=== PATIENT | female | born 1970 | race Caucasian/White ===

== ENCOUNTER 2024-06-25 19:35 | Emergency (ER) | payer OTHER, SELFPAY ==
[2024-06-25 19:51] VITALS: BP 124/77; PULSE 84; TEMP 37; O2SAT 97; BMI 25.3
--- NOTE | 2024-06-25 19:55 | ED_ITS ---
HPI HPI - Extremity Injury (Lower) General Chief Complaint: Extremity Injury, Lower Stated Complaint: Lower Pain Time Seen by Provider: 06/25/24 19:44 Source: patient Mode of arrival: walk-in Limitations: no limitations History of Present Illness HPI Narrative: 53-year-old female presents to the emergency department for pain to her right knee. She points to the ischial tuberosity region. Yesterday she tripped on a step and hit the knee on the corner of the step. No other injury was sustained, she did not hit her head. Is a sharp pain and it hurts more when she touches it or walks on it. Related Data Home Medications ?Medication ?Instructions ?Recorded ?Confirmed obeticholic acid 10 mg tablet mg 06/25/24 (Ocaliva) omeprazole 40 mg capsule,delayed mg 06/25/24 release phytonadione (vitamin K1) 5 mg mg 06/25/24 tablet ursodiol 300 mg capsule mg 06/25/24 Allergies Allergy/AdvReac Type Severity Reaction Status Date / Time codeine Allergy other Verified 06/25/24 19:55 Opioid HPI Opioid Management Most Recent Pain and Opioid Data: Last Pain Scale 6 06/25/24 20:09 06/25/24 Review of Systems ROS Narrative A ten point review of systems is negative except as noted above. PFSH PFSH Social History Little interest or pleasure in doing things: not at all Feeling down, depressed, or hopeless: not at all Exam Narrative Exam Narrative: Nurses note and vital signs reviewed and patient is not hypoxic. General: The patient appears well and in no apparent distress. Patient is resting comfortably on cart. Skin: Warm, dry, no pallor noted. There is no rash noted. Head: Normocephalic, atraumatic Eye: Normal conjunctiva, no drainage Ears, Nose, Mouth, and Throat: oral mucosa is moist. Nares patent. Cardiovascular: Regular Rate and Rhythm Respiratory: Patient is in no distress, no accessory muscle use Back: non-tender GI: Nontender Musculoskeletal: The right knee has no visible swelling. She has some tenderness in the tibial tuberosity region. Skin intact, no abrasion or sw elling or erythema. Her knee has good range of motion. Neurological: A&O, normal speech Psychiatric: Cooperative Constitutional Vital Signs, click to edit/add: Last Vital Signs Temp 98.6 F 06/25/24 19:51 Pulse 84 06/25/24 19:51 Resp 20 06/25/24 19:51 BP 124/77 06/25/24 19:51 Pulse Ox 97 06/25/24 19:51 O2 Del Method Room Air 06/25/24 19:51 Course Vital Signs Vital signs: Vital Signs Temperature 98.6 F 06/25/24 19:51 Pulse Rate 84 06/25/24 19:51 Respiratory Rate 20 06/25/24 19:51 Blood Pressure 124/77 06/25/24 19:51 Pulse Oximetry 97 06/25/24 19:51 Oxygen Delivery Method Room Air 06/25/24 19:51 Temperature 98.6 F 06/25/24 19:51 Pulse Rate 84 06/25/24 19:51 Respiratory Rate 20 06/25/24 19:51 Blood Pressure 124/77 06/25/24 19:51 Pulse Oximetry 97 06/25/24 19:51 Oxygen Delivery Method Room Air 06/25/24 19:51 MDM - Extremity Injury (Lower) MDM Narrative Medical decision making narrative: My clinical impression is that the patient has a knee contusion. Mj wrap applied, application checked by me and found to be appropriate, she is neurovascularly intact. She was recommended ice and ibuprofen. Treatment diagnosis and follow-up were discussed with the patient. Differential Diagnosis Differential diagnosis: Likely other (Contusion, fracture) Imaging Data Right knee x-ray: My impression: No acute findings, degenerative changes present Discharge Plan Discharge Chief Complaint: Extremity Injury, Lower Clinical Impression: Contusion of right knee Patient Disposition: Home, Self-Care Time of Disposition Decision: 21:05 Condition: Good Mode of Transportation: Private Vehicle Prescriptions / Home Meds: No Action omeprazole 40 mg capsule,delayed release(DR/EC) ursodiol 300 mg capsule phytonadione (vitamin K1) 5 mg tablet Ocaliva 10 mg tablet Print Language: Moldovan Instructions: Contusion in Adults (ED) Referrals: LAURIE POSEY [Primary Care Provider] - 1 week
--- NOTE | 2024-06-25 20:08 | XR_ITS ---
[facility] [id number] Patient Name: DEMARCUS PRADO MRN: [id number] date: 1970 Sex: F Assigned Patient Location: ER Current Patient Location: Accession/Order Number: [id number] Exam Date: 06/25/2024 20:05 Report Date: 06/25/2024 21:34 At the request of: TJ CONDON Procedure: XR knee RT 3V EXAM: XR knee RT 3V HISTORY: fall COMPARISON: None. TECHNIQUE: 3 view right knee. FINDINGS: Osseous demineralization. No lytic or blastic or destructive bone process. No acute fracture. Joints are well-maintained. No significant narrowing. No subluxation, dislocation or joint effusion seen. There is some vascular calcifications/phleboliths along the medial left knee joints likely project intra-articular on lateral view. Extra-articular soft tissues are otherwise normal. XR/XR knee RT 3V IMPRESSION: 1. No acute bone or joint findings. Electronically authenticated by: GAMA FIGUEROA Date: 06/25/2024 21:34
== END 2024-06-25 21:12 | disposition home or self-care (01) ==
PROVIDERS: Emergency Provider Emergency Medicine; PCP Internal Medicine
DX: S80.01XA Contusion of right knee, initial encounter (principal); W01.10XA Fall on same level from slipping, tripping and stumbling with subsequent striking against unspecified object, initial encounter
CPT/HCPCS: 73562; 99283

== ENCOUNTER 2024-10-11 13:24 | Outpatient (OUT) | payer OTHER, SELFPAY ==
--- NOTE | 2024-10-11 13:30 | ECG_ITS ---
[facility] Test Date: 2024-10-11 Pat Name: DEMARCUS PRADO Department: Room: - Gender: Female Product Tester: : 1970 Requested By: LAURIE POSEY Order Number: [id number] Reading MD: NORMAN JONES Measurements Intervals [place] Rate: 81 P: 47 NC: 160 QRS: 65 QRSD: 100 T: 45 QT: 371 QTc: 431 Interpretive Statements SINUS RHYTHM No previous ECG available for comparison Electronically Signed On 10-12-2024 7:51:08 EST by NORMAN JONES
[2024-10-11 14:43] LABS: Basophils Percent Auto 0.3 % (0.2-2.0); Eosinophils Percent Auto 0.4 % (0.9-7.0); Hematocrit 42.4 % (36.0-48.0); Hemoglobin 13.5 g/dL (12.0-16.0); Immature Granulocytes Abs Auto 0.05 10^3/uL (0.00-0.03); Immature Granulocytes Pct Auto 0.6 % (0.0-0.5); Lymphocytes Absolute Auto 1.7 10^3/uL (1.2-3.8); Lymphocytes Percent Auto 21.6 % (20.5-60.0); Mean Corpuscular HGB Conc 31.8 g/dL (29.9-35.2); Mean Corpuscular Hemoglobin 31.3 pg (26.7-34.0); Mean Corpuscular Volume 98.4 fL (81.0-99.0); Mean Platelet Volume 10.1 fL (9.5-13.5); Monocytes Absolute Auto 0.6 10^3/uL (0.3-0.8); Monocytes Percent Auto 7.3 % (1.7-12.0); Neutrophils Absolute Auto 5.5 10^3/uL (1.4-6.5); Neutrophils Percent Auto 69.8 % (43.0-75.0); Platelet Count 261 10^3/uL (150-450); Red Blood Count 4.31 10^6/uL (4.20-5.40); Red Cell Distribution Width 12.7 % (11.0-15.0); White Blood Count 7.9 10^3/uL (4.0-11.0)
[2024-10-11 14:49] LABS: Anion Gap 9.4; BUN Creatinine Ratio 17.4; Calcium 8.7 mg/dL (8.5-10.1); Chloride 102 mmol/L (98-107); Estimated GFR (African America >60 (>=60 mL/min/1.73m^2); Estimated GFR (Non-African Ame >60 (>=60 mL/min/1.73m^2); Glucose 87 mg/dL (74-106); Potassium 3.4 mmol/L (3.5-5.1); Sodium 139 mmol/L (136-145)
[2024-10-11 15:07] LABS: INR 1.03; Partial Thromboplastin Time 29.1 sec (22.3-36.2); Prothrombin Time 10.9 sec (9.0-11.6)
[2024-10-15 13:05] LABS: Alanine Aminotransferase 55 U/L (14-59); Albumin Level 3.4 g/dL (3.4-5.0); Alkaline Phosphatase 514 U/L (46-116); Aspartate Amino Transferase 32 U/L (15-37); Bilirubin Direct <0.1 mg/dL (0.0-0.2); Bilirubin Total 0.2 mg/dL (0.2-1.0); Globulin 3.4 g/dL; Total Protein 6.8 g/dL (6.4-8.2)
== END 2024-10-11 13:25 | disposition home or self-care (01) ==
LOC: PST 13:25
PROVIDERS: PCP Internal Medicine; Visit Provider Otolaryngology
DX: Z01.810 Encounter for preprocedural cardiovascular examination (principal); Z01.812 Encounter for preprocedural laboratory examination; H69.91 Unspecified Eustachian tube disorder, right ear
CPT/HCPCS: 36415; 80048; 80076; 85025; 85610; 85730; 87811; 93005

== ENCOUNTER 2024-10-17 07:27 | Day surgery (SDC) | payer OTHER, SELFPAY ==
[2024-10-11 13:45] VITALS: BP 114/75; PULSE 99; TEMP 36.2; O2SAT 95; BMI 24.9
[2024-10-17] VITALS (10 sets, daily range): BP systolic 97–129; BP diastolic 61–81; PULSE 65–81; TEMP 36.1; O2SAT 93–99; BMI 24.8
--- NOTE | 2024-10-17 | OP_ITS ---
OPERATION DATE: 10/17/2024 PRIMARY CARE PHYSICIAN: Raul Christianson D.O. SURGEON: Mariel Ramos M.D. PREOPERATIVE DIAGNOSIS: Right eustachian tube dysfunction. POSTOPERATIVE DIAGNOSIS: Right eustachian tube dysfunction. PROCEDURE: Right myringotomy and tube with microdissection, placement of a T- tube. ANESTHESIA: General. COMPLICATIONS: None. FINDINGS: Right serous effusion with deep inferior and posterior tympanic membrane retraction. INDICATIONS: This 53-year-old woman with a history of multiple tubes as a youngster presented with a recent ear infection on the right with clear evidence of deep tympanic membrane retraction due to chronic eustachian tube dysfunction. PROCEDURE: Patient identified in the holding area and taken back to the OR where she was placed in the supine position. After induction of general anesthesia by LMA, the right ear was approached with the otomicroscope. Nitrous oxide was used for anesthesia, but because there was no air filled space in the middle ear or mastoids, there was no reduction of the tympanic membrane retraction. An anterior radial myringotomy was performed. Serous effusion suctioned from the ear, and a modified Mp?s T-tube was folded and inserted through the myringotomy using microdissection. The tube was then opened in the middle ear and suction used to try to gently reduce the retraction. The retraction could not be reduced from the incus and stapes head. Patient was then awakened and taken to the recovery room in good condition. WILLIAM
--- OUTSIDE RECORDS SUMMARY | 2024-10-17 07:30 | XMS_ITS | CCD ---
Author Organization [facility] Care Team Providers Care Sterile Instrument Technician Name Role Phone GIOVANNY HINSON Admitting Unavailable GIOVANNY HINSON Attending Unavailable LAURIE POSEY Referring Unavailable GIOVANNY HINSON Consulting Unavailable RAMIRO IRIZARRY V Consulting Unavailable GIOVANNY HINSON Admitting Unavailable GIOVANNY HINSON Attending Unavailable GIOVANNY HINSON Consulting Unavailable [facility] [place], DOCTOR Consulting Unavailable GIOVANNY HINSON Admitting Unavailable GIOVANNY HINSON Attending Unavailable Brandy Hernandez Unavailable Lance Nogueira Unavailable Oly Ruff Unavailable DO Laurie Posey Primary Care Provider BOOGIE Hernandez Attending Provider [phone] Brandy Hernandez Attending Unavailable Brandy Hernandez Admitting Unavailable Laurie Posey Primary Care Unavailable Va ARIAS-Lisette DRISCOLL Primary Care Provider RAUL CHRISTIANSON Referring Unavailable RAUL CHRISTIANSON Primary Care Unavailable Raul Christianson MD Primary Care Provider [phone] Raul Christianson DO Primary Care Provider LISETTE NOVA Referring Unavailable LISETTE NOVA Primary Care Unavailable LANCE NOGUEIRA Referring Unavailable LISETTE NOVA Primary Care Unavailable LAURIE POSEY Admitting Unavailable LAURIE POSEY Attending Unavailable RAUL CHRISTIANSON Primary Care Unavailable LISETTE NOVA Attending Unavailable LISETTE NOVA Referring Unavailable KUNS, LISETTE KHAN Primary Care Unavailable JOSE PAINTER Attending Unavailable LISETTE NOVA Referring Unavailable ANYSLISETTE Primary Care Unavailable LISETTE NOVA Attending Unavailable LISETTE NOVA Referring Unavailable KUNSLISETTE Primary Care Unavailable FURLONG, RAUL G Attending Unavailable ANYKushLISETTE Referring Unavailable FURLONG, RAUL G Primary Care Unavailable FURLONG, RAUL G Attending Unavailable FURLONG, RAUL G Referring Unavailable FURLONG, RAUL G Primary Care Unavailable JOSE PAINTER Attending Unavailable FURLONG, RAUL G Referring Unavailable FURLONG, RAUL G Primary Care Unavailable ANYKushLISETTEPIPER Attending Unavailable VALISETTEPIPER Referring Unavailable ANYS, PIPER Primary Care Unavailable LISETTE NOVA Attending Unavailable LISETTE NOVA Referring Unavailable VA, PIPER Primary Care Unavailable OKSANA JENNY W Attending Unavailable LISETTE NOVA Referring Unavailable GANDHI JENNY W Attending Unavailable GANDHI JENNY W Referring Unavailable GANDHI JENNY W Attending Unavailable GANDHI JENNY W Attending Unavailable GANDHI JENNY W Attending Unavailable GANDHI JENNY W Attending Unavailable TRAE GANN Attending Unavailable Allergies Allergy Classification Reported Allergen(s) Allergy Type Date of Onset Reaction(s) Facility [facility]io[facility]on[facility] (1 source) Codeine; Translations: [CODEINE] Drug Allergy 2 [facility] (20 sources) Codeine; Translations: [CODEINE] Drug Allergy 9 GI Disturbance, GI intolerance [facility] (1 source) Codeine Drug Allergy 9 [facility] Medications Current Medications Medication Drug Class(es) Dates Sig (Normalized) Sig (Original) [id number] 200 actuat albuterol 0.09 mg/actuat metered dose inhaler (20 sources) beta2-Adrenergic Agonist Start: 04-23-2024 take 2 puff(s) by inhalation every four hours albuterol HFA 90 mcg/act inhaler Inhale 2 puffs every 4 (four) hours if needed 04/23/2024 Active Start: 04-23-2024 take 2 puff(s) by mo uth every four hours as needed for wheezing albuterol (PROVENTIL HFA;VENTOLIN HFA) 90 mcg/actuation inhaler Indications: Bronchitis inhale 2 puffs by mouth every 4 hours as needed for wheezing 8.5 g 1 04/23/2024 Active Start: 10-25-2023 take 2 puff(s) by mo uth every six hours for wheezing albuterol (PROVENTIL HFA;VENTOLIN HFA) 90 mcg/actuation inhaler Indications: Bronchitis inhale 2 puffs by mouth and INTO THE LUNGS every 6 hours if needed for wheezing 8.5 g 1 10/25/2023 Active Start: 09-01-2023 End: 10-25-2023 take 2 puff(s) by inhalation every six hours as needed for wheezing albuterol (PROVENTIL HFA;VENTOLIN HFA) 90 mcg/actuation inhaler Indications: Bronchitis Inhale 2 puffs every 6 (six) hours as needed for wheezing. 18 g 1 09/01/2023 10/25/2023 Discontinued Start: 06-11-2022 take 2 puff(s) by in halation every four hours as needed Albuterol Sulfate HFA 108 (90 Base) MCG/ACT 2 puffs as needed Inhalation every 4 hrs Jun, Active Start: 06-11-2022 take 2 puff(s) by in halation every four hours as needed Albuterol Sulfate HFA 108 (90 Base) MCG/ACT 2 puffs as needed Inhalation every 4 hrs Jun, Active Start: 06-11-2022 Start: 06-11-2022 take 2 puff(s) by in halation every four hours as needed Albuterol Sulfate HFA 108 (90 Base) MCG/ACT 2 puffs as needed Inhalation every 4 hrs Jun, Active amoxicillin 500 mg oral capsule (2 sources) Penicillin-class Antibacterial Start: 09-01-2023 End: 09-08-2023 take 1 capsule by mouth in the morning, then take 1 capsule by mouth at bedtime amoxicillin (AMOXIL) 500 mg capsule Take 1 capsule (500 mg total) by mouth in the morning and 1 capsule (500 mg total) before bedtime. Do all this for 7 days. 14 capsule 0 09/01/2023 09/08/2023 Active Start: 06-11-2022 take 1 tablet by nadeen every twelve hours Amoxicillin 875 MG 1 tablet Orally every 12 hrs for 7 days Jun, Active amoxicillin 875 mg / clavulanate 125 mg oral tablet (7 sources) Penicillin-class Antibacterial Start: 10-04-2024 End: 10-14-2024 take 1 tablet by mouth in the morning amoxicillin-clavulanate (Augmentin) 875-125 MG tablet Indications: Acute suppurative otitis media without spontaneous rupture of ear drum, recurrence not specified, unspecified laterality Take 1 tablet (875 mg) by mouth in the morning and 1 tablet (875 mg) before bedtime. Do all this for 10 days. 20 tablet 10/04/2024 10/14/2024 Active Start: 08-16-2024 take 1 tablet by nadeen th twice daily at mealtime amoxicillin-pot clavulanate (AUGMENTIN) 875-125 mg per tablet TAKE 1 TABLET BY MOUTH TWICE DAILY FOR 10 DAYS. TAKE WITH FOOD 08/16/2024 Active Start: 09-11-2023 End: 09-21-2023 take 1 tablet by mouth once in the morning amoxicillin-pot clavulanate (AUGMENTIN) 875-125 mg per tablet Take 1 tablet by mouth in the morning and 1 tablet before bedtime. Do all this for 10 days. 20 tablet 0 09/11/2023 09/21/2023 Active benzocaine 15 mg / menthol 2.6 mg oral lozenge (20 sources) Standardized Chemical Allergen Start: 09-01-2023 benzocaine-menthoL (CEPACOL SORE THROAT, DAWSON-MEN,) 15-2.6 mg lozenge Dissolve 1 lozenge in the mouth every 2 (two) hours as needed (sore throat). 14 lozenge 1 09/01/2023 Active benzocaine-menth ol (Cepastat Sore Throat) 15-3.6 MG Dissolve 1 lozenge in the mouth every 2 (two) hours if needed for sore throat Active biotin 1 mg oral capsule (20 sources) biotin 1 MG caps ule Take by mouth. Active take 1 tablet by mouth in the mo rning biotin 1 mg tablet Take 1 tablet (1 mg total) by mouth in the morning. Active calcium carbonate 1500 mg oral tablet (20 sources) Start: 07-18-2019 take 1 tablet by mouth twice daily Calcium Carbonate (Calcium 600) 600 mg calcium (1,500 mg) Tablet Active 600 MG PO Twice daily July 18, 2019 12:00am calcium carbonat e (Tums) 500 MG chewable tablet Chew 500 mg in the morning. Active calcium carbonat e (OS-NILESH) 500 mg calcium (1,250 mg) chewable tablet Chew 1 tablet (500 mg total) and swallow in the morning. Active cholecalciferol 1.25 mg oral tablet (20 sources) Vitamin D Start: 07-18-2019 take 17569 [IU] by mouth twice daily Cholecalciferol (Vitamin D3) Active 62510 UNIT PO Twice daily July 18, 2019 12:00am take 1 capsule by mouth every we ek cholecalciferol (Vitamin D-3) 1.25 MG (54597 UT) capsule Take 50,000 Units by mouth 1 (one) time per week. Active take 1 capsule by mouth in the m orning cholecalciferol (VITAMIN D3) 50,000 units capsule Take 1 capsule (50,000 Units total) by mouth in the morning. Active take 1 capsule by [facility] every twenty-four hours D3-50 1.25 MG (88655 UT) 1 capsule Oral ONCE A DAY for 30 Active take 1 capsule by mouth twice da judy D3-50 1.25 MG (42227 UT) take 1 capsule by mouth twice a day Oral for 30 Active clindamycin 300 mg oral capsule (2 sources) Lincosamide Antibacterial Start: 10-13-2023 End: 10-20-2023 take 1 capsule by mouth three times daily clindamycin (CLEOCIN) 300 mg capsule Indications: Osteomyelitis of left foot, unspecified type ([facility]) Take 1 capsule (300 mg total) by mouth 3 (three) times a day for 7 days. 21 capsule 0 10/13/2023 10/20/2023 Active Start: 12-22-2021 take 1 capsule by [facility] every eight hours Clindamycin HCl 300 MG 1 cap(s) Orally tid for 10 day(s) Dec, Active 12 hr dextromethorphan hydrobromide 60 mg / guaiFENesin 1200 mg extended release oral tablet (16 sources) Uncompetitive C-umxfur-N-aspartate Receptor Antagonist, Sigma-1 Agonist Start: 08-16-2024 take 60-1200 mg by mouth every twelve hours as needed Dextromethorphan-guaiFENesin (Mucus Relief DM Max) 60-1200 MG tablet sustained-release 12 hour TAKE 1 TABLET BY MOUTH EVERY 12 HOURS NEEDED FOR COUGH AND CONGESTION WITH A FULL GLASS OF WATER. 08/16/2024 Active Start: 10-13-2023 End: 10-23-2023 take 1 tablet by mouth every hour as needed dextromethorphan-guaiFENesin (MUCINEX DM ) 30-600 mg tablet extended release 12 hr Indications: COVID Take 1 tablet by mouth every 12 (twelve) hours as needed (cough and congestion) for up to 10 days. 20 tablet 0 10/13/2023 10/23/2023 Active dextromethorphan hydrobromide 3 mg/ml / promethazine hydrochloride 1.25 mg/ml oral solution (20 sources) Phenothiazine, Uncompetitive L-execky-C-aspartate Receptor Antagonist, Sigma-1 Agonist Start: 09-11-2023 promethazine-dextromethorpha n (Phenergan-DM) 6.25-15 MG/5ML syrup Take 5 mL by mouth 4 (four) times a day as needed 09/11/2023 Active escitalopram 20 mg oral tablet (20 sources) Serotonin Reuptake Inhibitor Start: 06-24-2024 escitalopram (LEXAPRO) 20 mg tablet Take 1.5 tablets (30 mg total) by mouth in the morning. Taking 1 1/2 tabs. 06/24/2024 Active Start: 06-16-2023 End: 06-24-2024 take 1 tablet by mouth once daily in the morning escitalopram (LEXAPRO) 20 mg tablet take 1 tablet by mouth every morning 90 tablet 1 06/16/2023 06/24/2024 Discontinued take 1 tablet by nadeen th once daily in the morning Escitalopram Oxalate 10 MG take 1 tablet by mouth every morning Oral for 30 Days Active ferrous sulfate 325 mg oral tablet (20 sources) Start: 07-18-2019 take 1 tablet by mouth in the morning, then take 1 tablet by mouth at bedtime FeroSuL 325 mg (65 mg iron) tablet Take 1 tablet (325 mg total) by mouth in the morning and 1 tablet (325 mg total) before bedtime. 05/29/2022 Active ferrous sulfate 8.8 mg/mL elemental iron elixir 65 mg of iron. Active fluticasone propionate 0.05 mg/actuat metered dose nasal spray (20 sources) Corticosteroid Start: 06-24-2024 fluticasone pr opionate (FLONASE) 50 mcg/actuation nasal spray Administer 1 spray into each nostril as needed for rhinitis. 16 g 5 06/24/2024 Active Start: 06-11-2022 End: 06-24-2024 fluticasone propionate (FLON ASE) 50 mcg/actuation nasal spray Administer 1 spray into each nostril as needed. 06/11/2022 06/24/2024 Discontinued (Reorder) Start: 06-11-2022 take 1 spray(s) nasa l route once daily Fluticasone Propionate 50 MCG/ACT 1 spray in each nostril Nasally Once a day for 30 day(s) Jun, Active Start: 06-11-2022 take 1 spray(s) nasa l route once daily Fluticasone Propionate 50 MCG/ACT 1 spray in each nostril Nasally Once a day for 30 day(s) Jun, Active Start: 06-11-2022 take 1 spray(s) nasa l route in the morning fluticasone (Flonase) 50 MCG/ACT nasal spray Administer 1 spray into each nostril in the morning. Shake gently. Before first use, prime pump. After use, clean tip and replace cap.. Active 12 hr guaiFENesin 600 mg extended release oral tablet (20 sources) Start: 09-01-2023 take 1 tablet by mouth once guaiFENesin (MUCINEX) 600 mg tablet extended release 12hr Take 1 tablet (600 mg total) by mouth every 12 (twelve) hours. 20 tablet 1 09/01/2023 Active inhalational spacing device (AEROCHAMBER MV) spacer (20 sources) Start: 09-01-2023 inhalational s pacing device (AEROCHAMBER MV) spacer 1 each by miscellaneous route every 6 (six) hours as needed (use with albuterol). 1 each 09/01/2023 Active Start: 09-01-2023 inhalational s pacing device (AEROCHAMBER MV) spacer 1 each by miscellaneous route every 6 (six) hours as needed (use with albuterol). 1 each 0 09/01/2023 Active methylPREDNISolone 4 mg oral tablet (1 source) Corticosteroid Start: 06-11-2022 methylPREDNISo lone 4 MG as directed Orally Once a day for 6 days Jun, Active qfuunxjoujko-sxnvbxjd-gutu in (MULTIVITAMIN 50 PLUS) tablet (20 sources) multivitamin-min erals-lut ein (MULTIVITAMIN 50 PLUS) tablet 1 tablet in the morning. Active multivitamin-min erals-lutein (MULTIVITAMIN 50 PLUS) tablet 1 tablet in the morning. 0 Active 24 hr nicotine 0.875 mg/hr transdermal system (20 sources) Cholinergic Nicotinic Agonist Start: 05-18-2023 apply 1 dose transdermal route once daily nicotine (NICODERM CQ) 21 mg/[address] 1 patch on the skin daily. 30 patch 1 05/18/2023 Active apply 1 dose transdermal route o nce daily Nicotine 14 MG/24HR apply 1 patch TO CLEAN, DRY, AND INTACT SKIN REMOVE AND REPLACE once daily Transdermal for 28 Not-Taking obeticholic acid 10 mg oral tablet (20 sources) Farnesoid X Receptor Agonist Start: 11-16-2023 Ocaliva 10 MG tablet 11/16/2023 Active Start: 06-15-2023 OCALIVA 5 mg t ablet 06/15/2023 Active Start: 05-31-2023 take 1 tablet by nadeen once daily Obeticholic Acid 5 MG 1 tablet Orally Once a day for 90 days [facility] APPROVAL NUMBER - [id number] VALID 06/02/23-05/31/24 May, Active omeprazole 40 mg delayed release oral capsule (20 sources) Proton Pump Inhibitor Start: 09-04-2022 omeprazo le (PriLOSEC) 40 mg capsule 1 capsule (40 mg total) in the morning and 1 capsule (40 mg total) before bedtime. 09/04/2022 Active PriLOSEC Active predniSONE 20 mg oral tablet (11 sources) Start: 11-02-2023 End: 11-09-2023 take 1 tablet by mouth in the morning predniSONE (DELTASONE) 20 mg tablet Indications: COVID Take 1 tablet (20 mg total) by mouth in the morning for 7 days. 7 tablet 0 11/02/2023 11/09/2023 Active Start: 09-11-2023 End: 09-18-2023 take 1 tablet by mouth in the morning predniSONE (DELTASONE) 20 mg tablet Take 1 tablet (20 mg total) by mouth in the morning for 7 days. 7 tablet 0 09/11/2023 09/18/2023 Active Start: 09-01-2023 End: 09-06-2023 take 1 tablet by mouth in the morning, then take 1 tablet by mouth at bedtime predniSONE (DELTASONE) 20 mg tablet Take 1 tablet (20 mg total) by mouth in the morning and 1 tablet (20 mg total) before bedtime. Do all this for 5 days. 10 tablet 0 09/01/2023 09/06/2023 Active Start: 11-02-2022 predniSONE 10 MG 2 tablets x 3 days then 1 tablet x 3 days Orally Once a day for 6 days Nov, Not-Taking/PRN Start: 11-02-2022 RA One Daily Maximum - (14 sources) take 1 tablet by mouth twice waldemar ly RA One Daily Maximum - take 1 tablet by mouth twice a day Oral for 30 Active Tab-A-Nae/Beta Carotene - (6 sources) take 1 tablet by mouth twice daily Tab-A-Nae/Beta Carotene - take 1 tablet by mouth twice a day Oral for 30 Active tiZANidine 4 mg oral tablet (20 sources) Central alpha-2 Adrenergic Agonist Start: 06-08-20 take 1 tablet by mouth at bedtime tiZANidine (ZANAFLEX) 4 mg tablet Indications: Degeneration of lumbar intervertebral disc Take 1 tablet (4 mg total) by mouth in the morning and at bedtime. 60 tablet 2 06/08/2022 Active Zanaflex 4 MG 1 capsule as needed Orally PRN ONLY Active Zanaflex Active traMADol hydrochloride 50 mg oral tablet (20 sources) Opioid Agonist Start: 10-01-2024 End: 10-31-2024 take 1 tablet by mouth every six hours as needed for pain traMADoL (ULTRAM) 50 mg tablet Indications: Degeneration of inte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 Take 1 tablet (50 mg total) by mouth every 6 (six) hours as needed for pain for up to 30 days. 120 tablet 10/01/2024 10/31/2024 Active Start: 08-29-2024 End: 09-28-2024 take 1 tablet by mouth four times daily at bedtime as needed for pain traMADoL (ULTRAM) 50 mg tablet Indications: Degeneration of lumbar intervertebral disc Take 1 tablet (50 mg total) by mouth 4 (four) times daily after meals and at bedtime as needed (as needed for back pain) for up to 30 days. 120 tablet 08/29/2024 09/28/2024 Active Start: 07-26-2024 End: 08-26-2024 take 1 tablet by mouth four times daily at bedtime as needed for pain traMADoL (ULTRAM) 50 mg tablet Indications: Degeneration of lumbar intervertebral disc Take 1 tablet (50 mg total) by mouth 4 (four) times daily after meals and at bedtime as needed (as needed for back pain) for up to 30 days. 120 tablet 07/26/2024 08/26/2024 Discontinued (Reorder) Start: 06-20-2024 End: 07-20-2024 take 1 tablet by mouth four times daily at bedtime as needed for pain traMADoL (ULTRAM) 50 mg tablet Indications: Degeneration of lumbar intervertebral disc Take 1 tablet (50 mg total) by mouth 4 (four) times daily after meals and at bedtime as needed (as needed for back pain) for up to 30 days. 120 tablet 06/20/2024 07/20/2024 Active Start: 01-04-2024 End: 02-03-2024 take 1 tablet by mouth four times daily at bedtime as needed for pain traMADoL (ULTRAM) 50 mg tablet Indications: Degeneration of lumbar intervertebral disc Take 1 tablet (50 mg total) by mouth 4 (four) times daily after meals and at bedtime as needed (as needed for back pain) for up to 30 days. 120 tablet 01/04/2024 02/03/2024 Active Start: 11-02-2023 End: 12-30-2023 take 1 tablet by mouth four times daily at bedtime as needed for pain traMADoL (ULTRAM) 50 mg tablet Indications: Degeneration of lumbar intervertebral disc Take 1 tablet (50 mg total) by mouth 4 (four) times daily after meals and at bedtime as needed (as needed for back pain) for up to 30 days. 120 tablet 0 11/30/2023 12/30/2023 Active Start: 09-29-2023 End: 10-29-2023 take 1 tablet by mouth four times daily at bedtime as needed for pain traMADoL (ULTRAM) 50 mg tablet Indications: Degeneration of lumbar intervertebral disc Take 1 tablet (50 mg total) by mouth 4 (four) times daily after meals and at bedtime as needed (as needed for back pain) for up to 30 days. 120 tablet 0 09/29/2023 10/29/2023 Active Start: 07-25-2023 End: 09-24-2023 take 1 tablet by mouth four times daily at bedtime as needed for pain traMADoL (ULTRAM) 50 mg tablet Indications: Degeneration of lumbar intervertebral disc Take 1 tablet (50 mg total) by mouth 4 (four) times daily after meals and at bedtime as needed (as needed for back pain) for up to 30 days. 120 tablet 0 08/25/2023 09/24/2023 Active Start: 07-18-2019 take 50 mg by mouth three times daily Tramadol Active 50 MG PO Three times daily July 18, 2019 12:00am ursodiol 300 mg oral capsule (20 sources) Bile Acid Start: 12-23-2020 ursodiol (Actigall) 300 MG capsule 09/08/2024 Active valACYclovir 1000 mg oral tablet (20 sources) Herpesvirus Nucleoside Analog DNA Polymerase Inhibitor, Herpes Simplex Virus Nucleoside Analog DNA Polymerase Inhibitor, Herpes Zoster Virus Nucleoside Analog DNA Polymerase Inhibitor Start: 06-24-2024 take 2 tablets by mouth twice daily as needed valACYclovir (VALTREX) 1000 mg tablet Take 2 tablets (2,000 mg total) by mouth 2 (two) times a day as needed (cold sore). 06/24/2024 Active Start: 06-18-2023 End: 06-24-2024 take 2 tablets by mouth every twelve hours valACYclovir (VALTREX) 1000 mg tablet take 2 tablets by mouth every 12 hours for 1 day 4 tablet 5 06/18/2023 06/24/2024 Discontinued valACYclovir (Va ltrex) 1 g tablet Take 1,000 mg by mouth in the morning and 1,000 mg before bedtime. Active vitamin k 0.1 mg oral tablet (20 sources) phytonadione (Vi tamin K) 100 MCG tablet Take by mouth. Active phytonadione, vi t K1, (phytonadione, vitamin K1,) 100 mcg tablet Take 12 tablets (1,200 mcg total) by mouth once a week. Active zinc gluconate 50 mg oral tablet (20 sources) take 1 tablet by nadeen th in the morning zinc gluconate 50 MG tablet Take 50 mg by mouth in the morning. Active Completed/Discontinued Medications Medication Drug Class(es) Dates Sig (Normalized) Sig (Original) cefuroxime 500 mg oral tablet (7 sources) Cephalosporin Antibacterial Start: 11-02-2022 take 1 tablet by mouth every twelve hours Cefuroxime Axetil 500 MG 1 tablet Orally every 12 hrs for 7 days Nov, Not-Taking/PRN cephalexin 500 mg oral capsule (13 sources) Cephalosporin Antibacterial Start: 10-06-2023 End: 10-13-2023 CEPHalexin (KEFLEX) 500 mg capsule Take 1 capsule (500 mg total) by mouth in the morning and 1 capsule (500 mg total) at noon and 1 capsule (500 mg total) in the evening and 1 capsule (500 mg total) before bedtime. Do all this for 7 days. 28 capsule 0 10/06/2023 10/13/2023 Start: 03-01-2023 take 1 capsule by mo uth every eight hours Cephalexin 500 MG 1 capsule Orally tid for 10 day(s) Feb, Active Start: 06-28-2021 take 1 capsule by mo uth every eight hours Cephalexin 500 MG 1 capsule Orally three times a day for 7 days Jun, Active Cephalexin Activ e phenazopyridine hydrochloride 200 mg oral tablet (20 sources) Start: 08-24-2022 End: 09-11-2023 take 1 tablet by mouth three times daily as needed for muscle spasms phenazopyridine (PYRIDIUM) 200 mg tablet Indications: Acute cystitis without hematuria Take 1 tablet (200 mg total) by mouth 3 (three) times a day as needed for bladder spasms. 10 tablet 0 08/24/2022 09/11/2023 Discontinued (Therapy completed) Start: 06-28-2021 take 1 tablet by nadeen th every eight hours Pyridium 200 MG 1 tablet after meals Orally Three times a day for 2 day(s) Jun, Active take 1 tablet by nadeen th three times daily as needed for muscle spasms phenazopyridine (Pyridium) 200 MG tablet Take 200 mg by mouth 3 (three) times a day as needed for bladder spasms. Active Problems Active Problems Problem Classification Problem Date Documented Da te Episodic/Chronic Abdominal pain (14 sources) Abdominal pain; Translations: [Unspecified abdominal pain] Episodic Anxiety disorders (19 sources) Anxiety; Translations: [Anxiety disorder, unspecified] Onset: 09-03-2024 03-04-2024 Chronic Fracture of lower limb (1 source) Closed fracture of first metatarsal bone ; Translations: [Nondisplaced fracture of first metatarsal bone, left foot, subsequent encounter for fracture with delayed healing] 11-09-2023 Episodic Genitourinary symptoms and ill-defined conditions (3 sources) Dysuria; Translations: [Dysuria] Onset: 06-28-2021 Resolved: 06-28-2021 Episodic Hepatitis (14 sources) Autoimmune hepatitis; Translations: [Autoimmune hepatitis] Chronic Infective arthritis and osteomyelitis (except that caused by tuberculosis or sexually transmitted disease) (3 sources) Osteomyelitis of left foot; Translations: [Osteomyelitis, unspecified] Onset: 10-13-2023 10-13-2023 Chronic Nutritional deficiencies (1 source) Vitamin D deficiency, unspecified; Translations: [Vitamin D deficiency, unspecified] Onset: 11-07-2023 Chronic Other congenital anomalies (6 sources) Porokeratosis; Translations: [Other specified congenital malformations of skin] 06-06-2024 Chronic Other connective tissue disease (6 sources) Pain in both feet; Translations: [Pain in right foot] 06-06-2024 Episodic Other connective tissue disease (2 sources) Bilateral metatarsalgia; Translations: [Metatarsalgia, right foot] 06-06-2024 Episodic Other ear and sense organ disorders (1 source) Conductive hearing loss, unilateral, right ear, with unrestricted hearing on the contralateral side; Translations: [Conductive hearing loss, unilateral] 10-16-2024 Chronic Other gastrointestinal disorders (1 source) Intestinal malabsorption, unspecified; Translations: [Intestinal malabsorption, unspecified] Onset: 11-07-2023 Chronic Other gastrointestinal disorders (1 source) Feces contents abnormal; Translations: [Other fecal abnormalities] 06-17-2024 Episodic Other gastrointestinal disorders (1 source) Other fecal abnormalities; Translations: [Other fecal abnormalities] Onset: 07-17-2024 Episodic Other injuries and conditions due to external causes (1 source) Other injury of unspecified body region, initial encounter Episodic Other liver diseases (8 sources) Primary biliary cirrhosis; Translations: [PRIMARY BILIARY CIRRHOSIS] Onset: 08-26-2019 Resolved: 11-30-2021 Chronic Other liver diseases (20 sources) Primary biliary cholangitis; 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] Onset: 08-19-2019 05-06-2022 Chronic Other liver diseases (2 sources) Abnormal levels of other serum enzymes; Translations: [ABNORMAL LEVELS OTHER SERUM ENZYMES] Onset: 06-26-2019 Episodic Other liver diseases (13 sources) Liver enzymes abnormal; Translations: [Abnormal levels of other serum enzymes] Episodic Other nervous system disorders (20 sources) Carpal tunnel syndrome; Translations: [Carpal tunnel syndrome, unspecified upper limb] Onset: 05-06-2022 05-06-2022 Chronic Other nutritional; endocrine; and metabolic disorders (1 source) Overweight; Translations: [Overweight] 06-24-2024 Episodic Other skin disorders (6 sources) Callosity; Translations: [Corns and callosities] 06-06-2024 Episodic Other skin disorders (6 sources) Acquired keratoderma; 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] 06-06-2024 Episodic Other upper respiratory disease (1 source) Allergic rhinitis, unspecified Chronic Other upper respiratory infections (15 sources) Sinusitis; Translations: [Chronic sinusitis, unspecified] Chronic Otitis media and related conditions (11 sources) Unspecified nonsuppurative otitis media, right ear; Translations: [Finding of fluid behind tympanic membrane] Onset: 08-23-2024 Episodic Residual codes; unclassified (1 source) Viral syndrome; Translations: [Other general symptoms and signs] 10-13-2023 Episodic Spondylosis; intervertebral disc disorders; other back problems (20 sources) Degeneration of lumbar intervertebral disc; Translations: [Other intervertebral disc degeneration, lumbar region] Onset: 09-01-2020 05-06-2022 Chronic Substance-related disorders (1 source) Nicotine dependence, cigarettes, uncomplicated; Translations: [Nicotine dependence, cigarettes, uncomplicated] Onset: 03-04-2024 Chronic Unclassified (1 source) abnormal findings in stool Onset: 07-17-2024 Unclassified (1 source) Controlled Sub Onset: 03-04-2024 Unclassified (1 source) Sinus Problem Onset: 09-11-2023 Viral infection (2 sources) Disease caused by 2019-nCoV; Translations: [COVID-19] 10-13-2023 Episodic Viral infection (1 source) COVID-19; Translations: [COVID-19] Onset: 11-02-2023 Past or Other Problems Problem Classification Problem Date Documented Da te Episodic/Chronic Administrative/social admission (1 source) Counseling procedure with explicit context; Translations: [Tobacco abuse counseling] 09-11-2023 Episodic Chronic obstructive pulmonary disease and bronchiectasis (3 sources) Bronchitis; Translations: [Bronchitis, not specified as acute or chronic] Onset: 09-01-2023 10-25-2023 Episodic Deficiency and other anemia (20 sources) Anemia; Translations: [Anemia, unspecified] Onset: 05-06-2022 05-06-2022 Episodic Deficiency and other anemia (1 source) Iron deficiency anemia, unspecified; Translations: [Iron deficiency anemia, unspecified] Onset: 11-07-2023 Episodic Malaise and fatigue (20 sources) Malaise and fatigue; Translations: [Other malaise] Onset: 05-06-2022 05-06-2022 Episodic Mood disorders (20 sources) Mood disorders Onset: 09-11-2023 Resolved: 10-13-2023 09-11-2023 Nutritional deficiencies (2 sources) Dietary zinc deficiency; Translations: [Vitamin A deficiency, unspecified] Onset: 11-07-2023 Episodic Other gastrointestinal disorders (1 source) Bariatric surgery status; Translations: [Bariatric surgery status] Onset: 11-07-2023 Episodic Other gastrointestinal disorders (16 sources) Stool DNA-based colorectal cancer screening positive; Translations: [Other fecal abnormalities] Onset: 07-07-2024 07-17-2024 Episodic Other lower respiratory disease (1 source) Cough Onset: 09-01-2023 Episodic Other nutritional; endocrine; and metabolic disorders (20 sources) Obesity; Translations: [Obesity, unspecified] Onset: 05-06-2022 Resolved: 03-04-2024 05-06-2022 Chronic Other nutritional; endocrine; and metabolic disorders (1 source) Overweight; Translations: [Overweight] Onset: 03-04-2024 Episodic Other screening for suspected conditions (not mental disorders or infectious disease) (19 sources) Abnormal findings on diagnostic imaging of other abdominal regions, including retroperitoneum; Translations: [CT of abdomen abnormal] Onset: 06-20-2019 Episodic Other upper respiratory infections (4 sources) Acute pharyngitis, unspecified; Translations: [Upper respiratory infection] Onset: 09-11-2023 Episodic Residual codes; unclassified (1 source) Edema, unspecified; Translations: [Edema, unspecified] Onset: 11-07-2023 Episodic Residual codes; unclassified (1 source) Other general symptoms and signs; Translations: [Other general symptoms and signs] Onset: 10-13-2023 Episodic Skin and subcutaneous tissue infections (5 sources) Cellulitis of left lower limb; Translations: [Local infection of the skin and subcutaneous tissue, unspecified] Onset: 12-22-2021 Resolved: 12-22-2021 Episodic Spondylosis; intervertebral disc disorders; other back problems (20 sources) Chronic back pain ; Translations: [Dorsalgia, unspecified] Onset: 12-05-2017 05-06-2022 Episodic Unclassified (20 sources) Onset: 08-25-2022 08-25-2022 Urinary tract infections (20 sources) Acute cystitis with hematuria; Translations: [Recurrent urinary tract infection] Onset: 06-28-2021 Resolved: 06-28-2021 Episodic Varicose veins of lower extremity (20 sources) Varicose veins of lower extremity; Translations: [Asymptomatic varicose veins of unspecified lower extremity] Onset: 12-23-2021 05-06-2022 Episodic Results Test Name Value Interpretation Reference Range Facility Auditory function testson Right Ear: Mild conductive hearing loss from 250 Hz - 500 Hz and above 2K Hz Left Ear: Normal hearing. Possible air bone gaps - could not mask bone conduction [facility] LIVER PANELon 5 Albumin [Mass/Vol] 3.4 g/dL 3.4 - 5.0 g/dL [facility] ALBUMIN GLOBULIN RATIO 1 [facility] ALP [Catalytic activity/Vol] 514 U/L High 46 - 116 U/L [facility] ALT [Catalytic activity/Vol] 55 U/L 14 - 59 U/L [facility] AST [Catalytic activity/Vol] 32 U/L 15 - 37 U/L [facility] Bilirubin [Mass/Vol] 0.2 mg/dL 0.2 - 1 .0 mg/dL [facility] Bilirubin.indirect [Mass/Vol] mg/dL 0.0 - 0.2 mg/dL [facility] Globulin (S) [Mass/Vol] 3.4 g/dL [facility] Interpretation and review of laboratory results Abnormal [facility] Protein [Mass/Vol] 6.8 g/dL 6.4 - 8.2 g/dL [facility] ECG 12-LEADon 10-12-2024 [facility] [place] [id number] Electrocardiograph Report Signed Patient: ARUNA BENZ MR#: [id number] : 1970 Acct:[id number] Age/Sex: 53 / F ADM Date: 10/11/24 Loc: PST Attending Dr: Trae Gann M.D. Ordering Physician: Trae Gann M.D. Date of Service: 10/11/24 Procedure(s): ECG 12 lead Accession Number(s): [id number] cc: [facility] Test Date: 2024-10-11 Pat Name: ARUNA BENZ Department: Room: - Gender: Female Services Coordinator: : 1970 Requested By: LAURIE POSEY Order Number: [id number] Reading MD: CASH LALA Measurements Intervals [place] Rate: 81 P: 47 IA: 160 QRS: 65 QRSD: 100 T: 45 QT: 371 QTc: 431 Interpretive Statements SINUS RHYTHM No previous ECG available for comparison Electronically Signed On 10-12-2024 7:51:08 EST by CASH LALA Dictated By: Cash Lala D.O. Signed By: 10/12/24 0751 DD/ 1419 TD/TT: District Representative: [facility] Radiology, Radiologist, MD - 10/12/2024 [facility] [place] [id number] Electrocardiograph Report Signed Patient: ARUNA BENZ MR#: [id number] : 1970 Acct:[id number] Age/Sex: 53 / F ADM Date: 10/11/24 Loc: PST Attending Dr: Trae Gann M.D. Ordering Physician: Trae Gann M.D. Date of Service: 10/11/24 Procedure(s): ECG 12 lead Accession Number(s): [id number] cc: [facility] Test Date: 2024-10-11 Pat Name: ARUNA BENZ Department: Room: - Gender: Female Services Coordinator: : 1970 Requested By: LAURIE POSEY Order Number: [id number] Reading MD: CASH LALA Measurements Intervals [place] Rate: 81 P: 47 IA: 160 QRS: 65 QRSD: 100 T: 45 QT: 371 QTc: 431 Interpretive Statements SINUS RHYTHM No previous ECG available for comparison Electronically Signed On 10-12-2024 7:51:08 EST by CASH LALA Dictated By: Cash Lala D.O. Signed By: 10/12/24 0751 DD/ 1419 TD/TT: District Representative: [facility] ECG 12-LEADOrdered By: Radio logist Radiology on 10-12-2024 [facility] [employer] Work Phone: ALL BASIC METABOLIC PANELon 10-11-2024 Anion gap [Moles/Vol] 9.4 mmol/L [facility] Calcium [Mass/Vol] 8.7 mg/dL 8.5 - 10. 1 mg/dL [facility] Chloride [Moles/Vol] 102 mmol/L 98 - 10 7 mmol/L [facility] CO2 [Moles/Vol] 31 mmol/L 21.0 - 32.0 mmol/L [facility] Creatinine [Mass/Vol] 0.69 mg/dL 0.55 - 1.02 mg/dL [facility] GFR/1.73 sq M.predicted CKD-EPI (S/P/Bld) [Vol rate/Area] >60 >=60 mL/min/1.73m 2 [facility] Glucose [Mass/Vol] 87 mg/dL 74 - 106 mg/dL [facility] Interpretation and review of laboratory results Abnormal [facility] Potassium [Moles/Vol] 3.4 mmol/L Low 3.5 - 5.1 mmol/L [facility] Sodium [Moles/Vol] 139 mmol/L 136 - 145 mmol/L [facility] TBH EGFR-NON AF [place] >60 >=60 mL/min/1.73m 2 [facility] Urea nitrogen [Mass/Vol] 12 mg/dL 7.0 - 18.0 mg/dL [facility] Urea nitrogen/Creatinine [Mass ratio] 17.4 mg/mg [facility] Alexandre de Pariscar e ECG 12-LEADon 02-07-2025 Radiology Study observation (narrative) [facility] DRUG SCREEN, URINEon 024 AMPHETAMINE/METHAMP Negative Normal NEG [facility] Comment on above: Result Comment: AMPH /METH screening cut off = 1000 ng/mL Performed By: #### D HUMMEL #### [facility] ([id number]) [address], [address] [place] [address] BARBITURATES Negative Normal NEG [facility] Comment on above: Result Comment: Susanne iturates screening cut off value = 200 ng/mL Performed By: #### D HUMMEL #### [facility] ([id number]) [address], [address] [place] [address] BENZODIAZEPINES Negative Normal NEG [facility] Comment on above: Result Comment: Dawson odiazepines screening cut off value = 200 ng/mL Performed By: #### D HUMMEL #### [facility] ([id number]) [address], [address] [place] [address] CANNABINOIDS Negative Normal NEG [facility] Comment on above: Result Comment: Jenifer abinoids/THC screening cut off value = 50 ng/mL Performed By: #### D HUMMEL #### [facility] ([id number]) [address], [address] [place] [address] COCAINE METABOLITE Negative Normal NEG [facility] Comment on above: Result Comment: Coca ine screening cut off value = 300 ng/mL Performed By: #### D HUMMEL #### [facility] ([id number]) [address], [address] [place] [address] ECSTASY Negative Normal NEG [facility] Comment on above: Result Comment: Ecst asy screening cut off value = 500 ng/mL This report is intended for use in clinical monitoring or management of patients. Performed By: #### D HUMMEL #### [facility] ([id number]) [address], [address] [place] [address] METHADONE Negative Normal NEG [facility] Comment on above: Result Comment: Meth adone screening cut off value = 300 ng/mL. Performed By: #### D HUMMEL #### [facility] ([id number]) [address], [address] [place] [address] OPIATES Negative Normal NEG [facility] Comment on above: Result Comment: Opia eligio screening cut off value = 300 ng/mL NOTE: This test is used for the detection of codeine, hydrocodone (>1000 ng/mL), morphine and hydromorphone (>900 ng/mL) in urine. Performed By: #### D HUMMEL #### [facility] ([id number]) [address], [address] [place] [address] OXYCODONE Negative Normal NEG [facility] Comment on above: Result Comment: Oxyc odone screening cut off value = 300 ng/mL NOTE: This test is used for the detection of oxycodone and oxymorphone in urine. Performed By: #### D HUMMEL #### [facility] ([id number]) [address], [address] [place] [address] PHENCYCLIDINE Negative Normal NEG [facility] Comment on above: Result Comment: Phen cyclidine screening cut off value = 25 ng/mL Performed By: #### D HUMMEL #### [facility] ([id number]) [address], [address] [place] [address] MR FOOT LT WO CONTon 024 MR FOOT LT WO CONT MR FOOT LT WO CONT HISTORY AND/OR TECH NOTES Osteomyelitis of left foot, unspecified type ([facility]) No injury Since Sep 2023 cellulitis and 2nd toes in question Series ?8 PROCEDURE MRI of the left foot COMPARISON no comparison currently available FINDINGS The ankle and hindfoot are not included on the diagnostic imaging There is suggestion of mild arthritic change along the intertarsal and tarsometatarsal joints with trace effusions, probable mild reactive signal changes. No visible bone destruction or abnormal widening or fragmentation about the midfoot Lisfranc region There is no abnormal signal in the toes/phalanges There is no visible gas or foreign body artifact There is mild to moderate effusion first MTP without periarticular erosions or bone destruction There is mild effusion at the second through fifth metatarsal phalangeal joints There is intense signal abnormality within and around the distal second metatarsal head extending into the mid and distal shaft with mild surrounding soft tissue edema There is suggestion of a crescentic hypointense T1 abnormality at the articular surface with probable early flattening There is significant atrophy of the plantar and inter osseous musculature IMPRESSION: Intense signal abnormality distal second metatarsal with crescentic signal along the subcortical subchondral bone of the articular surface and mild flattening Joint effusion and periarticular edema and marrow edema involving the mid and distal metatarsal shaft The location, 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 This could also be seen with a subchondral insufficiency fracture Infection is considered less likely particularly given no adjacent ulcer, soft tissue gas or foreign body and given the lack of abnormal signal adjacent proximal phalangeal base Mild arthritic changes at the midfoot without fragmentation or bone destruction or malalignment Severe fatty replacement and atrophy of the musculature in the mid and forefoot Finalized by Braden Wang MD on 11/08/2023 1:49 PM Normal [facility] COMPREHENSIVE METABOLIC PANE [place] 11-07-2023 Albumin [Mass/Vol] 4.2 g/dL Normal 3.2-5.3 [facility] Comment on above: Performed By: #### C ANDRE #### [facility] ([id number]) [address] [place] [address], [address] [place] [address] #### 9622-2 #### [facility] ([id number]) [address] [place] [address], [place] [address] ALP [Catalytic activity/Vol] 306 U/L High 39-130 [facility] Comment on above: Performed By: #### C MP #### [facility] ([id number]) [address], [address] [place] [address] #### 9622-2 #### [facility] ([id number]) [address] [place] [address] ALT [Catalytic activity/Vol] 28 U/L Normal 0-31 [facility] Comment on above: Performed By: #### C MP #### [facility] ([id number]) [address] [facility], [address] [place] [address] #### 9622-2 #### [facility] ([id number]) [address] [place] [address] Anion gap [Moles/Vol] 8 mmol/L Normal 5-15 [facility] Comment on above: Performed By: #### C MP #### [facility] ([id number]) [address] [facility], [address] [place] [address] #### 9622-2 #### [facility] ([id number]) [address] [place] [address] AST [Catalytic activity/Vol] 19 U/L Normal 0-41 [facility] Comment on above: Performed By: #### C MP #### [facility] ([id number]) [address] [place] [address] #### 9622-2 #### [facility] ([id number]) [address] [place] [address] Bilirubin [Mass/Vol] 0.5 mg/dL Normal 0.3-1.2 [facility] Comment on above: Performed By: #### C MP #### [facility] ([id number]) [address], [address] [place] [address] #### 9622-2 #### [facility] ([id number]) [address] [place] [address] Calcium [Mass/Vol] 9.3 mg/dL Normal 8.5-10.5 [facility] Comment on above: Performed By: #### C MP #### [facility] ([id number]) [address] [facility], [address] [place] [address] #### 9622-2 #### [facility] ([id number]) [address] [place] [address] Chloride [Moles/Vol] 103 mmol/L Normal 98-109 [facility] Comment on above: Performed By: #### C MP #### [facility] ([id number]) [address] [facility], [address] [place] [address] #### 9622-2 #### [facility] ([id number]) [address] [place] [address] CO2 [Moles/Vol] 28 mmol/L Normal 22-32 [facility] Comment on above: Performed By: #### C MP #### [facility] ([id number]) [address] [facility], [address] [place] [address] #### 9622-2 #### [facility] ([id number]) [address] [place] [address] Creatinine [Mass/Vol] 0.59 mg/dL Normal 0.40-1.00 [facility] Comment on above: Result Comment: METH OD TRACEABLE TO IDMS STANDARD Performed By: #### C MP #### [facility] ([id number]) [address] [facility], [address] [place] [address] #### 9622-2 #### [facility] ([id number]) [address] [place] [address] eGFR (CKD-EPI) NON-RACE DEPENDENT >90 Normal >59 [facility] Comment on above: Result Comment: Reported eGFR is based on the CKD-EPI 2020 equation that does not use a race coefficient. Performed By: #### C MP #### [facility] ([id number]) [address] [facility], [facility] [address] [place] [address] #### 9622-2 #### [facility] ([id number]) [address] [place] [address] Glucose [Mass/Vol] 75 mg/dL Normal 65-99 [facility] Comment on above: Performed By: #### C MP #### [facility] ([id number]) [address] [facility], [address] [address] #### 9622-2 #### [facility] ([id number]) [address] [place] [address] Potassium [Moles/Vol] 3.5 mmol/L Normal 3.5-5.0 [facility] Comment on above: Performed By: #### C MP #### [facility] ([id number]) [address] [address] #### 9622-2 #### [facility] ([id number]) [address] [place] [address] Protein [Mass/Vol] 7.2 g/dL Normal 6.0-8.0 [facility] Comment on above: Performed By: #### C MP #### [facility] ([id number]) [address] [address] #### 9622-2 #### [facility] ([id number]) [address] [place] [address] Sodium [Moles/Vol] 139 mmol/L Normal 134-146 [facility] Comment on above: Performed By: #### C MP #### [facility] ([id number]) [address] [place] [address], [address] [place] [address] #### 9622-2 #### [facility] ([id number]) [address] [place] [address] Urea nitrogen [Mass/Vol] 16 mg/dL Normal 5-23 [facility] Comment on above: Performed By: #### C MP #### [facility] ([id number]) [address] [place] [address] [address] [place] [address] #### 9622-2 #### [facility] ([id number]) [address] [place] [address] Phytonadione [Mass/Vol]on VITAMIN K1 0.17 nmol/L Low 0.22-4.88 [facility] Comment on above: Result Comment: NOTE Vitamin K concentrations in healthy individuals typically are greater than 0.22 nmol/L. Low vitamin K concentrations reflect low hepatic stores. Repeated specimen freezing and thawing and exposure to ultraviolet light may result in decreased values. INTERPRETIVE INFORMATION: Vitamin K1, Serum Vitamin K concentration is reported as nanomoles per liter (nmol/L). To convert concentration to nanograms per milliliter (ng/mL), multiply the result by 0.45. This test was developed and its performance characteristics determined by [facility]. It has not been cleared or approved by the [place] Food and Drug Administration. This test was performed in a CLIA certified laboratory and is intended for clinical purposes. Performed By: [facility] [address] [place] [address] Potash Flaker: Braden Jenkins MD, PhD CLIA Number: [id number] Performed By: #### C MP #### [facility] ([id number]) [address] [place] [address], [address] [place] [address] #### 9622-2 #### [facility] ([id number]) [address] [place] [address] Zinc [Mass/Vol]on 11-07-2023 ZINC 68 ug/dL Normal 60-120 [facility] Comment on above: Result Comment: NOTE This test was developed and its performance characteristics determined by [facility]'s Nima Lin [facility] Pathology and Laboratory Medicine [place] ([facility]). It has not been cleared or approved by the FDA. -[facility] is regulated under CLIA as qualified to perform high-complexity testing. This test is used for clinical purposes. It should not be regarded as investigational or for research. Test Performed By: [facility] [address] [place] [address] Potash Flaker: Enrique Tenorio III, M.D. [place] #[id number] Performed By: #### [phone] #### [facility] ([id number]) [address] [place] [address], [place] [address] POCT Influenza A/Influenza B /SARS-COV-2 Veritoron 10-13-2023 External Poct Influenza A Antigen Negative [facility] Comment on above: negative External Poct Influenza B Antigen Negative [facility] Comment on above: negative Interpretation and review of laboratory results Abnormal [facility] SARS-CoV-2 (COVID-19) Ag IA.rapid Ql (Resp) Positive [facility] Comment on above: positive [facility] Quick Strepon 11-02-2022 S. pyogenes Org specific cx Ql (Throat) Negative Appoet Other Urinalysis - AUTOMATEDon Appearance (U) Cloudy [place] [employer] Other Bilirubin Ql (U) Negative [employer] Other Color (U) Dark Yellow [employer] Other Glucose Ql (U) Negative [place] [employer] Other Hemoglobin Ql (U) Trace-intact [employer] Other Ketones Ql (U) Negative [place] [employer] Other Leukocyte esterase Test strip Ql (U) Moderate [employer] Other Nitrite Ql (U) Negative [place] [employer] Other pH (U) 6.5 [pH] [employer] Other Protein Ql (U) Negative [place] [employer] Other Specific gravity (U) [Rel density] 1.025 [employer] Other Urobilinogen (U) [Mass/Vol] 0.20 mg/dL [employer] Other Urinalysis - AUTOMATED [employer] Other Urine Cultureon 11-02-2022 Urine Culture >100,000 [employer] Other Urine Culture <16 Susceptible [place] [employer] Other Urine Culture <8/4 Susceptible [place] [employer] Other Urine Culture >16 Resistant [employer] Other Urine Culture <4 Susceptible [place] [employer] Other Urine Culture <2 Susceptible [place] [employer] Other Urine Culture <1 Susceptible [place] [employer] Other Urine Culture <0.25 Susceptible [place] [employer] Other Urine Culture <0.5 Susceptible [place] [employer] Other Urine Culture <32 Susceptible [place] [employer] Other Urine Culture >8 Resistant [employer] Other Urine Culture <0.5/9.5 Susceptible [place] [employer] Other Bacteria identified Cx Nom (U) Reason for Exam Dysuria Urine ORGANISM: Escherichia coli (O:ESCCOL) [place] Count >100,000 Aerobic LEI Charge (NMIC56) ----- SUSCEPTIBILITY ---- ORGANISM: O:ESCCOL ANTIBIOTIC INTERPRETATION LEI Amikacin S <16 Amoxacillin/K Clavulanate S <8 Ampicillin R >16 Ampicillin/Sulbactam I 1616/8 Aztreonam S <4 Cefazolin S <2 Cefepime S <2 Ceftazidime S <1 Ceftazidime/Avibacta m S <4 Ceftolozane/Tazobact am S <2 Ceftriaxone S <1 Cefuroxime S <4 Ciprofloxacin S <0.25 Ertapenem S <0.5 Gentamicin S <2 Levofloxacin S <0.5 Meropenem S <1 Meropenem/Vaborbacta m S <2 Nitrofurantoin S <32 Piperacillin/Tazobac stephens S <8 Tetracycline R >8 Tigecycline S <2 Tobramycin S <2 Trimethoprim/Sulfame thoxazole S <0.5 S = SUSCEPTIBLE I = INTERMEDIATE R = RESISTANT BLANK = DATA NOT AVAILABLE, OR DRUG NOT ADVISABLE OR TESTED R* = RESISTANCE DUE TO EXTENDED SPECTRUM BETA-LACTAMASES ESBL = EXTENDED SPECTRUM BETA-LACTAMASE TFG = THYMIDINE-DEPENDENT STRAIN KACEY = BETA-LACTAMASE POSITIVE IB = INDUCIBLE BETA-LACTAMASE. APPEARS IN PLACE OF 'S' WITH SPECIES KNOWN TO POSSESS INDUCIBLE BETA-LACTAMASES. POTENTIALLY THEY MAY BECOME RESISTANT TO ALL B-LACTAM DRUGS. PERFORMED BY: [place] [address] PATHOLOGIST PATCH MACHINE OPERATOR TOAN RODRIGUEZ M.D. [facility] Comment on above: Performed By: #### C UU #### [address] CULTURE, URINE, ROUTINEon CULTURE, URINE, ROUTINE SEE NOTE Abnormal [facility] Comment on above: Result Comment: CULTURE, URINE, ROUTINE Micro Number: [id number] Test Status: Final Specimen Source: Urine Specimen Quality: Adequate Result: Greater than 100,000 CFU/mL of Escherichia coli E.coli INT LEI AMOX/CLAVULANATE S <=2 AMPICILLIN S <=2 AMP/SULBACTAM S <=2 CEFAZOLIN NR <=4 2 CEFEPIME S <=1 CEFTRIAXONE S <=1 CIPROFLOXACIN S <=0.25 ERTAPENEM S <=0.5 GENTAMICIN S <=1 IMIPENEM S <=0.25 LEVOFLOXACIN S <=0.12 NITROFURANTOIN S <=16 PIP/TAZOBACTAM S <=4 TOBRAMYCIN S <=1 TRIMETHOPRIM/SULFA S <=20 S=Susceptible I=Intermediate R=Resistant * = Not Tested NR = Not Reported NN = See Therapy Comments THERAPY COMMENTS Note 1: For infections other than uncomplicated UTI caused by E. coli, K. pneumoniae or P. mirabilis: Cefazolin is resistant if LEI > or = 8 mcg/mL. (Distinguishing susceptible versus intermediate for isolates with LEI < or = 4 mcg/mL requires additional testing.) Note 2: For uncomplicated UTI caused by E. coli, K. pneumoniae or P. mirabilis: Cefazolin is susceptible if LEI <32 mcg/mL and predicts susceptible to the oral agents cefaclor, cefdinir, cefpodoxime, cefprozil, cefuroxime, cephalexin and loracarbef. Performed By: #### 3 95 #### [employer] [address], [address] [place] [address] Sustainability Analyst: Madan Louis MD CHLAMYDIA/N. GONORRHOEAE RNA , TMA, UROGENITALon 09-07-2021 CHLAMYDIA TRACHOMATIS RNA, TMA, UROGENITAL Not detected Normal NOT DETECTED [facility] Comment on above: Performed By: #### 3 95, [id number], [id number] #### [facility] [address], [address] [place] [address] Sustainability Analyst: Madan Louis MD COMMENT Normal [employer] Comment on above: Result Comment: The analytical performance characteristics of this assay, when used to test SurePath(TM) specimens have been determined by [employer]. The modifications have not been cleared or approved by the FDA. This assay has been validated pursuant to the CLIA regulations and is used for clinical purposes. For additional information, please refer to https://education.MobiVita.Moonshado/faq/SKD958 (This link is being provided for information/ educational purposes only.) Performed By: #### 3 , , [id number] #### [facility] [address] [place] [address], [address] [address] Sustainability Analyst: Madan Louis MD NEISSERIA GONORRHOEAE RNA, TMA, UROGENITAL Not detected Normal NOT DETECTED [facility] Comment on above: Performed By: #### 3 , , 70133 #### [facility] [address] [place] [address], [address] [address] Sustainability Analyst: Madan Louis MD CULTURE, URINE, ROUTINEon Bacteria identified Cx Nom (U) SEE NOTE Abnormal [facility] Comment on above: Result Comment: CULTURE, URINE, ROUTINE Micro Number: [id number] Test Status: Final Specimen Source: Urine Specimen Quality: Adequate Result: Greater than 100,000 CFU/mL of Escherichia coli E.coli INT LEI AMOX/CLAVULANATE S <=2 AMPICILLIN S <=2 AMP/SULBACTAM S <=2 CEFAZOLIN NR <=4 2 CEFEPIME S <=1 CEFTRIAXONE S <=1 CIPROFLOXACIN S <=0.25 ERTAPENEM S <=0.5 GENTAMICIN S <=1 IMIPENEM S <=0.25 LEVOFLOXACIN S <=0.12 NITROFURANTOIN S <=16 PIP/TAZOBACTAM S <=4 TOBRAMYCIN S <=1 TRIMETHOPRIM/SULFA S <=20 S=Susceptible I=Intermediate R=Resistant * = Not Tested NR = Not Reported NN = See Therapy Comments THERAPY COMMENTS Note 1: For infections other than uncomplicated UTI caused by E. coli, K. pneumoniae or P. mirabilis: Cefazolin is resistant if LEI > or = 8 mcg/mL. (Distinguishing susceptible versus intermediate for isolates with LEI < or = 4 mcg/mL requires additional testing.) Note 2: For uncomplicated UTI caused by E. coli, K. pneumoniae or P. mirabilis: Cefazolin is susceptible if LEI <32 mcg/mL and predicts susceptible to the oral agents cefaclor, cefdinir, cefpodoxime, cefprozil, cefuroxime, cephalexin and loracarbef. Performed By: #### 3 , , [id number] #### [facility] [address], [address] [place] [address] Sustainability Analyst: Madan Louis MD SURESWAB(R) TRICHOMONAS VAGI NALIS RNA, QL, TMAon 09-07-2021 SURESWAB(R) TRICHOMONAS VAGINALIS RNA, QL, TMA Not detected Normal NOT DETECTED [facility] Comment on above: Result Comment: For additional information, please refer to http://education.ScratchJr/ faq/Trichomonastma (This link is being provided for informational/ educational purposes only.) Performed By: #### 3 95, [id number], 12012 #### [facility] [address], [address] [place] [address] Sustainability Analyst: Madan Louis MD Urinalysis - AUTOMATEDon Appearance (U) cloudy [place] [employer] Other Bilirubin Ql (U) Negative [employer] Other Color (U) dark yellow [employer] Other Glucose Ql (U) Negative [place] [employer] Other Hemoglobin Ql (U) trace [employer] Other Ketones Ql (U) Negative [place] [employer] Other Leukocyte esterase Test strip Ql (U) moderate [employer] Other Nitrite Ql (U) Positive [place] [employer] Other pH (U) 6.0 [pH] [employer] Other Protein Ql (U) Negative [place] [employer] Other Specific gravity (U) [Rel density] 1.025 [employer] Other Urobilinogen (U) [Mass/Vol] 1.0 mg/dL [employer] Other Urinalysis - AUTOMATED [employer] Other LIPID PANEL, [facility] 10-1 Cholesterol [Mass/Vol] 149 mg/dL Normal <200 [facility] Comment on above: Order Comment: FASTI NG:YES FASTING: YES Performed By: #### 7 600 #### [facility] [address], [address] [place] [address] Sustainability Analyst: Madan Louis MD Cholesterol in HDL [Mass/Vol] 61 mg/dL Normal > OR = 50 [facility] Comment on above: Order Comment: FASTI NG:YES FASTING: YES Performed By: #### 7 600 #### [facility] [address], [address] [place] [address] Sustainability Analyst: Madan Louis MD Cholesterol in LDL [Mass/Vol] 72 mg/dL Normal [facility] Comment on above: Order Comment: FASTI NG:YES FASTING: YES Result Comment: Refe rence range: <100 Desirable range <100 mg/dL for primary prevention; <70 mg/dL for patients with CHD or diabetic patients with > or = 2 CHD risk factors. LDL-C is now calculated using the Poncho calculation, which is a validated novel method providing better accuracy than the Friedewald equation in the estimation of LDL-C. Giovanny SS et al. GLENDY. 2013;310(19): 3439-4787 (http://education.Asset Mapping/faq/POW330) Performed By: #### 7 600 #### [facility] [address], [address] [place] [address] Sustainability Analyst: Madan Louis MD Cholesterol.total/Ch olesterol in HDL [Mass ratio] 2.4 {ratio} Normal <5.0 [facility] Comment on above: Order Comment: FASTI NG:YES FASTING: YES Performed By: #### 7 600 #### [facility] [address], [address] [place], [place] [address] Sustainability Analyst: Madan Louis MD NON HDL CHOLESTEROL 88 mg/dL (calc) Normal <130 [facility] Comment on above: Order Comment: FASTI NG:YES FASTING: YES Result Comment: For patients with diabetes plus 1 major ASCVD risk factor, treating to a non-HDL-C goal of <100 mg/dL (LDL-C of <70 mg/dL) is considered a therapeutic option. Performed By: #### 7 600 #### [facility] [address] [facility], [address] [place] [address] Sustainability Analyst: Madan Louis MD Triglyceride [Mass/Vol] 82 mg/dL Normal <150 [facility] Comment on above: Order Comment: FASTI NG:YES FASTING: YES Performed By: #### 7 600 #### [facility] [address] [place] [address], [address] [place] [address] Sustainability Analyst: Madan Louis MD [id number] 2018 [id number]-3-Kcwrpsrthff, Serum 129 mg/dL Normal 101-187 [facility] Comment on above: Performed By: #### A LPHA-1 #### [facility] [address] [place] [address] [place] SURGICAL PATHOLOGYon 019 SURGICAL PATHOLOGY Specimen #: [id number] Submitting Physician: TOAN RODRIGUEZ M.D. 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 COMMENT Thank you for allowing us the opportunity to review this case in consultation representing Aruna Benz, a 48-year-old female with a provided clinical history of elevated liver enzymes, autoimmune hepatitis, and a family history of alpha-1 deficiency. The only laboratory data available for review is that of the patient's platelet count (232), PT (10.4), and INR (1.0). Histologic sections show a single intact core and multiple fragmented pieces of hepatic parenchyma. Some of the portal tracts are expanded by a patchy, dense inflammatory cell infiltrate composed of lymphocytes with occasional plasma cell, eosinophils, and histiocytes. Granulomas are identified within some portal tracts and are associated with bile duct injury in the form of classical florid duct lesions. There is also lymphocyte-mediated bile duct injury. There is no interlobular bile duct loss or bile ductular proliferation. There is no significant interface activity (no piecemeal necrosis ). There is no histologic evidence of cholestasis or cholate stasis. There is minimal lymphocyte-predomina nt lobular inflammation with rare associated acidophil bodies. Lobular granulomas are not identified. There is no macrovesicular steatosis or degenerating ballooned hepatocytes. Trichrome stain is negative for fibrosis. Iron stain is negative for iron deposition. Overall, the histologic findings are that of patchy chronic portal inflammation, lymphocyte-mediated bile duct injury, and florid duct lesions. 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 There is no histologic evidence suggestive of autoimmune hepatitis (e.g. plasma cell rich inflammatory infiltrate, significant interface activity, significant lobular/centrizonal inflammation, emperipolesis, rosettes, advanced fibrosis); however, such diagnostic features can dissipate with therapy. As you know, PBC is a clinicopathologic entity that requires at least two of the three following criteria for diagnosis: alkaline phosphatase at least 1.5x normal, AMA titer positivity of >1:40, histologic evidence of PBC. Correlation with clinical, serologic (e.g. liver function tests, viral hepatitis panel, autoantibody panel including AMA, GGT, serum IgG, alpha-1 antitrypsin, etc.), and radiologic data is certainly necessary to establish a diagnosis of PBC. That said, it would be prudent to clinically exclude the possibility of other causes of granulomatous inflammation and bile duct damage, including drug-induced liver injury, sarcoidosis, and infection. Regarding the family history of alpha-1 antitrypsin deficiency, performance of a PAS/D special stain would certainly be of utility in excluding the presence of diagnostic intracytoplasmic inclusions. None are seen on routine CORNELIUS-stained slides. Thank you for sending this case in consultation. Please do not hesitate to contact the GI Consultation Service at [phone] with questions or if additional follow up information becomes available. This case was reviewed in conjunction with the GI pathology fellow, Lesley Frost M.D. GRACE/RUBINA// 9 Brittni Zaman M.D. (Electronic Signature) SPECIMEN SUBMITTED A: 6 SLIDEES [id number] CLINICAL DATA Elevated liver enzymes, autoimmune hepatitis, family history of alpha-1 deficiency. Patient ID #: Date of Report: 07/23/2019 Date of Procedure: 07/22/2019 Date of Receipt: 07/22/2019 Submitted by: TOAN RODRIGUEZ M.D. Location: Diagnostic interpretation performed at [facility], [address] [place] [address]. CLIA Number: [id number] Normal [facility] Comment on above: Performed By: #### S #### See report for performing lab information. LAUREN by IFAon 06-22-2019 Antinuclear Antibodies, IFA Positive Abnormal [facility] Comment on above: Result Comment: Nega tive <1:80 Borderline 1:80 Positive >1:80 Performed By: #### A NAIFA #### [facility] [address] [address] [place] Centriole Pattern Normal [facility] Comment on above: Performed By: #### A NAIFA #### [facility] [address] [address] [place] Centromere Pattern Normal [facility] Comment on above: Performed By: #### A NAIFA #### [facility] [address] [address] [place] Homogeneous Pattern Normal [facility] Comment on above: Performed By: #### A NAIFA #### [facility] [address] [address] [place] Midbody Pattern Normal [facility] Comment on above: Performed By: #### A CHAZ #### [facility] [address] [place] [address] Dalton Quijano Note: Comment Normal [facility] Comment on above: Result Comment: A po sitive LAUREN result may occur in healthy individuals (low titer) or be associated with a variety of diseases. See interpretation chart which is not all inclusive: . Pattern Antigen Detected Suggested Disease Association Homogeneous DNA(ds,ss), SLE - High titers Nucleosomes, Histones Drug-induced SLE Speckled Sm, RETAIL EVENT AND SALES ASSISTANT, SCL-70, SLE,MCTD,PSS (diffuse form), SS-A/SS-B Sjogrens Nucleolar SCL-70, PM-1/SCL High titers Scleroderma, PM/DM Centromere Centromere PSS (limited form) w/Crest syndrome variable Nuclear Dot [id number] Primary Biliary Cirrhosis Nuclear GP210, Primary Biliary Cirrhosis Membrane cynthia A,B,C Performed By: #### A NAIFA #### [facility] [address] [address] [place] Nuclear Dot Pattern Normal [facility] Comment on above: Performed By: #### A NAIFA #### [facility] [address] [address] [place] Nuclear Membrane Pattern 1:640 Critically high [facility] Comment on above: Performed By: #### A NAIFA #### [facility] [address] [address] [place] Nucleolar Pattern Normal [facility] Comment on above: Performed By: #### A NAIFA #### [facility] [address] [address] [place] PCNA Pattern Normal [facility] Comment on above: Performed By: #### A NAIFA #### [facility] [address] [address] [place] Speckled Pattern 1:640 Critically high [facility] Comment on above: Performed By: #### A NAIFA #### [facility] [address] [address] [place] Spindle Apparatus Pattern Normal [facility] Comment on above: Performed By: #### A NAIFA #### [facility] [address] [place] [address] [place] Quijano [id number] 2018 [id number]-8-Isfbiwdkwia, Serum 124 mg/dL Normal 90-200 [facility] Comment on above: Result Comment: Ef fective July 01, 2019 Kozfv-1-Jrfaboziiae, Serum reference interval will be changing to: Age Male Female 0 - 7 days 102 - 186 102 - 186 8 days - 30 days 73 - 187 73 - 187 31 days - 5 years 86 - 173 86 - 173 6 years - 12 years 99 - 156 99 - 156 13 years - 40 years 95 - 164 100 - 188 >40 years 101 - 187 101 - 187 Performed By: #### A LPHA-1 #### [facility] [address] [place] [address] [place] Quijano CERUOPLASMINon 06-21-2019 Ceruloplasmin 28.8 mg/dL Normal 19.0-39.0 [facility] Comment on above: Performed By: #### C EUROPL #### [facility] [address] [place] [address] [place] Quijano HEP B SURFACE ANTIGEN SCREEN on 06-21-2019 HBsAg Screen Negative Normal Negative [facility] Comment on above: Performed By: #### H BSANS #### [facility] [address] [place] [address] [place] Quijano HEPATITIS C VIRUS AB W/ REFL EX QUANTon 06-21-2019 HCV AB 0.1 s/co ratio Normal 0.0-0.9 [facility] Comment on above: Performed By: #### H CVPCRR #### [facility] [address] [place] [address] [place] Quijano Interpretation: Comment Normal [facility] Comment on above: Result Comment: Nega tive Not infected with HCV, unless recent infection is suspected or other evidence exists to indicate HCV infection. Performed By: #### H CVPCRR #### [facility] [address] [place] [address] [place] Quijano MITICHONDRIAL (M2) ANTIBODYo n 06-21-2019 Mitochondrial (M2) Antibody <20.0 Normal 0.0-20.[address] [facility] Comment on above: Result Comment: Nega tive 0.0 - 20.0 Equivocal 20.1 - 24.9 Positive >24.9 . Mitochondrial (M2) Antibodies are found in 90-96% of patients with primary biliary cirrhosis. Performed By: #### M ITOCAB #### [facility] [address] [place] [address] [place]ie CBC AUTO DIFFon 06-20-2019 Basophils (Bld) [#/Vol] 0.0 103/ul Normal 0.0-0.1 [facility] Comment on above: Performed By: #### C BC #### [facility] [address] [place], [place] [id number] [place] Basophils/100 WBC (Bld) 0.8 % Normal 0.2-2.[address] [facility] Comment on above: Performed By: #### C BC #### [facility] [address] [place] [address] [place] Eosinophils (Bld) [#/Vol] 0.3 103/ul Normal 0.0-0.[address] [facility] Comment on above: Performed By: #### C BC #### [facility] [address] [place] [address] [place] Eosinophils/100 WBC (Bld) 6.7 % Normal 0.9-7.0 [facility] Comment on above: Performed By: #### C BC #### [facility] [address] [place] [address] [place] Erythrocyte distribution width (RBC) [Ratio] 12.6 % Normal 11.0-15.0 [facility] Comment on above: Performed By: #### C BC #### [facility] [address] [place] [address] [place]ie Hematocrit (Bld) [Volume fraction] 47.0 % Normal 36.0-48.[address] [facility] Comment on above: Performed By: #### C BC #### [facility] [address] [place] [address] [place] Hemoglobin (Bld) [Mass/Vol] 15.4 g/dL Normal 12.0-16.[address] [facility] Comment on above: Performed By: #### C BC #### [facility] [address] [place] [address] [place] Macie IG # 0.03 10e3/ul Normal 0.00-0.[address] [facility] Comment on above: Performed By: #### C BC #### [facility] [address] [place], [place] [address] [place]ie IG % 0.6 % Critically high 0.0-0.5 [facility] Comment on above: Performed By: #### C BC #### [facility] [address] [place], [place] [id number] [place] Lymphocytes (Bld) [#/Vol] 1.7 103/ul Normal 1.2-3.[address] [facility] Comment on above: Performed By: #### C BC #### [facility] [address] [place], [place] [address] [place] Lymphocytes/100 WBC (Bld) 34.6 % Normal 20.5-60.[address] [facility] Comment on above: Performed By: #### C BC #### [facility] [address] [place], [place] [id number] [place] MANUAL DIFF REQ NO Normal [facility] Comment on above: Performed By: #### C BC #### [facility] [address] [place], [place] [id number] [place] MCH (RBC) [Entitic mass] 31.5 pg Normal 26.7-34.0 [facility] Comment on above: Performed By: #### C BC #### [facility] [address] [place], [place] [id number] [place] MCHC (RBC) [Mass/Vol] 32.8 g/dL Normal 29.9-35.[address] [facility] Comment on above: Performed By: #### C BC #### [facility] [address] [place], [place] [id number] [place] MCV (RBC) [Entitic vol] 96.1 fL Normal 81.0-99.[address] [facility] Comment on above: Performed By: #### C BC #### [facility] [address] [place], [place] [address] [place] Monocytes (Bld) [#/Vol] 0.6 103/ul Normal 0.3-0.[address] [facility] Comment on above: Performed By: #### C BC #### [facility] [address] [place], [place] [address] [place] Monocytes/100 WBC (Bld) 12.1 % Critically high 1.7-12.[address] [facility] Comment on above: Performed By: #### C BC #### [facility] [address] [place], [place] [address] [place]ie Neutrophils (Bld) [#/Vol] 2.2 103/ul Normal 1.4-6.5 [facility] Comment on above: Performed By: #### C BC #### [facility] [address] [place], [place] [address] [place] Neutrophils/100 WBC (Bld) 45.2 % Normal 43.0-75.0 [facility] Comment on above: Performed By: #### C BC #### [facility] [address] [place], [place] [address] Dalton Macie Platelet mean volume (Bld) [Entitic vol] 9.5 fL Normal 9.5-13.5 [facility] Comment on above: Performed By: #### C BC #### [facility] [address] [place], [place] [address] Dalton Macie Platelets (Bld) [#/Vol] 237 103/ul Normal 150-450 [facility] Comment on above: Performed By: #### C BC #### [facility] [address] [place], [place] [address] Dalton Macie RBC (Bld) [#/Vol] 4.89 106/ul Normal 4.20-5.40 [facility] Comment on above: Performed By: #### C BC #### [facility] [address] [place], [place] [address] Dalton Macie WBC (Bld) [#/Vol] 4.8 103/ul Normal 4.0-11.0 [facility] Comment on above: Performed By: #### C BC #### [facility] [address] [place], [place] [address] Dalton Macie MRI ABDOMEN WO CONon 019 MRI ABDOMEN WO CON Patient: ARUNA BENZ Sarah Exam Date: 06/20/2019 : 1970 Gender:F Ordering : DR GIOVANNY HINSON M.D. Admission #: [id number] Family : Order #: [id number] CLICK HERE TO VIEW EXAM RADIOLOGY REPORT PROCEDURE: MRI ABDOMEN WITHOUT CONTRAST COMPARISON: CT ABD/PELVIS W CON, 03/06/2019. INDICATIONS: High enzyme level in serum with chronic pain TECHNIQUE: MRCP was performed without contrast for evaluation of the common bile duct and pancreatic duct. FINDINGS: GALLBLADDER: Cholecystectomy BILE DUCTS: No stricture, abnormal dilation, or filling defect. PANCREAS: No stricture, abnormal dilation, fluid collection, mass, or accessory duct. OTHER: Negative. CONCLUSION: 1. No intra or extrahepatic biliary dilation, stenosis or occlusion Dictated by: Ramiro Irizarry M.D. on 06/20/2019 at 11:11 Approved by: Ramiro Irizarry M.D. on 06/20/2019 at 11:[address] [facility] PROF 14(COMP METB)on 06-20- 019 Albumin [Mass/Vol] 3.7 g/dL Normal 3.5-5.0 [facility] Comment on above: Performed By: #### C MP #### [facility] [address] [place], [place] [id number] Dalton Macie Albumin/Globulin [Mass ratio] 0.9 {ratio} Normal [facility] Comment on above: Performed By: #### C MP #### [facility] [address] [place] [address] Dalton Macie ALP [Catalytic activity/Vol] 489 U/L Critically high 38-126 [facility] Comment on above: Performed By: #### C MP #### [facility] [address] [place], [place] [id number] Dalton Macie ALT [Catalytic activity/Vol] 99 U/L Critically high 9-52 [facility] Comment on above: Performed By: #### C MP #### [facility] [address] [place], [place] [id number] [place] Macie Anion gap [Moles/Vol] 9.5 mmol/L Normal [facility] Comment on above: Performed By: #### C MP #### [facility] [address] [place] [address] Dalton Macie AST [Catalytic activity/Vol] 80 U/L Critically high 14-36 [facility] Comment on above: Performed By: #### C MP #### [facility] [address] [place] [address] [place] Macie Bilirubin Ql (U) 1.1 mg/dL Normal 0.2-1.3 [facility] Comment on above: Performed By: #### C MP #### [facility] [address] [place] [address] Dalton Macie Calcium [Mass/Vol] 9.3 mg/dL Normal 8.4-10.2 [facility] Comment on above: Performed By: #### C MP #### [facility] [address] [place] [address] Dalton Macie Chloride [Moles/Vol] 103 mmol/L Normal 98-107 [facility] Comment on above: Performed By: #### C MP #### [facility] [address] [place] [address] Dalton Macie CO2 [Moles/Vol] 31.2 mmol/L Critically high 22.0-30.0 [facility] Comment on above: Performed By: #### C MP #### [facility] [address] [place] [address] Dalton Macie Creatinine [Mass/Vol] 0.63 mg/dL Normal 0.52-1.04 [facility] Comment on above: Performed By: #### C MP #### [facility] [address] [place] [address] Dalton Macie EGFR-AF [place] ISLANDER >60 Normal >=60 [facility] Comment on above: Performed By: #### C MP #### [facility] [address] [place], [place] [id number] [place] Macie EGFR-NON AF [place] ISLANDER >60 Normal >=[address] [facility] Comment on above: Performed By: #### C MP #### [facility] [address] [place] [address] Dalton Macie Globulin (S) [Mass/Vol] 4.2 g/dL Normal [facility] Comment on above: Performed By: #### C MP #### [facility] [address] [place], [place] [address] Dalton Macie Glucose [Mass/Vol] 82 mg/dL Normal 74-106 [facility] Comment on above: Performed By: #### C MP #### [facility] [address] [place], [place] [address] Dalton Macie Potassium [Moles/Vol] 3.7 mmol/L Normal 3.4-5.0 [facility] Comment on above: Performed By: #### C MP #### [facility] [address] [place], [place] [address] [place] Macie Protein [Mass/Vol] 7.9 g/dL Normal 6.1-8.2 [facility] Comment on above: Performed By: #### C MP #### [facility] [address] [place], [place] [address] Dalton Macie Sodium [Moles/Vol] 140 mmol/L Normal 137-145 [facility] Comment on above: Performed By: #### C MP #### [facility] [address] [place], [place] [address] [place] Macie Urea nitrogen [Mass/Vol] 12.0 mg/dL Normal 7.0-17.0 [facility] Comment on above: Performed By: #### C MP #### [facility] [address] [place], [place] [address] Dalton Macie Urea nitrogen/Creatinine [Mass ratio] 19.0 mg/mg Normal [facility] Comment on above: Performed By: #### C MP #### [facility] [address] [place], [place] [address] Dalton Macie Vital Signs Date Time Vital Sign Value Performing Clinician Facility 09-17-2024 13:47-0500 Body height 177.8 cm Trae Gann MD Work Phone: [facility] 09-17-2024 13:47-0500 Body mass index (BMI) [Ratio] 25.4 kg/m2 Trae Gann MD Work Phone: [facility] 09-17-2024 13:47-0500 Body weight 80.29 kg Trae Gann MD Work Phone: [facility] 09-17-2024 13:47-0500 Diastolic blood pressure 66 mm[Hg] Trae Gann MD Work Phone: [facility] 09-17-2024 13:47-0500 Heart rate 108 /min Trae Gann MD Work Phone: [facility] 09-17-2024 13:47-0500 Systolic blood pressure 83 mm[Hg] Trae Gann MD Work Phone: [facility] 09-12-2024 16:13-0500 Body height 177.8 cm Jenny Oksana DPM Work Phone: [facility] 09-12-2024 16:13-0500 Body mass index (BMI) [Ratio] 24.54 kg/m2 Jenny Oksana DPM Work Phone: [facility] 09-12-2024 16:13-0500 Body weight 77.56 kg Jenny Oksana DPM Work Phone: [facility] 08-23-2024 10:02-0500 Body height 177.8 cm Jose Lisa DUTY MANAGER-RUBBER CUTTER Work Phone: [facility] 08-23-2024 10:02-0500 Body mass index (BMI) [Ratio] 25.22 kg/m2 Jose Lisa DUTY MANAGER-RUBBER CUTTER Work Phone: [facility] 08-23-2024 10:02-0500 Body temperature 98.2 [degF] Jose Lisa DUTY MANAGER-RUBBER CUTTER Work Phone: [facility] 08-23-2024 10:02-0500 Body weight 79.74 kg Jose Lisa DUTY MANAGER-RUBBER CUTTER Work Phone: [facility] 08-23-2024 10:02-0500 Diastolic blood pressure 58 mm[Hg] Jose Lisa DUTY MANAGER-RUBBER CUTTER Work Phone: [facility] 08-23-2024 10:02-0500 Heart rate 93 /min Jose GARCIA Work Phone: [facility] 08-23-2024 10:02-0500 Respiratory rate 18 /min Jose GARCIA Work Phone: [facility] [employer] 08-23-2024 10:02-0500 SaO2% (BldA) [Mass fraction] 96 % Jose GARCIA Work Phone: [facility] 08-23-2024 10:02-0500 Systolic blood pressure 90 mm[Hg] Jose GARCIA Work Phone: [facility] 06-24-2024 13:47-0400 Body height 177.8 cm Raul [email or web address] DO Work Phone: [facility] [employer] 06-24-2024 13:47-0400 Body mass index (BMI) [Ratio] 25.31 kg/m2 Raul Castanedalong DO Work Phone: [facility] [employer] 06-24-2024 13:47-0400 Body temperature 98.01 [degF] Raul Castanedalong DO Work Phone: [facility] 06-24-2024 13:47-0400 Body weight 80.02 kg Raul Castanedalong DO Work Phone: [facility] 06-24-2024 13:47-0400 Diastolic blood pressure 62 mm[Hg] Raul Castanedalong DO Work Phone: [facility] 06-24-2024 13:47-0400 Heart rate 90 /min Raul Leonellong DO Work Phone: [facility] 06-24-2024 13:47-0400 SaO2% (BldA) [Mass fraction] 93 % RaulCoco Communicationslong DO Work Phone: [facility] 06-24-2024 13:47-0400 Systolic blood pressure 120 mm[Hg] Raul Christianson DO Work Phone: [facility] 06-06-2024 15:16-0400 Body height 177.8 cm Jenny Gandhi DPM Work Phone: [facility] 06-06-2024 15:16-0400 Body mass index (BMI) [Ratio] 24.54 kg/m2 Jenny Gandhi DPM Work Phone: [facility] 06-06-2024 15:16-0400 Body weight 77.56 kg Jenny Gandhi DPM Work Phone: [facility] 04-25-2024 15:49-0400 Body height 177.8 cm Jenny Gandhi DPM Work Phone: [facility] 04-25-2024 15:49-0400 Body mass index (BMI) [Ratio] 24.54 kg/m2 Jenny Gandhi DPM Work Phone: [facility] 04-25-2024 15:49-0400 Body weight 77.56 kg Jenny Gandhi DPM Work Phone: [facility] 10-13-2023 10:53-0500 Body height 177.8 cm Lisette Nova DUTY MANAGER-MACHINE TANK OPERATOR Work Phone: [facility] 10-13-2023 10:53-0500 Body mass index (BMI) [Ratio] 26.43 kg/m2 Lisette Nova DUTY MANAGER-MACHINE TANK OPERATOR Work Phone: [facility] 10-13-2023 10:53-0500 Body temperature 99.5 [degF] Lisette Nova DUTY MANAGER-MACHINE TANK OPERATOR Work Phone: [facility] 10-13-2023 10:53-0500 Body weight 83.55 kg Lisette Nova DUTY MANAGER-MACHINE TANK OPERATOR Work Phone: [facility] 10-13-2023 10:53-0500 Diastolic blood pressure 58 mm[Hg] Lisette Nova DUTY MANAGER-MACHINE TANK OPERATOR Work Phone: [facility] 10-13-2023 10:53-0500 SaO2% (BldA) [Mass fraction] 96 % Lisette Nova APRN-MACHINE TANK OPERATOR Work Phone: [facility] 10-13-2023 10:53-0500 Systolic blood pressure 112 mm[Hg] Lisette Nova APRN-MACHINE TANK OPERATOR Work Phone: [facility] 10-06-2023 09:35-0500 Body height 177.8 cm Lisette Nova DUTY MANAGER-MACHINE TANK OPERATOR Work Phone: [facility] 10-06-2023 09:35-0500 Body mass index (BMI) [Ratio] 26.46 kg/m2 Lisette Nova APRN-MACHINE TANK OPERATOR Work Phone: [facility] 10-06-2023 09:35-0500 Body temperature 98.8 [degF] Lisette Nova APRN-MACHINE TANK OPERATOR Work Phone: [facility] 10-06-2023 09:35-0500 Body weight 83.64 kg Lisette Nova APRN-MACHINE TANK OPERATOR Work Phone: [facility] 10-06-2023 09:35-0500 Diastolic blood pressure 60 mm[Hg] Lisette Nova APRN-MACHINE TANK OPERATOR Work Phone: [facility] 10-06-2023 09:35-0500 Heart rate 83 /min Lisette Nova APRN-MACHINE TANK OPERATOR Work Phone: [facility] 10-06-2023 09:35-0500 SaO2% (BldA) [Mass fraction] 95 % Lisette Nova APRN-MACHINE TANK OPERATOR Work Phone: [facility] 10-06-2023 09:35-0500 Systolic blood pressure 118 mm[Hg] Lisette Nova APRN-MACHINE TANK OPERATOR Work Phone: [facility] 09-11-2023 15:48-0500 Body mass index (BMI) [Ratio] 25.74 kg/m2 Lisette Nova DUTY MANAGER-MACHINE TANK OPERATOR Work Phone: [facility] 09-11-2023 15:48-0500 Body temperature 98.4 [degF] Lisette Nova APRN-MACHINE TANK OPERATOR Work Phone: [facility] 09-11-2023 15:48-0500 Body weight 81.38 kg Lisette Nova APRN-MACHINE TANK OPERATOR Work Phone: [facility] 09-11-2023 15:48-0500 Diastolic blood pressure 68 mm[Hg] Lisette Nova APRN-MACHINE TANK OPERATOR Work Phone: [facility] 09-11-2023 15:48-0500 Heart rate 112 /min Lisette EMERSONMACHINE TANK OPERATOR Work Phone: [facility] 09-11-2023 15:48-0500 SaO2% (BldA) [Mass fraction] 95 % Lisette Nova APRN-MACHINE TANK OPERATOR Work Phone: [facility] 09-11-2023 15:48-0500 Systolic blood pressure 104 mm[Hg] Lisette Nova APRN-MACHINE TANK OPERATOR Work Phone: [facility] 09-01-2023 13:49-0500 Body height 177.8 cm Jose Painter DUTY MANAGER-RUBBER CUTTER Work Phone: [facility] 09-01-2023 13:49-0500 Body mass index (BMI) [Ratio] 26.11 kg/m2 Jose Painter DUTY MANAGER-RUBBER CUTTER Work Phone: [facility] 09-01-2023 13:49-0500 Body temperature 98.71 [degF] Jose Painter DUTY MANAGER-RUBBER CUTTER Work Phone: [facility] 09-01-2023 13:49-0500 Body weight 82.56 kg Jose Painter DUTY MANAGER-RUBBER CUTTER Work Phone: [facility] 09-01-2023 13:49-0500 Diastolic blood pressure 72 mm[Hg] Jose Painter APRN-RUBBER CUTTER Work Phone: [employer] 09-01-2023 13:49-0500 Heart rate 94 /min Jose Painter APRN-RUBBER CUTTER [facility] 09-01-2023 13:49-0500 SaO2% (BldA) [Mass fraction] 96 % Jose Painter APRN-RUBBER CUTTER Work Phone: [employer] 09-01-2023 13:49-0500 Systolic blood pressure 118 mm[Hg] Jose Painter APRN-RUBBER CUTTER Work Phone: [employer] 05-24-2023 13:15-0400 Body height 177.8 cm Lance Nogueira Other [employer] Other 05-24-2023 13:15-0400 Body mass index (BMI) [Ratio] 23.67 kg/m2 Lance Nogueira Other [employer] Other 05-24-2023 13:15-0400 Body weight 74.84 kg Lance Nogueira Other [employer] Other 05-24-2023 13:15-0400 Diastolic blood pressure 67 mm[Hg] Lance Nogueira Other [employer] Other 05-24-2023 13:15-0400 Systolic blood pressure 101 mm[Hg] Lance Nogueira Other [employer] Other 03-01-2023 10:10-0400 Body height 177.8 cm Oly Ruff Other [employer] Other 03-01-2023 10:10-0400 Body mass index (BMI) [Ratio] 23.53 kg/m2 Oly Ruff Other [employer] Other 03-01-2023 10:10-0400 Body temperature 97.1 [degF] Oly Ruff Other [employer] Other 03-01-2023 10:10-0400 Body weight 74.39 kg Oly Ruff Other [employer] Other 03-01-2023 10:10-0400 Diastolic blood pressure 74 mm[Hg] Oly Coynemond Other [employer] Other 03-01-2023 10:10-0400 Respiratory rate 18 /min Oly Ruff Other [employer] Other 03-01-2023 10:10-0400 SaO2% (BldA) [Mass fraction] 97 % Oly Ruff Other [employer] Other 03-01-2023 10:10-0400 Systolic blood pressure 113 mm[Hg] Oly Ruff Other [employer] Other 11-02-2022 09:20-0500 Body height 172.72 cm Brandy David Other [employer] Other 11-02-2022 09:20-0500 Body mass index (BMI) [Ratio] 27.21 kg/m2 Brandy David Other [employer] Other 11-02-2022 09:20-0500 Body temperature 98.2 [degF] Brandy David Other [employer] Other 11-02-2022 09:20-0500 Body weight 81.19 kg Brandy Hernandez Other [employer] Other 11-02-2022 09:20-0500 Respiratory rate 18 /min Brandy Hernandez Other [employer] Other 11-02-2022 09:20-0500 SaO2% (BldA) [Mass fraction] 99 % Brandy Hernandez Other [employer] Other 10-05-2022 10:10-0500 Body height 172.72 cm Oly Ruff Other [employer] Other 10-05-2022 10:10-0500 Body mass index (BMI) [Ratio] 26.61 kg/m2 Oly Coynemond Other [employer] Other 10-05-2022 10:10-0500 Body temperature 98.2 [degF] Oly Coynemond Other [employer] Other 10-05-2022 10:10-0500 Body weight 79.38 kg Oly Ruff Other [employer] Other 10-05-2022 10:10-0500 Respiratory rate 18 /min Oly Coynemond Other [employer] Other 10-05-2022 10:10-0500 SaO2% (BldA) [Mass fraction] 99 % Oly Elzbieta Other [employer] Other 12-22-2021 12:55-0400 Body height 172.72 cm Oly Coynemond Other [employer] Other 12-22-2021 12:55-0400 Body mass index (BMI) [Ratio] 27.52 kg/m2 Oly Coynemond Other [employer] Other 12-22-2021 12:55-0400 Body temperature 98 [degF] Oly Elzbieta Other [employer] Other 12-22-2021 12:55-0400 Body weight 82.1 kg Oly Elzbieta Other [employer] Other 12-22-2021 12:55-0400 Diastolic blood pressure 58 mm[Hg] Oly Elzbieta Other [employer] Other 12-22-2021 12:55-0400 Respiratory rate 18 /min Oly Coynemond Other [employer] Other 12-22-2021 12:55-0400 SaO2% (BldA) [Mass fraction] 98 % Oly Ruff Other [employer] Other 12-22-2021 12:55-0400 Systolic blood pressure 95 mm[Hg] Oly Ruff Other [employer] Other 11-30-2021 11:30-0400 Body height 172.72 cm Lance Ditty Other [employer] Other 11-30-2021 11:30-0400 Body mass index (BMI) [Ratio] 27.37 kg/m2 Lance Nogueira Other [employer] Other 11-30-2021 11:30-0400 Body weight 81.65 kg Lance Nogueira Other [employer] Other 06-28-2021 19:00-0400 Body height 172.72 cm Brandy Hernandez Other [employer] Other 06-28-2021 19:00-0400 Body mass index (BMI) [Ratio] 27.06 kg/m2 Brandy Hernandez Other [employer] Other 06-28-2021 19:00-0400 Body weight 80.74 kg Brandy Hernandez Other [employer] Other 06-28-2021 19:00-0400 Diastolic blood pressure 75 mm[Hg] Brandy Hernandez Other [employer] Other 06-28-2021 19:00-0400 Respiratory rate 18 /min Brandy Hernandez Other [employer] Other 06-28-2021 19:00-0400 SaO2% (BldA) [Mass fraction] 99 % Brandy Hernandez Other [employer] Other 06-28-2021 19:00-0400 Systolic blood pressure 119 mm[Hg] Brandy Hernandez Other [employer] Other Encounters Encounter Date Encounter Type Care Provider Facility Start: 10-16-2024 End: 10-16-2024 Bamboo flowsheet Karissa Kitchen CCC-A Work Phone: [facility] Start: 10-16-2024 End: 10-16-2024 Bamboo flowsheet Karissa Kitchen CCC-A Work Phone: [facility] Start: 10-16-2024 End: 10-16-2024 Clinical Support Karissa Kitchen CCC-A Work Phone: [facility] Comment on above: 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 (Primary Dx); Eustachian tube dysfunction, bilateral Start: 10-15-2024 End: 10-15-2024 Clinisync Result Encounter Trae Gann MD Work Phone: [facility] Unsolicited Start: 10-15-2024 End: 10-15-2024 Clinisync Result Encounter Trae Gann MD Work Phone: [facility] Unsolicited Start: 10-11-2024 End: 10-12-2024 Clinisync Result Encounter Trae Gann MD Work Phone: [facility] Unsolicited Start: 10-11-2024 End: 10-12-2024 Clinisync Result Encounter Trae Gann MD Work Phone: [facility] Unsolicited Start: 10-04-2024 End: 10-04-2024 Telephone encounter Trae Gann MD Work Phone: [facility] Comment on above: having ear infection now Start: 10-01-2024 End: 10-01-2024 Orders Only Raul G Sammy DO Work Phone: [facility] Comment on above: Degeneration of inte 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 (Primary Dx) Start: 09-17-2024 End: 09-17-2024 Bamboo flowsheet Trae Gann MD Work Phone: [facility] Start: 09-17-2024 End: 09-17-2024 Bamboo flowsheet Trae Gann MD Work Phone: [facility] Start: 09-17-2024 End: 09-17-2024 Office outpatient new 45 minutes Trae Gann MD Work Phone: [facility] Comment on above: ETD (Eustachian tube dysfunction), right (Primary Dx); 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 Start: 09-17-2024 End: 09-17-2024 ambulatory TRAE GANN Not Available Start: 09-12-2024 End: 09-12-2024 ambulatory JENNY GANDHI Not Available Start: 09-12-2024 End: 09-12-2024 Patient encounter procedure Jenny Gandhi DPM Work Phone: [facility] Comment on above: Callus (Primary Dx); Porokeratosis; Acquired keratoderma; Pain in both feet Start: 09-12-2024 End: 09-12-2024 Bamboo flowsheet Jenny Gandhi DPM Work Phone: [facility] Start: 09-12-2024 End: 09-12-2024 Bamboo flowsheet Jenny Gandhi DPM Work Phone: [facility] Start: 08-26-2024 End: 08-29-2024 Refill Thais Elie [facility] Comment on above: Degeneration of lumb ar intervertebral disc Start: 08-23-2024 End: 08-23-2024 ambulatory [facility] Start: 08-23-2024 End: 08-23-2024 Office outpatient visit 15 minutes [facility] DUTY MANAGER-RUBBER CUTTER Work Phone: [facility] Comment on above: Eustachian tube dysf unction, right (Primary Dx); Fluid collection of middle ear Start: 07-25-2024 End: 07-26-2024 Refill Rebecca Forrider [facility] Comment on above: Degeneration of lumb ar intervertebral disc Start: 07-17-2024 End: 07-17-2024 Evaluation and management of inpatient [facility] Start: 06-24-2024 End: 06-24-2024 Office outpatient visit 15 minutes Raul Christianson DO Work Phone: [facility] Comment on above: Degeneration of inte 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 (Primary Dx); Overweight Start: 06-24-2024 End: 06-24-2024 ambulatory RAUL CHRISTIANSON [facility] Start: 06-18-2024 End: 06-20-2024 Refill Rebecca Hernandez CMA [facility] Comment on above: Degeneration of lumb ar intervertebral disc Start: 06-17-2024 End: 06-17-2024 Orders Only Raul Christianson DO Work Phone: [facility] Comment on above: Abnormal findings in stool (Primary Dx) Start: 06-06-2024 End: 06-06-2024 ambulatory JENNY GANDHI Not Available Start: 06-06-2024 End: 06-06-2024 Office outpatient visit 15 minutes Jenny Gandhi DPM Work Phone: [facility] Comment on above: Callus (Primary Dx); Porokeratosis; Acquired keratoderma; Pain in both feet; Metatarsalgia of both feet Start: 06-06-2024 End: 06-06-2024 Bamboo flowsheet Jenny Gandhi DPM Work Phone: [facility] Start: 06-06-2024 End: 06-06-2024 Bamboo flowsheet Jenny Gandhi DPM Work Phone: [facility] Start: 04-25-2024 End: 04-25-2024 Patient encounter procedure Jenny Gandhi DPM Work Phone: [facility] Comment on above: Callus (Primary Dx); Porokeratosis; Acquired keratoderma; Pain in both feet Start: 04-25-2024 End: 04-25-2024 ambulatory JENNY GANDHI Not Available Start: 04-25-2024 End: 04-25-2024 Bamboo flowsheet Jenny Gandhi DPM Work Phone: [facility] Start: 04-25-2024 End: 04-25-2024 Bamboo flowsheet Jenny Gandhi DPM Work Phone: [facility] Start: 03-04-2024 End: 03-04-2024 ambulatory RAUL Peña [facility] Start: 03-04-2024 End: 03-04-2024 ambulatory RAUL G [facility] Start: 02-01-2024 End: 02-01-2024 ambulatory JENNY GANDHI Not Available Start: 01-04-2024 End: 01-04-2024 ambulatory JENNY GANDHI [facility] Comment on above: Degeneration of lumb ar intervertebral disc Start: 11-30-2023 Orders Only Lisette Nova DUTY MANAGER-MACHINE TANK OPERATOR Work Phone: [facility] [facility] Comment on above: Degeneration of lumb ar intervertebral disc Start: 11-17-2023 End: 11-17-2023 ambulatory JENNY GANDHI Not Available Start: 11-09-2023 Orders Only Lisette Nova DUTY MANAGER-MACHINE TANK OPERATOR Work Phone: [facility] Comment on above: Closed nondisplaced fracture of first metatarsal bone of left foot with delayed healing, subsequent encounter (Primary Dx) Start: 11-07-2023 End: 11-07-2023 ambulatory [facility] Start: 11-02-2023 End: 11-02-2023 Office outpatient visit 15 minutes Lisette Nova DUTY MANAGER-MACHINE TANK OPERATOR Work Phone: [facility] Comment on above: COVID (Primary Dx); Degeneration of lumbar intervertebral disc; Cellulitis of left lower extremity Start: 11-02-2023 End: 11-02-2023 Orders Only Lisette Nova DUTY MANAGER-MACHINE TANK OPERATOR Work Phone: [facility] Start: 11-01-2023 Refill Marixa Robbedi in [facility] Comment on above: Degeneration of lumb ar intervertebral disc Start: 10-25-2023 Refill Jose Painter DUTY MANAGER-RUBBER CUTTER Work Phone: [facility] Comment on above: Bronchitis Start: 10-13-2023 End: 10-13-2023 Office outpatient visit 25 minutes Lisette Nova DUTY MANAGER-MACHINE TANK OPERATOR [facility] Comment on above: Flu-like symptoms (P rimary Dx); COVID; Osteomyelitis of left foot, unspecified type ([facility]) Start: 10-13-2023 End: 10-13-2023 ambulatory [facility] Start: 10-06-2023 End: 10-06-2023 ambulatory [facility] Start: 10-06-2023 End: 10-06-2023 Office outpatient visit 15 minutes Lisette Nova DUTY MANAGER-MACHINE TANK OPERATOR Work Phone: [facility] Comment on above: Cellulitis of left l ower extremity (Primary Dx) Start: 09-29-2023 Orders Only Lisette Nova DUTY MANAGER-MACHINE TANK OPERATOR Work Phone: [facility] Comment on above: Degeneration of lumb ar intervertebral disc Start: 09-11-2023 End: 09-11-2023 ambulatory [facility] Start: 09-11-2023 End: 09-11-2023 Office outpatient visit 15 minutes Lisette Nova DUTY MANAGER-MACHINE TANK OPERATOR Work Phone: [facility] Comment on above: Acute non-recurrent frontal sinusitis (Primary Dx); Tobacco abuse counseling Start: 09-01-2023 End: 09-01-2023 Office outpatient visit 15 minutes [facility] DUTY MANAGER-RUBBER CUTTER Work Phone: [facility] Comment on above: Bronchitis (Primary Dx) Start: 09-01-2023 End: 09-01-2023 ambulatory [facility] Start: 08-25-[address] [facility] Comment on above: Degeneration of lumb ar intervertebral disc Start: 08-15-2023 End: 08-15-2023 ambulatory Lance Nogueira Other [facility] Other Start: 08-15-2023 Telephone encounter Lance [facility]RAX[facility] Start: 06-09-2023 End: 06-09-2023 ambulatory Lance Nogueira Other [facility] Other Start: 06-09-2023 Telephone encounter Lance [facility]RAXTON [facility] Start: 05-31-2023 End: 05-31-2023 ambulatory Lance Nogueira Other [facility] Other Start: 05-31-2023 Telephone encounter Lnace [facility] Start: 05-24-2023 End: 05-24-2023 ambulatory Lance Mirlande Other [facility] Other Start: 05-24-2023 Patient encounter procedure Lance Nogueira [facility] Start: 03-01-2023 End: 03-01-2023 ambulatory Oly Ruff Other [facility] Other Start: 03-01-2023 Office outpatient vi sit 15 minutes Olyanna Ruff [facility] Start: 11-02-2022 Office outpatient vi sit 15 minutes Brandy David [facility] Start: 11-02-2022 End: 11-02-2022 ambulatory Brandy David Facility:[facility] Start: 11-02-2022 End: 11-02-2022 ambulatory DO Laurie Posey Work Phone: [facility] Work Phone: Start: 11-02-2022 End: 11-02-2022 Departed Referred DO Laurie Posey Work Phone: [facility] [place] Work Phone: Start: 10-05-2022 End: 10-05-2022 ambulatory Oly Elzbieta Other [employer] Other Start: 10-05-2022 Office outpatient vi sit 15 minutes Oly Elzbieta [facility] Start: 07-13-2022 End: 07-13-2022 ambulatory Lance Schwartzy Other [employer] Other Start: 07-13-2022 Telephone encounter Lance Nogueira [facility] Start: 12-22-2021 End: 12-22-2021 ambulatory Oly Elzbieta Other [facility] Other Start: 12-22-2021 Office outpatient vi sit 15 minutes Oly Elzbieta [facility] Start: 12-13-2021 End: 12-13-2021 ambulatory Lance Nogueira Other [facility] Other Start: 12-13-2021 Telephone encounter Lance Nogueira [facility] Start: 11-30-2021 End: 11-30-2021 ambulatory Lance Schwartzy Other [facility] Other Start: 11-30-2021 Patient encounter procedure Lance Nogueira [facility] Start: 11-11-2021 End: 11-11-2021 ambulatory Lance Nogueira Other [employer] Other Start: 11-11-2021 Telephone encounter Lance Nogueira [facility] Start: 08-03-2021 End: 08-03-2021 ambulatory Lance Schwartzy Other [facility] Other Start: 08-03-2021 Telephone encounter Lance Nogueira [facility] Start: 06-28-2021 Office outpatient vi sit 15 minutes Brandy Hernandez [facility] Start: 05-08-2020 Patient encounter procedure [facility] Facility:[facility] Start: 08-26-2019 End: 08-27-2019 Patient encounter procedure [facility] Facility: Start: 06-20-2019 End: 06-21-2019 Patient encounter procedure [facility] Facility:[facility] Procedures Date Procedure Procedure Detail Performing Clinician Start: 10-16-2024 AUDITORY FUNCTION TESTS Karissa Jacqueline Kitchen CCC-A Work Phone: Start: 10-15-2024 [facility] LIVER PANEL Trae Gann MD Work Phone: Start: 10-11-2024 ALL BASIC METABOLIC PANEL Trae Gann MD Work Phone: Start: 10-11-2024 ECG 12-LEAD Trae jackson MD Work Phone: Start: 08-23-2024 Follow-up visit Follow-up OJSE PAINTER Start: 07-17-2024 Sukhdeep ivey MONOR[facility] HOOKER Start: 06-24-2024 Adult depression scr eening assessment Raul Furlong DO Work Phone: Start: 03-04-2024 Adult depression scr eening assessment Raul Furlong DO Work Phone: Start: 10-13-2023 POCT INFLUENZA A/INF LUENZA B/SARS-COV-2 VERITOR Lisette Nova DUTY MANAGER-MACHINE TANK OPERATOR Work Phone: Start: 10-13-2023 Adult depression scr eening assessment Lisette Nova DUTY MANAGER-MACHINE TANK OPERATOR Work Phone: Start: 10-06-2023 Adult depression scr eening assessment Lisette Nova DUTY MANAGER-MACHINE TANK OPERATOR Work Phone: Start: 09-11-2023 Adult depression scr eening assessment Lisette Nova DUTY MANAGER-MACHINE TANK OPERATOR Work Phone: Start: 09-01-2023 Adult depression scr eening assessment Jose Painter DUTY MANAGER-RUBBER CUTTER Work Phone: Start: 06-06-2023 Adult depression scr eening assessment Teja Erazo MONORAIL HOOKER Start: 11-02-2022 Piperacillin/tazobactam Brandy Hernandez Other Start: 07-26-2021 Mammography Jenny zuleta DPM Work Phone: Plan of Treatment Date Care Activity Detail Author Start: 07-17-2034 Screening for malign ant neoplasm of colon [facility] Start: 02-12-2029 DTaP,Tdap and Td Vaccines (2 - Td or Tdap) DTaP,Tdap and Td Vaccines (2 - Td or Tdap) [facility] Start: 06-06-2027 Screening for malign ant neoplasm of colon FIT-[facility] Start: 08-23-2025 Adult BMI Screening Adult BMI Screen ing [facility] Start: 08-23-2025 Tobacco Screening Tobacco Screening [facility] Start: 07-17-2025 Adult BMI Screening Adult BMI Screen ing [facility] Start: 07-17-2025 Tobacco Screening Tobacco Screening [facility] Start: 06-24-2025 Adult BMI Screening Adult BMI Screen ing [facility] Start: 06-24-2025 Depression Screening Depression Scre ening [facility] Start: 06-24-2025 Tobacco Screening Tobacco Screening [facility] Start: 03-04-2025 Adult BMI Screening Adult BMI Screen ing [facility] Start: 03-04-2025 Depression Screening Depression Scre ening [facility] Start: 03-04-2025 Tobacco Screening Tobacco Screening [facility] Start: 11-13-2024 End: 11-13-2024 Patient encounter procedure 11/13/2024 1:30 PM EDT Office Visit [facility] [address] [facility] [address] [place] [address] Trae Gann MD [address] [facility] [address] [place] [address] [facility] Start: 11-01-2024 Tobacco Screening Tobacco Screening [facility] Start: 10-21-2024 End: 10-21-2024 Patient encounter procedure 10/21/2024 2:45 PM EST Office Visit [facility] [address] [place] [address] Raul Christianson, [address] [place] [address] [facility] Start: 10-16-2024 End: 10-16-2024 Clinical Support [facility] Comment on above: Arrived Start: 10-13-2024 Adult BMI Screening Adult BMI Screen ing [facility] Start: 10-13-2024 Depression Screening Depression Scre ening [facility] Start: 10-13-2024 Tobacco Screening Tobacco Screening [facility] Start: 10-06-2024 Adult BMI Screening Adult BMI Screen ing [facility] Start: 10-06-2024 Depression Screening Depression Scre ening [facility] Start: 10-06-2024 Tobacco Screening Tobacco Screening [facility] Start: 09-23-2024 End: 09-23-2024 Patient encounter procedure 09/23/2024 9:00 AM EST Office Visit [facility] [address] [place] [address] Raul Christianson, [address] [facility] [place] [address] [facility] Start: 09-17-2024 End: 09-17-2024 Patient encounter procedure [facility] Comment on above: Arrived Start: 09-11-2024 Adult BMI Screening Adult BMI Screen ing [facility] Start: 09-11-2024 Depression Screening Depression Scre ening [facility] Start: 09-11-2024 Tobacco Screening Tobacco Screening [facility] Start: 09-04-2024 Administration of varicella zoster vaccine Zoster (Shingles) Vaccine (1 of 2) [facility] Comment on above: Postponed from 11/23 (Patient Refused) Start: 09-04-2024 Influenza vaccination Influenza Vacc ine [facility] Comment on above: Postponed from 05/05 (Patient Refused) Start: 09-01-2024 Adult BMI Screening Adult BMI Screen ing [facility] Start: 09-01-2024 Depression Screening Depression Scre ening [facility] Start: 09-01-2024 Tobacco Screening Tobacco Screening [facility] Start: 07-17-2024 End: 07-17-2024 Admission to same day surgery center 07/17/2024 10:00 AM EST - 07/17/2024 11:00 AM EST Surgery [facility] Endoscopy [address] [place] [id number] Laurie Posey, DO [address] [place] [address] COLONOSCOPY DIAGNOSTIC / SCREENING [80545 (CPT )] [facility] Comment on above: COLONOSCOPY DIAGNOST IC / SCREENING [25410 (CPT )] Start: 07-17-2024 End: 07-17-2024 Colonoscopy flx dx w/collj spec when pfrmd COLONOSCOPY DIAGNOSTIC / SCREENING abnormal findings in stool 07/17/2024 10:00 AM EST [facility] Start: 07-17-2024 Subsequent hospital visit by physician 07/17/2024 10:00 AM EST Hospital Encounter [facility] [address] [place] [id number] Laurie Posey, DO [address] [place] [address] [facility] Start: 07-16-2024 End: 07-16-2024 ambulatory 07/16/2024 3:00 PM EST Support Visit [facility] - Pre Admit [address] [place] [id number] [facility] Pre Admit Start: 06-06-2024 Depression Screening Depression Scre ening [facility] Start: 06-06-2024 Tobacco Screening Tobacco Screening [facility] Start: 05-20-2024 Tobacco Counseling Tobacco Counselin janee [facility] Comment on above: Postponed from 11/23 (Not Indicated) Start: 05-18-2024 Adult BMI Screening Adult BMI Screen ing [facility] Start: 05-05-2024 Influenza vaccination [facility] Start: 04-25-2024 End: 04-25-2024 Patient encounter procedure 04/25/2024 4:15 PM EDT [facility] [address] [place] [id number] Jenny Gandhi, DPM [address] [place], [place] [id number] Arrived [facility] Comment on above: Arrived Start: 11-07-2023 End: 11-07-2023 Patient encounter procedure 11/07/2023 9:15 AM EST Appointment [facility] MRI Imaging [address] [place] [address] [facility] Start: 11-03-2023 End: 11-03-2023 Patient encounter procedure 11/03/2023 10:30 AM EST [facility] [address] [place] [address] Lisette Nova, DUTY MANAGER-MACHINE TANK OPERATOR [address] [place] [address] [facility] Start: 10-13-2023 End: 10-13-2024 MR Foot - left WO contrast MR foot left without contrast Imaging Routine Osteomyelitis of left foot, unspecified type ([facility]) Expected: 10/13/2023, Expires: 10/13/2024 [facility] Work Phone: Comment on above: Expected: 10/13/2023 , Expires: 10/13/2024 Start: 08-24-2023 Adult BMI Follow Up Plan Adult BMI Follow Up Plan [facility] Start: 11-02-2022 Bacteria identified in Urine by Culture Urine Culture [facility] Start: 07-26-2022 Screening for malign ant neoplasm of breast Mammogram [facility] Start: 2020 Administration of varicella zoster vaccine Zoster (Shingles) Vaccine (1 of 2) [facility] Start: 11-24-2015 Screening for malign ant neoplasm of colon Colonoscopy [facility] Start: 2000 Screening for malign ant neoplasm of cervix [facility] Start: 11-24-1991 Screening for malign ant neoplasm of cervix Pap Smear [facility] Start: 1989 Administration of varicella zoster vaccine Zoster (Shingles) Vaccine (1 of 2) [facility] Start: 1988 Adult BMI Follow Up Plan Adult BMI Follow Up Plan [facility] Start: 1970 Screening for malign ant neoplasm of colon [facility] Start: 1970 Tobacco Counseling Tobacco Counselin g [facility] End: 06-17-2025 Colonoscopy Colonoscopy GI Routine Abnormal findings in stool 1 Occurrences starting 06/17/2024 until 06/17/2025 [facility] Work Phone: Comment on above: 1 Occurrences starti ng 06/17/2024 until 06/17/2025 Immunizations Immunization Date Immunization Notes Care Provider Nolberto link 06-26-2023 influenza, injectabl e, quadrivalent, preservative free Lisette Chavezkush DUTY MANAGER-MACHINE TANK OPERATOR Work Phone: [facility] 06-26-2023 Seasonal trivalent influenza vaccine, adjuvanted, preservative free Teja Erazo [facility] 06-26-2023 influenza virus vaccine, unspecified formulation Jenny ROSE Work Phone: [facility] 07-06-2020 influenza, injectabl e, quadrivalent, preservative free Lisette Nova DUTY MANAGER-MACHINE TANK OPERATOR Work Phone: [facility] 08-26-2019 Seasonal, quadrivalent, recombinant, injectable influenza vaccine, preservative free Lisette Chavezkush DUTY MANAGER-MACHINE TANK OPERATOR Work Phone: [facility] 02-12-2019 tetanus toxoid, reduced diphtheria toxoid, and acellular pertussis vaccine, adsorbed Brandy David Other [facility] Other 05-28-2014 influenza, seasonal, injectable Lisette Nova DUTY MANAGER-MACHINE TANK OPERATOR [facility] Phone[facility] Payers Date Payer Category Payer Self-pay [id number] 2022 Unknown [id number] 2022 Medicaid [place] [employer] [id number] 2022 Medicaid [id number] 2022 Medicaid (Managed Care) [employer] [id number] 1970 Unknown [id number] 2.16.840.1.756951.3.579.2. 593 1970 Unknown [id number] 2.16.840.1.947804.3.579.2. 593 1970 Unknown [id number] 2.16.840.1.544286.3.579.2. 593 1970 Unknown [id number] 2.16.840.1.617920.3.579.2. 128 1970 Unknown [id number] 2.16.840.1.392210.3.579.2. 1285 1970 Unknown [id number] 2.16.840.1.455828.3.579.2. 1285 1970 Unknown [id number] 2.16.840.1.255558.3.579.2. 1285 1970 Unknown [id number] 2.840.1.908011.3.579.2. 1285 1970 Unknown [id number] 2.840.1.287585.3.579.2. 1285 1970 Unknown [id number] 2.16.840.1.547211.3.579.2. 1285 1970 Unknown [id number] 2.16.840.1.774958.3.579.2. 1285 1970 Unknown [id number] 2.16.840.1.034973.3.579.2. 1285 1970 Unknown [id number] 2.16.840.1.234939.3.579.2. 128 1970 Unknown [id number] 2.16.840.1.688742.3.579.2. 1285 1970 Unknown [id number] 2.16.840.1.727230.3.579.2. 1285 1970 Unknown [id number] 2.16.840.1.156974.3.579.2. 1259 1970 Unknown [id number] 2.16.840.1.951242.3.579.2. 1259 1970 Unknown [id number] 2.16.840.1.910730.3.579.2. 1259 1970 Unknown [id number] 2.16.840.1.818213.3.579.2. 9 1970 Unknown [id number] 2.16.840.1.841319.3.579.2. 1258 1970 Unknown [id number] 2.16.840.1.318954.3.579.2. 9 1970 Unknown [id number] 2.16.840.1.621182.3.579.2. 9 1970 Unknown [id number] 2.16.840.1.317300.3.579.2. 1259 1959 Self-pay [id number] 1959 Unknown [id number] Private Health Insurance [facility] Insurance Co [id number] Unknown [id number] 2.16.840.1.669611.19 Unknown MMO [id number] Unknown [id number] 2.16.840.1.567374.3.579.2. 531 Social History Date Type Detail Facility Unknown if ever smoked [facility] Other Start: 09-11-2023 End: 09-17-2024 Sex Assigned At [facility] Start: 10-02-2019 Tobacco smoking status [facility] Smoker (finding) [facility] Start: 1970 Sex Assigned At Female [facility] Start: 12-15-2022 End: 05-05-2023 Tobacco smoking status TXIS Smokes tobacco daily [facility] Start: 11-24-1988 End: 11-24-2012 History of tobacco use Cigarette Smoker [facility] Start: 12-15-2022 End: 09-17-2024 Cigarettes smoked current (pack per day) - Reported 0.3 [facility] Start: 12-15-2022 End: 05-05-2023 Tobacco use and exposure Smokeless tobacco non-user [facility] Start: 09-11-2023 End: 09-17-2024 Alcohol intake Current drinker of alcohol (finding) [facility] Start: 04-22-2024 How hard is it for you to pay for the very basics like food, housing, medical care, and heating Not hard at all [facility] Start: 10-25-2022 Alcohol Comment Social [facility] Start: 1970 Sex Assigned At Not on file [facility] [place] [place] [facility] Start: 04-22-2024 Gender identity Identifies as female gender (finding) [facility] Start: 04-09-2015 Sex Female (finding) [facility] Has the electric, [employer] s, oil, or water company threatened to shut off services in your home in past 12Mo No [facility] Do you belong to any clubs or organizations such as samaritan groups, unions, fraternal or athletic groups, or school groups? Yes [facility] Are you now , , , , never or living with a partner? Never [facility] How often to you hav e a drink containing alcohol? 2-4 times a month [facility] How many standard dr inks containing alcohol do you have on a typical day? 3 or 4 [facility] How often do you hav e 6 or more drinks on 1 occasion? Less than monthly [facility] Do you feel stress - tense, restless, nervous, or anxious, or unable to sleep at night because your mind is troubled all the time - these days [OSQ] Rather much [facility] Clinical Notes 06-28-2021 to 10-16-2024 Karissa Kitchen, [facility] - 10/16/2024 11:30 AM ESTTelephone Encounter - [facility] - 10/04/2024 11:08 AM ESTTelephone Encounter - [facility] - 10/04/2024 11:08 AM EST Note Date & Type Note Facility 10-16-2024 History of Presen t illness Narrative History: Pt is here for pre-op audio. Pt is scheduled to have a tube placed in her right ear. Pt is not hearing well from her right ear. Pure Tone Audiometry Right Ear: Mild conductive hearing loss from 250 Hz - 500 Hz and above 2K Hz Left Ear: Normal hearing. Possible air bone gaps - could not mask bone conduction Speech Audiometry Right SRT = 20 dB and word discrimination score at 55 dBHL = 92% Left SRT = 10 dB and word discrimination score at 55 dBHL = 96% Tympanometry Right Ear: Type B tympanogram Left Ear: Type C tympanogram Impressions: documented in this encounter [facility] 10-04-2024 Telephone encount er Note Left message on pt's vm regarding rx. [facility] 10-04-2024 Miscellaneous Notes Formattin g of this note might be different from the original. Left message on pt's vm regarding rx. RX sent in Pt is scheduled for surgery 10/17/24. She is now having an ear infection, do you want to see her, have her go to Urgent Care, or what should she do. She is not having drainage yet, the swishing she has in her ear and some ear pain now. documented in this encounter [facility] 10-04-2024 Telephone encount er Note RX sent in [facility] 10-04[facility]20[facility] Pt is scheduled for [facility] 10/17/24. She is now having an ear infection, do you want to see her, have her go to Urgent Care, or what should she do. She is not having drainage yet, the swishing she has in her ear and some ear pain now. [facility] 09-17-2024 History of Presen t illness Narrative Subjective Patient ID: Aruna Bnez is a 53 y.o. female who presents for Ear Problem (Fluid in ear) Pt reports she had an ear infection in August. Has had tubes twice as a child and a polyp removed in 1988. Pt states she had otorrhea initially, but that resolved, and she still has some pressure. Pt states she never noticed HL. Review of Systems All other systems reviewed and are negative. No family history on file. Active Ambulatory Problems Diagnosis Date Noted Anemia 05/06/2022 Anxiety 09/03/2024 Carpal tunnel syndrome 05/06/2022 Chronic back pain 12/05/2017 Degeneration of lumbar intervertebral disc 09/01/2020 Malaise and fatigue 05/06/2022 Positive colorectal cancer screening using Cologuard test 07/07/2024 Primary biliary cholangitis (CMS/HCC) 08/19/2019 Recurrent UTI 05/06/2022 Varicose veins of lower extremity 12/23/2021 Resolved Ambulatory Problems Diagnosis Date Noted No Resolved Ambulatory Problems Past Medical History: Diagnosis Date Hypothyroidism (CMS/HCC) Impaired fasting glucose Polyneuropathy Past Surgical History: Procedure Laterality Date SECTION, CLASSIC 1992 SECTION, CLASSIC 1997 COLONOSCOPY COLONOSCOPY 07/17/2024 CYSTOSCOPY W/ RETROGRADES GASTRIC BYPASS 2000 HERNIA REPAIR 1997 HERNIA REPAIR 2006 HYSTERECTOMY 2006 SCALP LESION REMOVAL W/ FLAP AND SKIN GRAFT 2002 TUBAL LIGATION 1998 Allergies Allergen Reactions Codeine GI intolerance Current Outpatient Medications on File Prior to Visit Medication Sig Dispense Refill albuterol HFA 90 mcg/act inhaler Inhale 2 puffs every 4 (four) hours if needed benzocaine-menthol (Cepastat Sore Throat) 15-3.6 MG Dissolve 1 lozenge in the mouth every 2 (two) hours if needed for sore throat biotin 1 MG capsule Take by mouth. calcium carbonate (Tums) 500 MG chewable tablet Chew 500 mg in the morning. cholecalciferol (Vitamin D-3) 1.25 MG (39104 UT) capsule Take 50,000 Units by mouth 1 (one) time per week. Dextromethorphan-guaiFENesin (Mucus Relief DM Max) 60-1200 MG tablet sustained-release 12 hour TAKE 1 TABLET BY MOUTH EVERY 12 HOURS NEEDED FOR COUGH AND CONGESTION WITH A FULL GLASS OF WATER. escitalopram (Lexapro) 20 MG tablet Take 20 mg by mouth in the morning. ferrous sulfate 8.8 mg/mL elemental iron elixir 65 mg of iron. fluticasone (Flonase) 50 MCG/ACT nasal spray Administer 1 spray into each nostril in the morning. Shake gently. Before first use, prime pump. After use, clean tip and replace cap.. Ocaliva 10 MG tablet omeprazole (PriLOSEC) [address] capsule Take 40 mg by mouth in the morning. Take before meals. Do not crush or chew. . phenazopyridine (Pyridium) 200 MG tablet Take 200 mg by mouth 3 (three) times a day as needed for bladder spasms. phytonadione (Vitamin K) 100 MCG tablet Take by mouth. promethazine-dextromethorphan (Phenergan-DM) 6.25-15 MG/5ML syrup Take 5 mL by mouth 4 (four) times a day as needed tiZANidine (Zanaflex) 4 MG tablet Take 4 mg by mouth every 6 (six) hours if needed for muscle spasms. traMADol (Ultram) 50 MG tablet Take 50 mg by mouth. ursodiol (Actigall) 300 MG capsule valACYclovir (Valtrex) 1 g tablet Take 1,000 mg by mouth in the morning and 1,000 mg before bedtime. zinc gluconate 50 MG tablet Take 50 mg by mouth in the morning. No current facility-administered medications on file prior to visit. Objective Last Recorded Vitals Vitals: 09/17/24 1347 BP: 83/66 Pulse: 108 ENT Physical Exam Constitutional Appearance: patient appears well-developed, well-nourished and well-groomed, Head and Face Appearance: head appears normal and face appears atraumatic; Ear Ear Canals: left ear canal normal; Tympanic Membranes: left tympanic membrane normal; Ear comments: Severe retraction of the TM into the ME and adhesion to the promontory and incus/stapes Nose External Nose: nares patent bilaterally; external nose normal; Internal Nose: septum normal; Oral Cavity/Oropharynx Tongue: normal; Oral mucosa: normal; Hard palate: normal; Soft palate: normal; Tonsils: normal; Neck Neck: neck normal; neck palpation normal; Thyroid: thyroid normal; Respiratory Inspection: breathing unlabored; normal breathing rate; Auscultation: breath sounds are clear; Cardiovascular Inspection: extremities are warm and well perfused; no peripheral edema present; Auscultation: regular rate and rhythm; Assessment/Plan Diagnoses and all orders for this visit: ETD (Eustachian tube dysfunction), right 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 I will plan placement of a t-tube with prolonged nitrous to help reduce the TM retraction documented in this encounter [facility] 09-12-2024 History of Presen t illness Narrative Images from the original note were not included. Subjective Patient ID: Aruna Benz is a 53 y.o. female who presents for Foot Callouses (Established pt presents today for callus care.). HPI Patient presents for callus debridement. She states the calluses are significantly painful for her. She occasionally uses callus pads. She works a part-time job at the schools in the cafeteria. She has urea cream and pumice stone at home but does not use them regularly Review of Systems Medications Current Outpatient Medications: albuterol HFA 90 mcg/act inhaler, Inhale 2 puffs every 4 (four) hours if needed, Disp: , Rfl: benzocaine-menthol (Cepastat Sore Throat) 15-3.6 MG, Dissolve 1 lozenge in the mouth every 2 (two) hours if needed for sore throat, Disp: , Rfl: biotin 1 MG capsule, Take by mouth., Disp: , Rfl: calcium carbonate (Tums) 500 MG chewable tablet, Chew 500 mg in the morning., Disp: , Rfl: cholecalciferol (Vitamin D-3) 1.25 MG (57093 UT) capsule, Take 50,000 Units by mouth 1 (one) time per week., Disp: , Rfl: Dextromethorphan-guaiFENesin (Mucus Relief DM Max) 60-1200 MG tablet sustained-release 12 hour, TAKE 1 TABLET BY MOUTH EVERY 12 HOURS NEEDED FOR COUGH AND CONGESTION WITH A FULL GLASS OF WATER., Disp: , Rfl: escitalopram (Lexapro) 20 MG tablet, Take 20 mg by mouth in the morning., Disp: , Rfl: ferrous sulfate 8.8 mg/mL elemental iron elixir, 65 mg of iron., Disp: , Rfl: fluticasone (Flonase) 50 MCG/ACT nasal spray, Administer 1 spray into each nostril in the morning. Shake gently. Before first use, prime pump. After use, clean tip and replace cap.., Disp: , Rfl: Ocaliva 10 MG tablet, , Disp: , Rfl: omeprazole (PriLOSEC) [address] capsule, Take 40 mg by mouth in the morning. Take before meals. Do not crush or chew. ., Disp: , Rfl: phenazopyridine (Pyridium) 200 MG tablet, Take 200 mg by mouth 3 (three) times a day as needed for bladder spasms., Disp: , Rfl: phytonadione (Vitamin K) 100 MCG tablet, Take by mouth., Disp: , Rfl: promethazine-dextromethorphan (Phenergan-DM) 6.25-15 MG/5ML syrup, Take 5 mL by mouth 4 (four) times a day as needed, Disp: , Rfl: tiZANidine (Zanaflex) 4 MG tablet, Take 4 mg by mouth every 6 (six) hours if needed for muscle spasms., Disp: , Rfl: traMADol (Ultram) 50 MG tablet, Take 50 mg by mouth., Disp: , Rfl: valACYclovir (Valtrex) 1 g tablet, Take 1,000 mg by mouth in the morning and 1,000 mg before bedtime., Disp: , Rfl: zinc gluconate 50 MG tablet, Take 50 mg by mouth in the morning., Disp: , Rfl: Allergies Codeine Past Surgical History Past Surgical History: Procedure Laterality Date SECTION, CLASSIC 1992 SECTION, CLASSIC 1997 COLONOSCOPY COLONOSCOPY 07/17/2024 CYSTOSCOPY W/ RETROGRADES GASTRIC BYPASS 2000 HERNIA REPAIR 1997 HERNIA REPAIR 2006 HYSTERECTOMY 2006 SCALP LESION REMOVAL W/ FLAP AND SKIN GRAFT 2002 TUBAL LIGATION 1998 Family History No family history on file. Objective Physical Exam Constitutional: Appearance: Normal appearance. HENT: Head: Normocephalic and atraumatic. Cardiovascular: Comments: Pedal pulses: DP 2/4 bilateral, PT 2/4 bilateral. Skin temp is warm to warm. Varicosities: Mild, present Hair growth: present Localized edema noted dorsal lateral L foot Pulmonary: Effort: Pulmonary effort is normal. Musculoskeletal: Right lower leg: No edema. Left lower leg: No edema. Comments: RANGE MOTION: AJ and STJ ROM are normal and pain free. MUSCLE STRENGTH:Dorsiflexion, plantarflexion, inversion, eversion are 5/5 b/l. PAIN: There is pain at the calluses/IPKs DEFORMITIES: Lesser digits 2 through 5 bilaterally are contracted Skin: General: Skin is warm and dry. Capillary Refill: Capillary refill takes 2 to 3 seconds. Findings: No bruising or erythema. Comments: SKIN FINDINGS: No localized erythema or ecchymosis noted of the left foot. Webspaces are clean and dry HYPERKERATOTIC LESION: there are thick hyperkeratotic lesions noted submetatarsal heads 1 3 and 5 on the right and 1 and 5 on the left. Central to these hyperkeratotic lesions there are porokeratosis/ IPK is noted at the right submetatarsal head 1 and 3 and left submetatarsal head 1 and 5. Additional callus lesion noted distal tuft of R 3rd digit. NAIL PATHOLOGY: none Skin texture and turgor: normal Neurological: Mental Status: She is alert and oriented to person, place, and time. 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 Signal abnormality distal 2nd metatarsal with crescentic signal along subcortical subchondral bone of the articular surface. Mild flattening of the metatarsal head. There is edema throughout the 2nd MTPJ and distal and mid metatarsal shaft. 34066 Assessment/Plan ICD-10-CM 1. Callus L84 2. Porokeratosis Q82.8 3. Acquired keratoderma L85.1 4. Pain in both feet M79.671 M79.672 The calluses/ IPK lesions were debrided with # 15 blade. Care was taken to remove the nucleated center of these lesions. Symptomatic relief obtained at the completion of treatment. Debridement was painful for the patient today. I recommended the evening before her next appointment, to apply Urea cream under occlusion to the calluses. Reiterated the importance of Being consistent with twice a day urea cream and pumice stone after bathing or showering. She will return as needed for callus debridement. This note was created with the assistance of a speech recognition program. While intending to generate a timely document that accurately reflects the content of the visit, no guarantee can be provided that every grammatical or spelling mistake has been or will be identified or corrected. Thank you for your understanding. Jenny Gandhi DPM documented in this encounter [facility] 08-23-2024 History of Presen t illness Narrative [facility] [id number] Patient: Aruna Benz Date of : 1970 Encounter Date: 08/23/2024 History of Present Illness: The patient is a 53 y.o. female, an established patient, and is here for Chief Complaint Patient presents with Follow-up Urgent care chest and ear swishing . HPI Patient's symptoms started about 1 and half weeks ago and she missed work Monday and Monday last week due to right ear pain and upper respiratory congestion. She went to the urgent care in [place] on Monday and was given Augmentin, Mucinex DM and prednisone in her symptoms have improved but she continues to have loss of hearing and right ear pain. She would like her right ear checked today. Patient denies any fevers or shortness a breath. She has had trouble with her right ear in the past as it has ruptured before and she has had to see ENT in the past. Patient states she is in a baptiste today because she needs to get to work in the next 15 minutes so she only wants her ear checked today or she will be late. Problem List Items Addressed This Visit None Visit Diagnoses Eustachian tube dysfunction, right - Primary Fluid collection of middle ear Relevant Orders Ambulatory referral to ENT (Non[facility]) Past Medical, Family, and Social History Update: The following portions of the patient's history were reviewed and updated as appropriate: allergies, current medications, past family history, past medical history, past social history, past surgical history and problem list. Past Medical History: Diagnosis Date Anemia Anxiety Arthritis Asthma has outgrown GERD (gastroesophageal reflux disease) Herpes Primary biliary cholangitis (CMS-HCC) Urinary tract infection Visual impairment Past Surgical History: Procedure Laterality Date COLONOSCOPY DIAGNOSTIC / SCREENING N/A 07/17/2024 Performed by Laurie Posey DO at [facility] CYSTOSCOPY RETROGRADE PYELOGRAM Bilateral 12/28/2022 Performed by Jeremías Rogers MD at [facility] CYSTOSCOPY WITH [facility] BLADDER SOLUTUON N/A 12/28/2022 Performed by Jeremías Rogers MD at [facility] GASTRIC BYPASS 09/11/2000 HERNIA REPAIR 2002 HYSTERECTOMY 2008 LIVER BIOPSY Current Outpatient Medications Medication Sig Dispense Refill albuterol (PROVENTIL HFA;VENTOLIN HFA) 90 mcg/actuation inhaler inhale 2 puffs by mouth every 4 hours as needed for wheezing 8.5 g 1 amoxicillin-pot clavulanate (AUGMENTIN) 875-125 mg per tablet TAKE 1 TABLET BY MOUTH TWICE DAILY FOR 10 DAYS. TAKE WITH FOOD benzocaine-menthoL (CEPACOL SORE THROAT, DAWSON-MEN,) 15-2.6 mg lozenge Dissolve 1 lozenge in the mouth every 2 (two) hours as needed (sore throat). 14 lozenge 1 biotin 1 mg tablet Take 1 tablet (1 mg total) by mouth in the morning. calcium carbonate (OS-NILESH) 500 mg calcium (1,250 mg) chewable tablet Chew 1 tablet (500 mg total) and swallow in the morning. cholecalciferol (VITAMIN D3) 50,000 units capsule Take 1 capsule (50,000 Units total) by mouth in the morning. escitalopram (LEXAPRO) 20 mg tablet Take 1.5 tablets (30 mg total) by mouth in the morning. Taking 1 1/2 tabs. FeroSuL 325 mg (65 mg iron) tablet Take 1 tablet (325 mg total) by mouth in the morning and 1 tablet (325 mg total) before bedtime. fluticasone propionate (FLONASE) 50 mcg/actuation nasal spray Administer 1 spray into each nostril as needed for rhinitis. 16 g 5 guaiFENesin (MUCINEX) 600 mg tablet extended release 12hr Take 1 tablet (600 mg total) by mouth every 12 (twelve) hours. 20 tablet 1 inhalational spacing device (AEROCHAMBER MV) spacer 1 each by miscellaneous route every 6 (six) hours as needed (use with albuterol). 1 each 0 MUCUS DM MAX ER 60-1,200 mg tablet extended release 12 hr TAKE 1 TABLET BY MOUTH EVERY 12 HOURS NEEDED FOR COUGH AND CONGESTION WITH A FULL GLASS OF WATER. chzwckfcmflx-zvvrovns-nndqpc (MULTIVITAMIN 50 PLUS) tablet 1 tablet in the morning. OCALIVA 10 mg tablet omeprazole (PriLOSEC) 40 mg capsule 1 capsule (40 mg total) in the morning and 1 capsule (40 mg total) before bedtime. phytonadione, vit K1, (phytonadione, vitamin K1,) 100 mcg tablet Take 1 tablet (100 mcg total) by mouth once daily. promethazine/dextromethorphan (promethazine-DM) 6.25-15 mg/5 mL syrup Take 5 mL by mouth 4 (four) times a day as needed for cough. 118 mL 0 tiZANidine (ZANAFLEX) 4 mg tablet Take 1 tablet (4 mg total) by mouth in the morning and at bedtime. 60 tablet 2 traMADoL (ULTRAM) 50 mg tablet Take 1 tablet (50 mg total) by mouth 4 (four) times daily after meals and at bedtime as needed (as needed for back pain) for up to 30 days. 120 tablet 0 ursodioL (ACTIGALL) 300 mg capsule Take 1 capsule (300 mg total) by mouth in the morning and 1 capsule (300 mg total) at noon and 1 capsule (300 mg total) in the evening and 1 capsule (300 mg total) before bedtime. valACYclovir (VALTREX) 1000 mg tablet Take 2 tablets (2,000 mg total) by mouth 2 (two) times a day as needed (cold sore). zinc gluconate 50 mg tablet Take 1 tablet (50 mg total) by mouth in the morning. nicotine (NICODERM CQ) 21 mg/[address] 1 patch on the skin daily. (Patient not taking: Reported on 08/23/2024) 30 patch 1 OCALIVA 5 mg tablet (Patient not taking: Reported on 08/23/2024) No current facility-administered medications for this visit. (All medications reviewed and updated by provider since last office visit or hospitalization) Allergies: Codeine Tobacco History: Social History Tobacco Use Smoking Status Every Day Average packs/day: 1 pack/day for 24.0 years (24.0 ttl pk-yrs) Types: Cigarettes Start date: 11/24/1988 Last attempt to quit: 11/24/2012 Years since quittin.7 Smokeless Tobacco Never (If patient a smoker, smoking cessation counseling offered) Social History: Social History Substance and Sexual Activity Alcohol Use Yes Comment: Social Review of Systems: Review of Systems Constitutional: Negative for activity change, appetite change, fatigue and fever. HENT: Positive for congestion, ear pain and rhinorrhea. Respiratory: Negative. Cardiovascular: Negative. Gastrointestinal: Negative. Physical Exam: BP 90/58 (BP Site: Left Arm, BP Postition: Sitting) Pulse 93 Temp 36.8 C (98.2 F) (Oral) Resp 18 Ht 177.8 cm (5' 10 ) Wt 79.7 kg (175 lb 12.8 oz) SpO2 96% BMI 25.22 kg/m Physical Exam Vitals reviewed. Constitutional: Appearance: Normal appearance. HENT: Head: Normocephalic and atraumatic. Right Ear: Ear canal and external ear normal. A middle ear effusion is present. Tympanic membrane is bulging. Left Ear: Tympanic membrane, ear canal and external ear normal. Mouth/Throat: Mouth: Mucous membranes are moist. Eyes: Pupils: Pupils are equal, round, and reactive to light. Cardiovascular: Rate and Rhythm: Normal rate and regular rhythm. Heart sounds: Normal heart sounds. Pulmonary: Effort: Pulmonary effort is normal. Breath sounds: Normal breath sounds. Neurological: General: No focal deficit present. Mental Status: She is alert and oriented to person, place, and time. Gait: Gait normal. Psychiatric: Mood and Affect: Mood is anxious. Assessment and Plan: Aruna was seen today for follow-up. Diagnoses and all orders for this visit: Eustachian tube dysfunction, right Fluid collection of middle ear - Ambulatory referral to ENT ([facility]); Future Follow-up: Patient does not have acute otitis media any longer on the right side but she has residual middle ear fluid. She was advised to use Flonase to the right near and continue antihistamine and finish antibiotic and prednisone prescription. She was offered ENT referral and would like in [place]. Follow-up for routine controlled substance appointment with Dr. Christianson as scheduled. JOSE ONTIVEROS APRN-CNP 08/23/24 1239 documented in this encounter [facility] 07-25-2024 Miscellaneous Notes Formattin g of this note might be different from the original. Pt requesting refill on tramadol. Pharmacy is listed and correct. documented in this encounter [facility] 07-25-2024 Telephone encount er Note Pt requesting refill on tramadol. Pharmacy is listed and correct. [facility] 06-24-2024 History of Presen t illness Narrative Subjective Patient ID: Aruna Benz is a 53 y.o. female. rAuna presents today for a controlled substance recheck. She takes tramadol 3 to 4 times a day. She does not use for every day but most days. She does not use it as much on the weekends. She can not take nonsteroidal anti-inflammatories due to history of gastric bypass surgery. Tramadol helps with pain. Worse with activity, walking. Pain on a scale 1-10 is a 6 and then goes down to 1 after medication. Sharp pain. No side effects. Still effective. She has done PT and aquatic therapy. It is improving her quality of life. She is able to work part-time now. 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 The following portions of the patient's history were reviewed and updated as appropriate: allergies, current medications, past family history, past medical history, past social history, past surgical history, problem list, and medication reconciliation was completed including current medication and post discharge medication. Review of Systems Constitutional: Negative. Musculoskeletal: Positive for back pain. Neurological: Negative. Objective Physical Exam Exam conducted with a health and wellness coordinator present (To grandchildren and Lazaro Miguel Angel-Aziz MS III). Constitutional: General: She is not in acute distress. Appearance: She is well-groomed and overweight. She is not ill-appearing. HENT: Head: Normocephalic. Eyes: Extraocular Movements: Extraocular movements intact. Conjunctiva/sclera: Conjunctivae normal. Cardiovascular: Rate and Rhythm: Normal rate and regular rhythm. Pulmonary: Effort: Pulmonary effort is normal. No respiratory distress. Breath sounds: Normal breath sounds. No wheezing or rhonchi. Musculoskeletal: Cervical back: Neck supple. Lumbar back: Tenderness and bony tenderness present. Lymphadenopathy: Cervical: No cervical adenopathy. Neurological: General: No focal deficit present. Mental Status: She is alert and oriented to person, place, and time. Psychiatric: Mood and Affect: Mood normal. Thought Content: Thought content normal. Judgment: Judgment normal. Assessment/Plan Aruna was seen today for controlled. Diagnoses and all orders for this visit: Degeneration of inte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 She is using high risk medication with benefit. She is not having any side effects. It is improving her quality of life. It is still effective. The OARRS/MAPPS database was reviewed today and found to be appropriate. No indication of medication diversion, or non compliance. Overweight She is just barely overweight with clothes on. Likely not overweight without clothes but borderline. She had the gastric bypass surgery. Exercise was discussed and encouraged. Other orders - fluticasone propionate (FLONASE) 50 mcg/actuation nasal spray; Administer 1 spray into each nostril as needed for rhinitis. - escitalopram (LEXAPRO) 20 mg tablet; Take 1.5 tablets (30 mg total) by mouth in the morning. Taking 1 1/2 tabs. - valACYclovir (VALTREX) 1000 mg tablet; Take 2 tablets (2,000 mg total) by mouth 2 (two) times a day as needed (cold sore). documented in this encounter [facility] 06-18-2024 Miscellaneous Notes Formattin g of this note might be different from the original. Pt needs a refill on tramadol. Pharmacy is listed and correct. She is overdue for an appointment. She needs to be seen every 3 months and it should have been a couple weeks ago. She is on a controlled substance and needs an appointment KELLI How about 1:30 next Monday documented in this encounter [facility] 06-18-2024 Telephone encount er Note Pt needs a refill on tramadol. Pharmacy is listed and correct. [facility] 06-18-2024 Telephone encount er Note She is overdue for an appointment. She needs to be seen every 3 months and it should have been a couple weeks ago. She is on a controlled substance and needs an appointment KELLI [facility] 06-18-2024 Telephone encount er Note How about 1:30 next Monday [facility] 06-06-2024 History of Presen t illness Narrative Images from the original note were not included. Subjective Patient ID: Aruna Benz is a 53 y.o. female who presents for Foot Callouses (Established pt presents today for callus debridement.). HPI Established patient returns requesting debridement of painful calluses. She had her calluses last debrided in April. I discussed this is too soon according to insurance I have her calluses debrided. In the future her appointments when needs to be 3 months apart. She states increase in callus buildup is likely due to the fact that she has a new part-time job, so she is standing more than she was previously. She has urea cream and pumice stone at home but does not use them regularly Review of Systems Medications Current Outpatient Medications: biotin 1 MG capsule, Take by mouth., Disp: , Rfl: calcium carbonate (Tums) 500 MG chewable tablet, Chew 500 mg in the morning., Disp: , Rfl: cholecalciferol (Vitamin D-3) 1.25 MG (29246 UT) capsule, Take 50,000 Units by mouth 1 (one) time per week., Disp: , Rfl: escitalopram (Lexapro) 20 MG tablet, Take 20 mg by mouth in the morning., Disp: , Rfl: ferrous sulfate 8.8 mg/mL elemental iron elixir, 65 mg of iron., Disp: , Rfl: fluticasone (Flonase) 50 MCG/ACT nasal spray, Administer 1 spray into each nostril in the morning. Shake gently. Before first use, prime pump. After use, clean tip and replace cap.., Disp: , Rfl: Ocaliva 10 MG tablet, , Disp: , Rfl: omeprazole (PriLOSEC) [address] capsule, Take 40 mg by mouth in the morning. Take before meals. Do not crush or chew. ., Disp: , Rfl: phenazopyridine (Pyridium) 200 MG tablet, Take 200 mg by mouth 3 (three) times a day as needed for bladder spasms., Disp: , Rfl: phytonadione (Vitamin K) 100 MCG tablet, Take by mouth., Disp: , Rfl: tiZANidine (Zanaflex) 4 MG tablet, Take 4 mg by mouth every 6 (six) hours if needed for muscle spasms., Disp: , Rfl: traMADol (Ultram) 50 MG tablet, Take 50 mg by mouth., Disp: , Rfl: ursodiol (Actigall) 300 MG capsule, Take 300 mg by mouth in the morning and 300 mg before bedtime., Disp: , Rfl: valACYclovir (Valtrex) 1 g tablet, Take 1,000 mg by mouth in the morning and 1,000 mg before bedtime., Disp: , Rfl: zinc gluconate 50 MG tablet, Take 50 mg by mouth in the morning., Disp: , Rfl: Allergies Codeine Past Surgical History Past Surgical History: Procedure Laterality Date SECTION, CLASSIC 1992 SECTION, CLASSIC 1997 GASTRIC BYPASS 2000 HERNIA REPAIR 1997 HERNIA REPAIR 2006 HYSTERECTOMY 2006 SCALP LESION REMOVAL W/ FLAP AND SKIN GRAFT 2002 TUBAL LIGATION 1997 Family History No family history on file. Objective Physical Exam Constitutional: Appearance: Normal appearance. HENT: Head: Normocephalic and atraumatic. Cardiovascular: Comments: Pedal pulses: DP 2/4 bilateral, PT 2/4 bilateral. Skin temp is warm to warm. Varicosities: Mild, present Hair growth: present Localized edema noted dorsal lateral L foot Pulmonary: Effort: Pulmonary effort is normal. Musculoskeletal: Right lower leg: No edema. Left lower leg: No edema. Comments: RANGE MOTION: AJ and STJ ROM are normal and pain free. MUSCLE STRENGTH:Dorsiflexion, plantarflexion, inversion, eversion are 5/5 b/l. PAIN: There is pain at the calluses/IPKs DEFORMITIES: Lesser digits 2 through 5 bilaterally are contracted Skin: General: Skin is warm and dry. Capillary Refill: Capillary refill takes 2 to 3 seconds. Findings: No bruising or erythema. Comments: SKIN FINDINGS: No localized erythema or ecchymosis noted of the left foot. Webspaces are clean and dry HYPERKERATOTIC LESION: there are thick hyperkeratotic lesions noted submetatarsal heads 1 3 and 5 on the right and 1 and 5 on the left. Central to these hyperkeratotic lesions there are porokeratosis/ IPK is noted at the right submetatarsal head 1 and 3 and left submetatarsal head 1 and 5 NAIL PATHOLOGY: none Skin texture and turgor: normal Neurological: Mental Status: She is alert and oriented to person, place, and time. 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 Signal abnormality distal 2nd metatarsal with crescentic signal along subcortical subchondral bone of the articular surface. Mild flattening of the metatarsal head. There is edema throughout the 2nd MTPJ and distal and mid metatarsal shaft. [id number] Assessment/Plan ICD-10-CM 1. Callus L84 2. Porokeratosis Q82.8 3. Acquired keratoderma L85.1 4. Pain in both feet M79.671 M79.672 5. Metatarsalgia of both feet M77.41 M77.42 Discussed with the patient that it is too soon for callus debridement. Explained that I would debride her calluses as a courtesy for her today, in the future the appointments need to be further than 3 months apart or she will have to be self pay/ ABN for the care. The calluses/ IPK lesions were debrided with # 15 blade. Care was taken to remove the nucleated center of these lesions. Symptomatic relief obtained at the completion of treatment. I offloaded the inlays of both shoes to accommodate sub met head calluses/ porokeratosis. Reiterated the importance of Being consistent with twice a day urea cream and pumice stone after bathing or showering. Patient states she will try to do a better job of this. She will return as needed for callus debridement. This note was created with the assistance of a speech recognition program. While intending to generate a timely document that accurately reflects the content of the visit, no guarantee can be provided that every grammatical or spelling mistake has been or will be identified or corrected. Thank you for your understanding. Jenny Gandhi DPM documented in this encounter [facility] 04-25-2024 History of Presen t illness Narrative Images from the original note were not included. Subjective Patient ID: Aruna Benz is a 53 y.o. female who presents for Foot Callouses (Established pt presents today for callus debridement, BL feet.). HPI Patient presents complaining of bilateral foot pain due to callus lesions. She is here today for callus debridement. She states she typically uses urea cream and pumice stone at home but the calluses have become too thick and the treatments are ineffective and not removing enough callus to help her symptoms. Review of Systems Medications Current Outpatient Medications: biotin 1 MG capsule, Take by mouth., Disp: , Rfl: calcium carbonate (Tums) 500 MG chewable tablet, Chew 500 mg in the morning., Disp: , Rfl: cholecalciferol (Vitamin D-3) 1.25 MG (60950 UT) capsule, Take 50,000 Units by mouth 1 (one) time per week., Disp: , Rfl: escitalopram (Lexapro) 20 MG tablet, Take 20 mg by mouth in the morning., Disp: , Rfl: ferrous sulfate 8.8 mg/mL elemental iron elixir, 65 mg of iron., Disp: , Rfl: fluticasone (Flonase) 50 MCG/ACT nasal spray, Administer 1 spray into each nostril in the morning. Shake gently. Before first use, prime pump. After use, clean tip and replace cap.., Disp: , Rfl: Ocaliva 10 MG tablet, , Disp: , Rfl: omeprazole (PriLOSEC) [address] capsule, Take 40 mg by mouth in the morning. Take before meals. Do not crush or chew. ., Disp: , Rfl: phenazopyridine (Pyridium) 200 MG tablet, Take 200 mg by mouth 3 (three) times a day as needed for bladder spasms., Disp: , Rfl: phytonadione (Vitamin K) 100 MCG tablet, Take by mouth., Disp: , Rfl: tiZANidine (Zanaflex) 4 MG tablet, Take 4 mg by mouth every 6 (six) hours if needed for muscle spasms., Disp: , Rfl: traMADol (Ultram) 50 MG tablet, Take 50 mg by mouth., Disp: , Rfl: ursodiol (Actigall) 300 MG capsule, Take 300 mg by mouth in the morning and 300 mg before bedtime., Disp: , Rfl: valACYclovir (Valtrex) 1 g tablet, Take 1,000 mg by mouth in the morning and 1,000 mg before bedtime., Disp: , Rfl: zinc gluconate 50 MG tablet, Take 50 mg by mouth in the morning., Disp: , Rfl: Allergies Codeine Past Surgical History Past Surgical History: Procedure Laterality Date SECTION, CLASSIC 1992 SECTION, CLASSIC 1997 GASTRIC BYPASS 2000 HERNIA REPAIR 1997 HERNIA REPAIR 2005 HYSTERECTOMY 2005 SCALP LESION REMOVAL W/ FLAP AND SKIN GRAFT 2002 TUBAL LIGATION 1997 Family History No family history on file. Objective Physical Exam Constitutional: Appearance: Normal appearance. HENT: Head: Normocephalic and atraumatic. Cardiovascular: Comments: Pedal pulses: DP 2/4 bilateral, PT 2/4 bilateral. Skin temp is warm to warm. Varicosities: Mild, present Hair growth: present Localized edema noted dorsal lateral L foot Pulmonary: Effort: Pulmonary effort is normal. Musculoskeletal: Right lower leg: No edema. Left lower leg: No edema. Comments: RANGE MOTION: AJ and STJ ROM are normal and pain free. MUSCLE STRENGTH:Dorsiflexion, plantarflexion, inversion, eversion are 5/5 b/l. PAIN: There is pain at the calluses/IPKs DEFORMITIES: Lesser digits 2 through 5 bilaterally are contracted Skin: General: Skin is warm and dry. Capillary Refill: Capillary refill takes 2 to 3 seconds. Findings: No bruising or erythema. Comments: SKIN FINDINGS: No localized erythema or ecchymosis noted of the left foot. Webspaces are clean and dry HYPERKERATOTIC LESION: there are thick hyperkeratotic lesions noted submetatarsal heads 1 3 and 5 on the right and 1 and 5 on the left. Central to these hyperkeratotic lesions there are porokeratosis/ IPK is noted at the right submetatarsal head 1 and 3 and left submetatarsal head 1 and 5 NAIL PATHOLOGY: none Skin texture and turgor: normal Neurological: Mental Status: She is alert and oriented to person, place, and time. 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 Signal abnormality distal 2nd metatarsal with crescentic signal along subcortical subchondral bone of the articular surface. Mild flattening of the metatarsal head. There is edema throughout the 2nd MTPJ and distal and mid metatarsal shaft. [id number] Assessment/Plan ICD-10-CM 1. Callus L84 2. Porokeratosis Q82.8 3. Acquired keratoderma L85.1 4. Pain in both feet M79.671 M79.672 The calluses/ IPK lesions were debrided with # 15 blade. Care was taken to remove the nucleated center of these lesions. Symptomatic relief obtained at the completion of treatment. Reiterated the importance of restarting use of urea cream use twice a day then pumice stone use after bathing or showering. She will return as needed basis for debridement calluses. This note was created with the assistance of a speech recognition program. While intending to generate a timely document that accurately reflects the content of the visit, no guarantee can be provided that every grammatical or spelling mistake has been or will be identified or corrected. Thank you for your understanding. Jenny Gandhi DPM documented in this encounter [facility] 01-04-2024 History of Presen t illness Narrative The OARRS/MAPPS database was reviewed today and found to be appropriate. No indication of medication diversion, or non compliance. COLT Crane 01/04/24 1617 documented in this encounter [facility] 11-30-2023 History of Presen t illness Narrative The OARRS/MAPPS database was reviewed today and found to be appropriate. No indication of medication diversion, or non compliance. COLT Crane 11/30/23 1610 documented in this encounter [facility] 11-02-2023 History of Presen t illness Narrative Subjective Patient ID: Aruna Benz is a 52 y.o. female. Telehealth today to follow up on her controlled substance as well as her current covid infection and her foot pain She started with symptoms of covid during the night of within the last 12 - 20 hours and has cough, low grade fever, body aches and scratchy throat She is not having any trouble breathing and is eating and drinking ok She has not needed her inhaler We discussed use of paxlovid as she does have asthma and she defers but will use prednisone as well as prn rescue inhaler She has been using her tramadol as needed for pain and that continues to work well for her Her OARRS has been reviewed Her left foot is showing some improvement in that the swelling and redness have subsided with the most recent antibiotic however the pain in the 4th digit joint has not subsided, she is scheduled for the MRI on 11/05 The following portions of the patient's history were reviewed and updated as appropriate: allergies, current medications, past family history, past medical history, past social history, past surgical history, problem list, and medication reconciliation was completed including current medication and post discharge medication. Review of Systems Constitutional: Positive for fatigue and fever. HENT: Negative. Eyes: Negative. Respiratory: Positive for cough. Endocrine: Negative. Genitourinary: Negative. Musculoskeletal: Positive for arthralgias, gait problem and myalgias. Allergic/Immunologic: Negative. Hematological: Negative. Psychiatric/Behavioral: Negative. Objective Physical Exam Constitutional: General: She is not in acute distress. Eyes: Conjunctiva/sclera: Conjunctivae normal. Pulmonary: Effort: Pulmonary effort is normal. Neurological: Mental Status: She is alert and oriented to person, place, and time. Psychiatric: Thought Content: Thought content normal. Judgment: Judgment normal. Assessment/Plan Aruna was seen today for uri. Diagnoses and all orders for this visit: COVID - predniSONE (DELTASONE) 20 mg tablet; Take 1 tablet (20 mg total) by mouth in the morning for 7 days. Degeneration of lumbar intervertebral disc Cellulitis of left lower extremity Will manage covid infection with rest, hydration, inhaler and prednisone, call if worse in any way Continue tramadol for her chronic back pain Will plan to get urine testing with next visit Will await MRI results after 11/05 The OARRS/MAPPS database was reviewed today and found to be appropriate. No indication of medication diversion, or non compliance. Video Visit via Real-time Synchronous Audiovisual Provider Location: [facility] [address] [place] [address] Patient Location: Patient's home Video Visit Consent Statement: I discussed risks, benefits, and alternatives of a real-time synchronous audiovisual consultation with the patient (and any accompanying persons) including the risks that the patient's personal health details and medical records will be discussed over real-time, synchronous, interactive video/audio/telecommunication technology, the visit will not be recorded without the express consent of both the provider and the patient, and that there are some limitations compared to [id number] evaluations. The patient consented to the presence of additional virtual and/or in-person participants. We elected to proceed. COLT Crane 11/02/23 1631 documented in this encounter [facility] 11-02-2023 History of Presen t illness Narrative The OARRS/MAPPS database was reviewed today and found to be appropriate. No indication of medication diversion, or non compliance. COLT Crane 11/02/23 0824 documented in this encounter [facility] 10-13-2023 History of Presen t illness Narrative Subjective Patient ID: Aruna Benz is a 52 y.o. female. Left foot remains tender, sore, with redness despite antibiotic She continues to have pain with weight bearing this has not improved The joint of her 2nd toe and foot continue to ache and throb She also for 2 days now has cough, congestion and low grade fever Her grandchildren who live with her are also ill The following portions of the patient's history were reviewed and updated as appropriate: allergies, current medications, past family history, past medical history, past social history, past surgical history, problem list, and medication reconciliation was completed including current medication and post discharge medication. Review of Systems Constitutional: Positive for activity change, fatigue and fever. HENT: Positive for congestion, sinus pressure and sore throat. Eyes: Negative. Respiratory: Positive for cough. Negative for shortness of breath and wheezing. Cardiovascular: Negative. Gastrointestinal: Negative. Endocrine: Negative. Genitourinary: Negative. Musculoskeletal: Positive for arthralgias, gait problem and myalgias. Skin: Positive for wound. Hematological: Negative. Psychiatric/Behavioral: Negative. Objective Physical Exam Vitals and nursing note reviewed. Constitutional: General: She is in acute distress. HENT: Head: Normocephalic. Right Ear: Tympanic membrane, ear canal and external ear normal. Left Ear: Tympanic membrane, ear canal and external ear normal. Nose: Congestion and rhinorrhea present. Comments: Nasal passaages swollen and erythematous Mouth/Throat: Pharynx: Posterior oropharyngeal erythema (with heavy PND) present. Eyes: Conjunctiva/sclera: Conjunctivae normal. Cardiovascular: Rate and Rhythm: Normal rate and regular rhythm. Heart sounds: Normal heart sounds. No murmur heard. Pulmonary: Effort: Pulmonary effort is normal. Breath sounds: Normal breath sounds. Musculoskeletal: Cervical back: Neck supple. No tenderness. Right lower leg: No edema. Lymphadenopathy: Cervical: No cervical adenopathy. Skin: General: Skin is warm and dry. Capillary Refill: Capillary refill takes less than 2 seconds. Comments: Left forefoot and 2nd left metatarsal joint remain warm, erythematous mildly swollen and very tender to touch She is unable to tolerate weight bearing on the joint Pulses remain brisk in the foot Neurological: Mental Status: She is alert and oriented to person, place, and time. Gait: Gait abnormal. Psychiatric: Thought Content: Thought content normal. Judgment: Judgment normal. Assessment/Plan Aurna was seen today for follow-up. Diagnoses and all orders for this visit: Flu-like symptoms - POCT Influenza A/Influenza B/SARS-COV-2 Veritor COVID - dextromethorphan-guaiFENesin (MUCINEX DM) 30-600 mg tablet extended release 12 hr; Take 1 tablet by mouth every 12 (twelve) hours as needed (cough and congestion) for up to 10 days. Osteomyelitis of left foot, unspecified type ([facility]) - MR foot left without contrast; Future - clindamycin (CLEOCIN) 300 mg capsule; Take 1 capsule (300 mg total) by mouth 3 (three) times a day for 7 days. Will treat her covid symptomatically Had Dr Posey also examine her foot as this does not appear to be cellulitis but a deep tissue and or bone infection and with her exposure to pathogens in [place] desired another opinion on next steps She didn't respond at all to the cephalexin, will change to clindamycin and get MRI of the foot COLT Crane 10/13/23 1230 documented in this encounter [facility] 10-06-2023 History of Presen t illness Narrative Images from the original note were not included. Subjective Patient ID: Aruna Benz is a 52 y.o. female. She scraped her left 2nd toe in the salt water of [place] about two weeks ago, she was on amoxil at the time and initially it seemed to be healing but once she stopped it the foot started to throb and swell It is warm to the touch and swollen and painful The following portions of the patient's history were reviewed and updated as appropriate: allergies, current medications, past family history, past medical history, past social history, past surgical history, problem list, and medication reconciliation was completed including current medication and post discharge medication. Review of Systems Constitutional: Negative for chills, fatigue and fever. HENT: Negative. Eyes: Negative. Respiratory: Negative. Cardiovascular: Negative. Gastrointestinal: Negative. Musculoskeletal: Positive for arthralgias, gait problem, joint swelling and myalgias. Skin: Positive for wound. Hematological: Negative. Psychiatric/Behavioral: Negative. Objective Physical Exam Vitals and nursing note reviewed. HENT: Head: Normocephalic. Eyes: Pupils: Pupils are equal, round, and reactive to light. Cardiovascular: Rate and Rhythm: Normal rate and regular rhythm. Heart sounds: Normal heart sounds. No murmur heard. Pulmonary: Effort: Pulmonary effort is normal. Breath sounds: Normal breath sounds. Musculoskeletal: Comments: The left forefoot is tender from the MTP joint to the mid forefoot It is dull red and swollen and spongy to the touch The original wound is healed and there is only a visible 1-2 mm scab on the dorsum of the 2nd toe that is no longer red or tender and is not draining Picture taken Neurological: Mental Status: She is alert. Gait: Gait abnormal (limping). Psychiatric: Thought Content: Thought content normal. Judgment: Judgment normal. Assessment/Plan Aruna was seen today for scrape on toe. Diagnoses and all orders for this visit: Cellulitis of left lower extremity Other orders - CEPHalexin (KEFLEX) 500 mg capsule; Take 1 capsule (500 mg total) by mouth in the morning and 1 capsule (500 mg total) at noon and 1 capsule (500 mg total) in the evening and 1 capsule (500 mg total) before bedtime. Do all this for 7 days. Will treat this initially as a persistent cellultis although the concern with the proximity to the large joint of the 2nd digit and the diffuse swelling is that the infection may be in the joint and not the soft tissue, if she isn't responding to the cephalexin or she develops worsening symptoms, ie worsening pain, swelling, fever, chills she is to call back and she requires a bone scan as she may have osteomyelitis of her foot She is up to date on her tetanus The OARRS/MAPPS database was reviewed today and found to be appropriate. No indication of medication diversion, or non compliance. COLT Crane 10/06/23 1213 documented in this encounter [facility] 09-29-2023 History of Presen t illness Narrative The OARRS/MAPPS database was reviewed today and found to be appropriate. No indication of medication diversion, or non compliance. COLT Crane 09/29/23 1332 documented in this encounter [facility] 09-11-2023 History of Presen t illness Narrative Subjective Patient ID: Aruna Benz is a 52 y.o. female. She continues to feel ill from her apt two weeks ago She is finally bringing up mucos and it is thick green and is less tight but she continues to cough She remains congested and hoarse Her two year grand-daughter who shares a bedroom with her is currently being treated for RSV She is using her proventil inhaler and this is helpful Continues to frontal pressure and blows her nose frequently She is smoking less since being ill but has not stopped The following portions of the patient's history were reviewed and updated as appropriate: allergies, current medications, past family history, past medical history, past social history, past surgical history, problem list, and medication reconciliation was completed including current medication and post discharge medication. Review of Systems Constitutional: Positive for fatigue. HENT: Positive for congestion, sinus pressure and sinus pain. Eyes: Negative. Respiratory: Positive for cough. Negative for shortness of breath. Cardiovascular: Negative. Gastrointestinal: Negative. Endocrine: Negative. Genitourinary: Negative. Allergic/Immunologic: Negative. Neurological: Negative. Hematological: Negative. Psychiatric/Behavioral: Negative. Objective Physical Exam Vitals and nursing note reviewed. HENT: Head: Normocephalic. Right Ear: Tympanic membrane, ear canal and external ear normal. Left Ear: Tympanic membrane, ear canal and external ear normal. Nose: Congestion and rhinorrhea present. Comments: The mucousa is erythematous with copious purulent discharge Mouth/Throat: Comments: The posterior pharynx is erythematous and coated with PND Eyes: Conjunctiva/sclera: Conjunctivae normal. Cardiovascular: Rate and Rhythm: Normal rate and regular rhythm. Heart sounds: Normal heart sounds. No murmur heard. Pulmonary: Effort: Pulmonary effort is normal. Comments: Breath sounds somewhat reduced Has a deep hacking cough but no wheezes, rhonchi or rales noted Musculoskeletal: Cervical back: No tenderness. Lymphadenopathy: Cervical: No cervical adenopathy. Neurological: Mental Status: She is alert. Assessment/Plan Aruna was seen today for sinus problem. Diagnoses and all orders for this visit: Acute non-recurrent frontal sinusitis Tobacco abuse counseling Other orders - amoxicillin-pot clavulanate (AUGMENTIN) 875-125 mg per tablet; Take 1 tablet by mouth in the morning and 1 tablet before bedtime. Do all this for 10 days. - predniSONE (DELTASONE) 20 mg tablet; Take 1 tablet (20 mg total) by mouth in the morning for 7 days. - promethazine/dextromethorphan (promethazine-DM) 6.25-15 mg/5 mL syrup; Take 5 mL by mouth 4 (four) times a day as needed for cough. Will treat with a stronger broader spectrum antibiotic for a longer period as she is ill appearing Will also repeat the prednisone and provide something for the cough Continue the inhaler Strongly encouraged smoking cessation, unfortunately she is just not ready to quit COLT Crane 09/11/23 [id number] documented in this encounter [facility] 09-01-2023 History of Presen t illness Narrative [address] [place] [address] Patient: Aruna Benz Date of : 1970 Encounter Date: 09/01/2023 History of Present Illness: The patient is a 52 y.o. female, an established patient, and is here for Chief Complaint Patient presents with Cough Possible strep . HPI Patient has had a sore throat and cough for the last 2 weeks and the cough is worsening and keeping her up at night and starting to hurt her back and chest due to severity. She has increased drainage and some shortness of breath and wheezing at times. Her kids have been sick. She denies any fevers. Patient is a long-term heavy smoker and has been unable to quit despite trying nicotine patches previously. Problem List Items Addressed This Visit None Visit Diagnoses Bronchitis - Primary Relevant Medications albuterol (PROVENTIL HFA;VENTOLIN HFA) 90 mcg/actuation inhaler Past Medical, Family, and Social History Update: The following portions of the patient's history were reviewed and updated as appropriate: allergies, current medications, past family history, past medical history, past social history, past surgical history and problem list. Past Medical History: Diagnosis Date Anemia Anxiety Arthritis Asthma has outgrown GERD (gastroesophageal reflux disease) Herpes Primary biliary cholangitis (CMS-HCC) Urinary tract infection Visual impairment Past Surgical History: Procedure Laterality Date CYSTOSCOPY RETROGRADE PYELOGRAM Bilateral 12/28/2022 Performed by Jeremías Rogers MD at [facility] CYSTOSCOPY WITH [facility] BLADDER SOLUTUON N/A 12/28/2022 Performed by Jeremías Rogers MD at [facility] GASTRIC BYPASS 09/11/2000 HERNIA REPAIR 2003 HYSTERECTOMY 2008 LIVER BIOPSY Current Outpatient Medications Medication Sig Dispense Refill biotin 1 mg tablet Take 1 tablet (1 mg total) by mouth in the morning. calcium carbonate (OS-NILESH) 500 mg calcium (1,250 mg) chewable tablet Chew 1 tablet (500 mg total) and swallow in the morning. cholecalciferol (VITAMIN D3) 50,000 units capsule Take 1 capsule (50,000 Units total) by mouth in the morning. escitalopram (LEXAPRO) 20 mg tablet take 1 tablet by mouth every morning 90 tablet 1 FeroSuL 325 mg (65 mg iron) tablet Take 1 tablet (325 mg total) by mouth in the morning and 1 tablet (325 mg total) before bedtime. fluticasone propionate (FLONASE) 50 mcg/actuation nasal spray Administer 1 spray into each nostril as needed. eehsjdbchaar-wfvyines-clpzap (MULTIVITAMIN 50 PLUS) tablet 1 tablet in the morning. OCALIVA 5 mg tablet omeprazole (PriLOSEC) 40 mg capsule 1 capsule (40 mg total) in the morning and 1 capsule (40 mg total) before bedtime. phytonadione, vit K1, (phytonadione, vitamin K1,) 100 mcg tablet Take 12 tablets (1,200 mcg total) by mouth once a week. tiZANidine (ZANAFLEX) 4 mg tablet Take 1 tablet (4 mg total) by mouth in the morning and at bedtime. 60 tablet 2 traMADoL (ULTRAM) 50 mg tablet Take 1 tablet (50 mg total) by mouth 4 (four) times daily after meals and at bedtime as needed (as needed for back pain) for up to 30 days. 120 tablet 0 ursodioL (ACTIGALL) 300 mg capsule Take 1 capsule (300 mg total) by mouth in the morning and 1 capsule (300 mg total) at noon and 1 capsule (300 mg total) in the evening and 1 capsule (300 mg total) before bedtime. valACYclovir (VALTREX) 1000 mg tablet take 2 tablets by mouth every 12 hours for 1 day 4 tablet 5 zinc gluconate 50 mg tablet Take 1 tablet (50 mg total) by mouth in the morning. albuterol (PROVENTIL HFA;VENTOLIN HFA) 90 mcg/actuation inhaler Inhale 2 puffs every 6 (six) hours as needed for wheezing. 18 g 1 amoxicillin (AMOXIL) 500 mg capsule Take 1 capsule (500 mg total) by mouth in the morning and 1 capsule (500 mg total) before bedtime. Do all this for 7 days. 14 capsule 0 benzocaine-menthoL (CEPACOL SORE THROAT, DAWSON-MEN,) 15-2.6 mg lozenge Dissolve 1 lozenge in the mouth every 2 (two) hours as needed (sore throat). 14 lozenge 1 guaiFENesin (MUCINEX) 600 mg tablet extended release 12hr Take 1 tablet (600 mg total) by mouth every 12 (twelve) hours. 20 tablet 1 inhalational spacing device (AEROCHAMBER MV) spacer 1 each by miscellaneous route every 6 (six) hours as needed (use with albuterol). 1 each 0 nicotine (NICODERM CQ) 21 mg/[address] 1 patch on the skin daily. (Patient not taking: Reported on 09/01/2023) 30 patch 1 phenazopyridine (PYRIDIUM) 200 mg tablet Take 1 tablet (200 mg total) by mouth 3 (three) times a day as needed for bladder spasms. (Patient not taking: Reported on 09/01/2023) 10 tablet 0 predniSONE (DELTASONE) 20 mg tablet Take 1 tablet (20 mg total) by mouth in the morning and 1 tablet (20 mg total) before bedtime. Do all this for 5 days. 10 tablet 0 No current facility-administered medications for this visit. (All medications reviewed and updated by provider since last office visit or hospitalization) Allergies: Codeine Tobacco History: Social History Tobacco Use Smoking Status Every Day Packs/day: .25 Types: Cigarettes Smokeless Tobacco Never (If patient a smoker, smoking cessation counseling offered) Social History: Social History Substance and Sexual Activity Alcohol Use Yes Comment: Social Review of Systems: Review of Systems Constitutional: Negative for fatigue and fever. HENT: Positive for congestion, postnasal drip, rhinorrhea, sinus pressure and sore throat. Respiratory: Positive for cough, shortness of breath and wheezing. Cardiovascular: Negative. Gastrointestinal: Negative. Neurological: Negative. Physical Exam: BP 118/72 (BP Site: Right Arm, BP Postition: Sitting) Pulse 94 Temp 37.1 C (98.7 F) (Oral) Ht 177.8 cm (5' 10 ) Wt 82.6 kg (182 lb) SpO2 96% BMI 26.11 kg/m Physical Exam Vitals reviewed. Constitutional: General: She is not in acute distress. Appearance: Normal appearance. HENT: Head: Normocephalic and atraumatic. Right Ear: Hearing and external ear normal. No tenderness. A middle ear effusion is present. Left Ear: Hearing and external ear normal. No tenderness. A middle ear effusion is present. Ears: Comments: Multiple polyps or skin colored growths to TANNER EAC Mouth/Throat: Mouth: Mucous membranes are moist. Eyes: Pupils: Pupils are equal, round, and reactive to light. Cardiovascular: Rate and Rhythm: Normal rate and regular rhythm. Heart sounds: Normal heart sounds. Pulmonary: Effort: Pulmonary effort is normal. Breath sounds: Examination of the right-middle field reveals decreased breath sounds. Examination of the left-middle field reveals decreased breath sounds. Decreased breath sounds and rhonchi (LLL, RLL) present. Abdominal: Tenderness: There is no abdominal tenderness. Musculoskeletal: Right lower leg: No edema. Left lower leg: No edema. Skin: General: Skin is warm. Capillary Refill: Capillary refill takes less than 2 seconds. Neurological: General: No focal deficit present. Mental Status: She is alert and oriented to person, place, and time. Gait: Gait normal. Psychiatric: Mood and Affect: Mood normal. Behavior: Behavior normal. Thought Content: Thought content normal. Assessment and Plan: Aruna was seen today for cough. Diagnoses and all orders for this visit: Bronchitis - albuterol (PROVENTIL HFA;VENTOLIN HFA) 90 mcg/actuation inhaler; Inhale 2 puffs every 6 (six) hours as needed for wheezing. Other orders - predniSONE (DELTASONE) 20 mg tablet; Take 1 tablet (20 mg total) by mouth in the morning and 1 tablet (20 mg total) before bedtime. Do all this for 5 days. - guaiFENesin (MUCINEX) 600 mg tablet extended release 12hr; Take 1 tablet (600 mg total) by mouth every 12 (twelve) hours. - inhalational spacing device (AEROCHAMBER MV) spacer; 1 each by miscellaneous route every 6 (six) hours as needed (use with albuterol). - benzocaine-menthoL (CEPACOL SORE THROAT, DAWSON-MEN,) 15-2.6 mg lozenge; Dissolve 1 lozenge in the mouth every 2 (two) hours as needed (sore throat). - amoxicillin (AMOXIL) 500 mg capsule; Take 1 capsule (500 mg total) by mouth in the morning and 1 capsule (500 mg total) before bedtime. Do all this for 7 days. Follow-up: Will treat patient for bronchitis with steroids and amoxicillin as she is high-risk due to heavy smoking and her symptoms have gone on for the last 2 weeks. She can also use Mucinex and albuterol inhaler as she does not have nebulizer at home although she likely has COPD from long-term smoking, she does not have an official diagnosis from a PFT or imaging. If she has not better in the next 5-7 days she should notify provider or if she develops significant shortness of breath despite treatment above she should go to the ER. JOSE ONTIVEROS APRN-CNP 09/02/232201 documented in this encounter [facility] 08-25-2023 Miscellaneous Notes Formattin g of this note might be different from the original. Pt called and would like a refill on her TRAMADOL. Pharmacy is listed and correct. documented in this encounter [facility] 08-25-2023 Telephone encount er Note Pt called and would like a refill on her TRAMADOL. Pharmacy is listed and correct. [facility] 05-31-2023 Evaluation note Encounter Date Diagnosis Assessment Notes May, Primary biliary cirrhosis (ICD-10 - K74.3) [facility] Other 09-20-2023 Evaluation note* Encounter Date Diagnosis Assessment Notes Treatment Notes Treatment Clinical Notes May, Primary biliary cirrhosis (ICD-10 - K74.3) THE PATIENT IS FEELING WELL. SHE IS NOT HAVING ANY ITCHING OR YELLOWING OF THE EYES. SHE HAD HER LABS DRAWN THIS MORNING BUT THE RESULTS ARE NOT BACK YET. WE WILL CONTINUE HER MEDICATIONS UNCHANGED AT THIS TIME. IF HER LAB RESULTS ARE ELEVATED, WE WILL ADD OCALIVA. IF NOT, WE WILL HAVE HER RETURN AGAIN IN ONE YEAR WITH REPEAT LAB STUDIES AT THAT TIME. THE PATIENT WILL BE MAILED A REMINDER LETTER IN ONE YEAR. [facility] Other 03-01-2023 Evaluation note* Encounter Date Diagnosis Assessment Notes Treatment Notes Treatment Clinical Notes Nov, Dysuria (ICD-10 - R30.0) Nov, Acute cystitis with hematuria (ICD-10 - N30.01) Take medication as directed. Urine analysis shows abnormalities today in office. Urine culture will be sent to lab. Will call with results if resistance present to antibiotic. Increase fluid intake. Follow hygiene guidelines such as wiping front to back, avoid using perfumed lotions, bath beads, bubble bath. Prevention tips inlcude urinating after sexual intercourse. Follow up with primary care provider or financial management consultant if no improvement of symptoms. Nov, Sore throat (ICD-10 - J02.9) Nov, Allergic sinusitis (ICD-10 - J30.9) Take medication as directed. Use saline nasal spray may help with symptom relief. OTC medications such as Zyrtec, Emely or Claritin can help with symptoms during the peak of allergy season. Follow up with primary care provider if symptoms persist as a therapy plan may need to be made. [facility] Other 02-01-2023 Evaluation note* Encounter Date Diagnosis Assessment Notes Treatment Notes Treatment Clinical Notes Oct, Sinusitis, unspecified chronicity, unspecified location (ICD-10 - J32.9) Sinusitis home care material was printed Drink plenty fluids, get plenty of rest. Take the amoxicillin with clavulanate as prescribed until gone. Take the prednisone as prescribed. Use the fluticasone spray as prescribed and your symptoms improved. Take Tylenol or Motrin as needed for aches pains or fevers. Run a cool-mist humidifier at your bedside. Follow-up with your family physician if no improvement in 2 to 3 days Oct, Right otitis media with effusion (ICD-10 - H65.91) [facility] Other 04-20-2022 Evaluation note* Encounter Date Diagnosis Assessment Notes Treatment Notes Treatment Clinical Notes Dec, Cellulitis of left leg (ICD-10 - L03.116) Take the clindamycin as prescribed until gone. Continue home medications including the cephalexin for your UTI. Speak with the pharmacist about a good probiotic to take while taking these antibiotics. Follow-up with your family physician tomorrow as scheduled without fail. Go to the ER for worsening symptoms or concerns [facility] Other 03-29-2022 Evaluation note* Encounter Date Diagnosis Assessment Notes Treatment Notes Treatment Clinical Notes Nov, Primary biliary cirrhosis (ICD-10 - K74.3) CONTINUE ELO WITHOUT CHANGE LABS INDICATED ABOVE AND CMP BI YEARLY RTO ONE YEAR [facility] Other 10-25-2021 Evaluation note* Encounter Date Diagnosis Assessment Notes Treatment Notes Treatment Clinical Notes Jun, Dysuria (ICD-10 - R30.0) Jun, Acute cystitis with hematuria (ICD-10 - N30.01) Take medication as directed. Urine analysis shows abnormalities today in office. Urine culture will be sent to lab. Will call with results if warranted. Increase fluid intake. Follow hygiene guidelines such as wiping front to back, avoid using perfumed lotions, bath beads, bubble bath. Recommend follow up with primary care provider after treatment completed to make sure infection has cleared. [facility] Other evaluation noteNo InformationNort [employer] Other evaluation noteNo assessment information available [facility] Work Phone: evaluation noteNortKoemei Other evaluation note* Diagnosis Degeneration of lumbar intervertebral disc Degeneration of lumbar or lumbosacral intervertebral disc documented [facility] encounter [facility]* Diagnosis Cellulitis of left lower extremity- Primary documented in this encounter [facility]* Diagnosis Flu-like symptoms- Primary COVID Osteomyelitis of left foot, unspecified type ([facility]) [facility]* Diagnosis Bronchitis Bronchitis, not specified as acute or chronic documented in this [facility]* Diagnosis Degeneration of lumbar intervertebral disc Degeneration of lumbar or lumbosacral intervertebral disc documented in this encounter [facility]* Diagnosis COVID- Primary Degeneration of lumbar intervertebral disc Degeneration of lumbar or lumbosacral intervertebral disc Cellulitis of left lower extremity documented in this encounter [facility]* Diagnosis Closed nondisplaced fracture of first metatarsal bone of left foot with delayed healing, subsequent encounter- Primary documented in [facility]* Diagnosis Degeneration of lumbar intervertebral disc Degeneration of lumbar or lumbosacral intervertebral disc documented in this encounter [facility]* Diagnosis Callus- Primary Corns and callosities 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 Pain in both feet Metatarsalgia of both feet documented in this encounter [facility]* Diagnosis Abnormal findings in stool- Primary Nonspecific abnormal finding in stool contents documented in this encounter [facility]* Diagnosis Recurrent UTI- Primary Urinary tract infection, site not specified Degeneration of lumbar intervertebral disc Degeneration of lumbar or lumbosacral intervertebral disc documented in this encounter [facility]* Diagnosis Recurrent UTI- Primary Urinary tract infection, site not specified Degeneration of inte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- Primary Overweight documented in this encounter [facility]* Diagnosis Recurrent UTI- Primary Urinary tract infection, site not specified Degeneration of lumbar intervertebral disc Degeneration of lumbar or lumbosacral intervertebral disc documented in this encounter [facility]* Diagnosis Callus- Primary Corns and callosities 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 Pain in both feet documented in this encounter [facility]Evaluation note* Diagnosis Recurrent UTI- Primary Urinary tract infection, site not specified Eustachian tube dysfunction, right- Primary Fluid collection of middle ear documented in this encounter [facility]* Diagnosis Recurrent UTI- Primary Urinary tract infection, site not specified Degeneration of lumbar intervertebral disc Degeneration of lumbar or lumbosacral intervertebral disc documented in this encounter [facility]* Diagnosis Callus- Primary Corns and callosities 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 Pain in both feet documented in this encounter [facility] HealthcareEvaluation note* Diagnosis ETD (Eustachian tube dysfunction), right- Primary 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 documented in this encounter [facility]Evaluation note* Diagnosis Recurrent UTI- Primary Urinary tract infection, site not specified Degeneration of inte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- Primary documented in this encounter [facility]* Diagnosis Acute suppurative otitis media without spontaneous rupture of ear drum, recurrence not specified, unspecified laterality- Primary documented in this encounter [facility]* Diagnosis Degeneration of lumbar intervertebral disc Degeneration of lumbar or lumbosacral intervertebral disc documented [facility]* Diagnosis Bronchitis- Primary Bronchitis, not specified as acute or chronic [facility] Diagnosis Acute non-recurrent frontal sinusitis- Primary Tobacco abuse counseling [facility]* Diagnosis Degeneration of lumbar intervertebral disc Degeneration of lumbar or lumbosacral intervertebral disc [facility]* Diagnosis Conductive hearing loss of right ear with unrestricted hearing of left ear- Primary Eustachian tube dysfunction, bilateral [facility] encounter [facility] Narrative - Reported* Type Description Date Medical History back nerve pain Surgical History C section x 2 Surgical History gastric bypass Surgical History hernia repair and tummy tuck Surgical History partial hysterectomy Surgical History hernia x 4 Surgical History EGD Surgical History Colonoscopy Surgical History liver biopsy Hospitalization History see above surg [facility] Other History [facility] [employer] Other History general Narrative - Reported* Type Description Date Medical History back nerve pain Medical History Skin cancer Surgical History C section x 2 Surgical History gastric bypass Surgical History hernia repair and tummy tuck Surgical History partial hysterectomy Surgical History hernia x 4 Surgical History EGD Surgical History Colonoscopy Surgical History liver biopsy Surgical History skin cancer removal Hospitalization History see above surg [facility] Other InstructionsNot on filedocumented in this encounter [facility] filedocumented in this [facility] filedocumented in this [facility] filedocumented in this encounter [facility] filedocumented in this encounter [facility] on filedocumented in this encounter [facility] filedocumented in this encounter [facility] on filedocumented in this encounter [facility] on filedocumented in this encounter [facility]ructionsNot on filedocumented in this encounter [facility] SystemInstructionsNot on filedocumented in this encounter [facility] SystemInstructionsNot on filedocumented in this encounter [facility] SystemInst[facility]* Attachments The following attachments cannot be sent through Care Everywhere. * Acute bronchitis (Malay) [facility] Consultation (Routine) - Pending Review Specialty Diagnoses / Procedures Referred By Krystin bess Referred To Contact Podiatry Diagnoses Closed nondisplaced fracture of first metatarsal bone of left foot with delayed healing, subsequent encounter Lisette Nova, JUANA-YAMILA [address] [place] [address] Abdias Sams, DPM [address] [place] [address] Referral ID Status Reason Start Date Expiration Date Visits Requested Visits Authorized [id number] Pending Review Specialty Services Required 11/09/2023 11/08/2024 1 1 [facility] Summary Purpose Family History No Family History Records FoundNo Family History Records FoundNo Family History Records FoundNo Family History Records FoundNo Family History Records FoundNo Family History Records FoundNo Family History Records FoundNo Family History Records Found Advance Directives Advance Directive Response Recorded Date/ Time Advance Directives No July 3:02pm Chief Complaint and Reason for Visit Chief Complaint Dysuria Reason for Referral Specialty Diagnoses / Procedures Referred By Krystin bess Referred To Contact Diagnoses Abnormal findings in stool Procedures Colonoscopy Raul Christianson, DO [address] [facility], [facility] [place] [address] Referral ID Status Reason Start Date Expiration Date V isits Requested Visits Authorized [id number] Pending Review 06/17/2024 06/17/2025 1 1 Specialty Diagnoses / Procedures Referred By Krystin bess Referred To Contact Radiology Diagnoses Osteomyelitis of left foot, unspecified type ([facility]) Procedures MR foot left without contrast Lisette Nova, DUTY MANAGER-MACHINE TANK OPERATOR [address] [place] [address] Referral ID Status Reason Start Date Expiration Date V isits Requested Visits Authorized [id number] Pending Review 10/13/2023 10/12/2024 1 1 Additional Source Comments INFORMATION SOURCE (unrecogn ized section and content) DATE CREATED AUTHOR 07/23/2019 [facility] DATE CREATED AUTHOR AUTHOR'S ORGANIZ ATION 05/08/2020 [facility] DATE CREATED AUTHOR AUTHOR'S ORGANIZ ATION 12/18/2021 [facility] DATE CREATED AUTHOR AUTHOR'S ORGANIZ ATION 11/15/2022 [facility] DATE CREATED AUTHOR AUTHOR'S ORGANIZ ATION 03/05/2024 [facility] DATE CREATED AUTHOR AUTHOR'S ORGANIZ ATION 07/19/2024 [facility] DATE CREATED AUTHOR AUTHOR'S ORGANIZ ATION 08/26/2024 [facility] DATE CREATED AUTHOR AUTHOR'S ORGANIZ ATION 09/18/2024 [facility] EPIC REASON FOR VISIT (unrecogniz ed section and content) Reason Onset Date Comments Med Refill 09/29/2023 Reason Comments scrape on toe [place] and sore to touch Reason Comments Follow-up Foot still not any b cameron Reason Comments Med Refill Reason Onset Date Comments Med Refill 11/01/2023 Reason Comments URI Positive home covid test Also time for her controlled substance review Reason Comments Foot Callouses Established pt prese nts today for callus debridement. Reason Comments controlled Reason Comments Foot Callouses Established pt prese nts today for callus debridement, BL feet. Reason Comments Follow-up Urgent care chest an d ear swishing Reason Onset Date Comments Med Refill 08/26/2024 Reason Comments Foot Callouses Established pt prese nts today for callus care. Reason Comments Ear Problem Fluid in ear Reason Onset Date Comments having ear infection now 10/04/2024 Reason Comments Cough Possible strep Reason Comments Sinus Problem Reason Onset Date Comments Med Refill 01/04/2024 Care Teams (unrecognized sec tion and content) Team Status: Inactive Member Role Status Dates Laurie Posey DO Primary Care Provider Active BOOGIE Gaytan Attending Provider Active Team Status: Active Member Role Status Emanuel Posey DO Primary Care Provider Active Sterile Instrument Technician Relationship Specialty Start Date End Date Lisette Nova DUTY MANAGER-MACHINE TANK OPERATOR [address] [place] [address] PCP - General Internal Medicine 10/06/22 Sterile Instrument Technician Relationship Specialty Start Date End Date Lisette Nova DUTY MANAGER-MACHINE TANK OPERATOR [address] [place] [address] PCP - General Internal Medicine 10/06/22 Sterile Instrument Technician Relationship Specialty Start Date End Date Lisette Nova DUTY MANAGER-MACHINE TANK OPERATOR [address] [facility] [place] [address] PCP - General Internal Medicine 10/06/22 Sterile Instrument Technician Relationship Specialty Start Date End Date Lisette Nova DUTY MANAGER-MACHINE TANK OPERATOR [address] [facility] [place] [address] PCP - General Internal Medicine 10/06/22 Sterile Instrument Technician Relationship Specialty Start Date End Date Lisette Nova DUTY MANAGER-MACHINE TANK OPERATOR [address] [facility] [place] [address] PCP - General Internal Medicine 10/06/22 Sterile Instrument Technician Relationship Specialty Start Date End Date Lisette Nova DUTY MANAGER-MACHINE TANK OPERATOR [address] [place] [address] PCP - General Internal Medicine 10/06/22 Sterile Instrument Technician Relationship Specialty Start Date End Date Lisette Nova DUTY MANAGER-MACHINE TANK OPERATOR [address] [facility] [place] [address] PCP - General Internal Medicine 10/06/22 Sterile Instrument Technician Relationship Specialty Start Date End Date Lisette Nova, DUTY MANAGER-[facility] [address] [place] [address] PCP - General Internal Medicine 10/06/22 Sterile Instrument Technician Relationship Specialty Start Date End Date Lisette Nova, DUTY MANAGER-MACHINE TANK OPERATOR [address] [place] [address] PCP - General Internal Medicine 10/06/22 Sterile Instrument Technician Relationship Specialty Start Date End Date Raul Christianson MD [address] [place] [address] PCP - General Family Medicine 05/04/23 Sterile Instrument Technician Relationship Specialty Start Date End Date Raul Christianson MD [address] [place] [address] PCP - General Family Medicine 05/04/23 Sterile Instrument Technician Relationship Specialty Start Date End Date Raul Christianson DO [address] [place] [address] PCP - General Family Medicine 02/10/24 Sterile Instrument Technician Relationship Specialty Start Date End Date Raul Christianson DO [address] [place] [address] PCP - General Family Medicine 02/10/24 Sterile Instrument Technician Relationship Specialty Start Date End Date Raul Christianson DO [address] [place] [address] PCP - General Family Medicine 02/10/24 Sterile Instrument Technician Relationship Specialty Start Date End Date Raul Christianson DO [address] [place] [address] PCP - General Family Medicine 02/10/24 Sterile Instrument Technician Relationship Specialty Start Date End Date Raul Christianson MD [address] [place] [address] PCP - General Family Medicine 05/04/23 Sterile Instrument Technician Relationship Specialty Start Date End Date Raul Christianson MD [address] [place] [address] PCP - General Family Medicine 05/04/23 Sterile Instrument Technician Relationship Specialty Start Date End Date Raul Christianson DO [address] [place] [address] PCP - General Family Medicine 02/10/24 Sterile Instrument Technician Relationship Specialty Start Date End Date Raul Christianson DO [address] [place] [address] PCP - General Family Medicine 02/10/24 Sterile Instrument Technician Relationship Specialty Start Date End Date Raul Christianson MD [address] [place] [address] PCP - General Family Medicine 05/04/23 Sterile Instrument Technician Relationship Specialty Start Date End Date Raul Christianson MD [address] [place] [address] PCP - General Family Medicine 05/04/23 Sterile Instrument Technician Relationship Specialty Start Date End Date Raul Christianson MD [address], [place] [address] PCP - General Family Medicine 05/04/23 Sterile Instrument Technician Relationship Specialty Start Date End Date Raul Christianson MD [address], [place] [address] PCP - General Family Medicine 05/04/23 Sterile Instrument Technician Relationship Specialty Start Date End Date Raul Christianson DO [address], [place] [address] PCP - General Family Medicine 02/10/24 Sterile Instrument Technician Relationship Specialty Start Date End Date Raul Christianson MD [address], [place] [address] PCP - General Family Medicine 05/04/23 Sterile Instrument Technician Relationship Specialty Start Date End Date Raul Christianson MD [address], [place] [address] PCP - General Family Medicine 05/04/23 Sterile Instrument Technician Relationship Specialty Start Date End Date Lisette Nova APRN-MACHINE TANK OPERATOR [address] [place] [address] PCP - General Internal Medicine 10/06/22 Sterile Instrument Technician Relationship Specialty Start Date End Date Lisette Nova APRN-MACHINE TANK OPERATOR [address] [place] [address] PCP - General Internal Medicine 10/06/22 Sterile Instrument Technician Relationship Specialty Start Date End Date Raul Christianson MD [address] [facility] [place] [address] PCP - General Family Medicine 05/04/23 Goals (unrecognized section and content) Goals may be documented in a n alternate section FOR RECORDS PERTAINING TO PATIENTS WHO ARE OR HAVE BEEN ENROLLED IN A CHEMICAL DEPENDENCY/SUBSTANCEABUSE PROGRAM, SOME INFORMATION MAY BE OMITTED. This clinical summary was aggregated from multiple sources. Caution should be exercised in using it in the provision of clinical care. This summary normalizes information from multiple sources, and as a consequence, information in this document may materially change the coding, format and clinical context of patient data. In addition, data may be omitted in some cases. CLINICAL DECISIONS SHOULD BE BASED ON THE PRIMARY CLINICAL RECORDS. [email or web address] [email or web address] provides no warranty or guarantee of the accuracy or completeness of information in this document.
[2024-10-17] MEDS: LACTATED RINGER'S SOLUTION 1,000 ML 50 ML IV (08:10)
[2024-10-17] MEDS: ACETAMINOPHEN 325 MG TABLET 650 MG PO (09:44)
== END 2024-10-17 10:27 | disposition home or self-care (01) ==
PROVIDERS: PCP Internal Medicine; Visit Provider Otolaryngology
PROC: (CPT 126; principal; 2024-10-17 08:30)
DX: H69.91 Unspecified Eustachian tube disorder, right ear (principal); H65.91 Unspecified nonsuppurative otitis media, right ear; Z90.49 Acquired absence of other specified parts of digestive tract; Z90.710 Acquired absence of both cervix and uterus; Z98.84 Bariatric surgery status; K74.60 Unspecified cirrhosis of liver; K21.9 Gastro-esophageal reflux disease without esophagitis
CPT/HCPCS: 69436; 36415; J1100; J2250; J2371; J2405; J2704; J3010